=== PATIENT | male | born 1955 | race Caucasian/White ===

== ENCOUNTER 2017-11-26 09:00 | Observation (INO) | payer BC ==
--- NOTE | 2017-11-26 09:54 | ED ---
Shortness of Breath - HPI Summary HPI Summary: This patient is a 62 year old M presenting to ED with a chief complaint of SOB since 11/16/17. The CC is described as worsened since onset. The patient saw Dr. Bowen 2 weeks ago and was dx of UTI. On 11/22/17 the patient reports he had been out in the sun all day, then at night he felt like shit and SOB. The patient rates the pain 0/10 in severity. Symptoms aggravated by ambulation. Symptoms alleviated by nothing. Patient reports chills and some swelling of bilateral LE. Patient denies calf tenderness, fever, CP, BUSH, dizziness, abdominal pain, and urinary discomfort. PMHx of DM, HTN, back injury from fall of 16 ft and broke 6 vertebrae 21 years ago. PSHx include cholecystectomy. The patient has a L knee brace due to loss of sensation in the L . The patient does self catherizations for urination because he is unable to void on his own. The patient uses elbow crutches to walk. Patient is a non-smoker. Patient has FHx of CAD of mother and denies FHx of PE and DVT. Current vitals include 95 BPM, 97 O2 sat, and BP 190/88. Home Medications Medication Instructions Recorded Confirmed Type Amlodipine Besylate 10 mg PO DAILY 08/18/13 10/17/15 History Aspirin [Aspirin 81] 81 mg PO DAILY 08/18/13 10/17/15 History Atorvastatin* [Lipitor 40 MG*] 40 mg PO DAILY 08/18/13 10/17/15 History Insulin Aspart [Novolog] units SUBCUT TID 08/18/13 01/30/14 History Insulin Glargine [Lantus Solostar] 50 units SUBCUT BEDTIME 08/18/13 10/17/15 History Nebivolol HCl [Bystolic] 20 mg PO DAILY 08/18/13 10/17/15 History Clonidine HCl 0.3 mg PO BID 01/30/14 10/17/15 History Lisinopril TAB* [Prinivil TAB*] 20 mg PO DAILY 01/30/14 10/17/15 History Sitagliptin (NF) [Januvia (NF)] 50 mg PO DAILY 10/13/15 10/17/15 History Cefuroxime 500 MG(NF) 500 mg PO BID 11/26/17 11/26/17 History - History of Current Complaint Chief Complaint: EDShortnessOfBreath Time Seen by Provider: 11/26/17 09:34 Hx Obtained From: Patient Onset/Duration: Sudden Onset, Lasting Weeks - since 11/16/17, Still Present Timing: Constant Current Severity: None Dyspnea At: Exertion - ambulation Alleviating Factors: Nothing Associated Signs & Symptoms: Chills - Patient reports chills and some swelling of bilateral LE. Patient denies calf tenderness, fever, CP, BUSH, dizziness, abdominal pain, and urinary discomfort. - Allergy/Home Medications Allergies/Adverse Reactions: Allergies Allergy/AdvReac Type Severity Reaction Status Date / Time sulfamethoxazole Allergy Severe Diarrhea Verified 11/26/17 09:25 [From Bactrim] trimethoprim [From Bactrim] Allergy Severe Diarrhea Verified 11/26/17 09:25 Home Medications: Home Medications Cefuroxime 500 MG(NF) 500 mg PO BID 11/26/17 [History Confirmed 11/26/17] PMH/Surg Hx/FS Hx/Imm Hx Previously Healthy: No Endocrine/Hematology History: Reports: Hx Diabetes Cardiovascular History: Reports: Hx Coronary Artery Disease, Hx Hypertension - Surgical History Surgery Procedure, Year, and Place: SPINE FX REPAIR 18 YRS AGO- RESIDUAL PARALYSIS TO LLE, CHOLECYSTECTOMY - Immunization History Immunizations Up to Date: Yes Infectious Disease History: No Infectious Disease History: Denies: Traveled Outside the [place] in Last 30 Days - Family History Known Family History: Positive: Cardiac Disease, Other Family History: Mother had an IN at 38; denies FHx of PE or DVT - Social History Alcohol Use: Occasionally Alcohol Amount: 1-2 beer per week Substance Use Type: Reports: None Smoking Status (MU): Never Smoked Tobacco Review of Systems Positive: Chills. Negative: Fever Negative: Chest Pain Positive: Shortness Of Breath Negative: Abdominal Pain Positive: other - denies urinary discomfort Positive: Edema - some swelling of bilateral LE, Other - denies calf tenderness Neurological: Other - denies dizziness Negative: Headache Psychological: Normal All Other Systems Reviewed And Are Negative: Yes Physical Exam - Summary Physical Exam Summary: Appearance: Well-appearing, moderate pain distress, well-nourished, SOB at rest , but able to speak full sentences Skin: Warm, complexion is joanna, dry Head: Normal Head/Face inspection, atraumatic Eyes: Conjunctiva clear ENT: Normal inspection Neck: Supple, no nodes, no JVD Respiratory: Lungs clear, SOB at rest Cardio: RRR, No murmur, pulses normal, brisk capillary refill Abdomen: Soft, nontender Bowel sounds: Present Musculoskeletal: Strength Intact/ROM intact, no calf tenderness, 2+ edema bilaterally, patient is wearing a brace on LLE that is removed and no bruising, abrasions or calf tenderness or bony tenderness noted . Psychological: Normal Neuro: Alert, muscle tone normal, no focal deficit Triage Information Reviewed: Yes Vital Signs On Initial Exam: Initial Vitals Temp Pulse Resp BP Pulse Ox 98.3 F 105 20 200/82 98 11/26/17 09:19 11/26/17 09:19 11/26/17 09:19 11/26/17 09:19 11/26/17 09:19 Vital Signs Reviewed: Yes Diagnostics - Vital Signs Vital Signs Temp Pulse Resp BP Pulse Ox 11/26/17 09:19 98.3 F 105 20 200/82 98 - Laboratory Result Diagrams: 11/28/17 06:28 11/28/17 06:28 Lab Statement: Any lab studies that have been ordered have been reviewed, and results considered in the medical decision making process. - Radiology CXR Radiology Interpretation Completed By: Radiologist - No evidence for acute intrathoracic disease. ED physician has reviewed this radiology report. - EKG 0939 Cardiac Rate: NL - 96 BPM EKG Rhythm: Sinus Rhythm ST Segment: Non-Specific Ectopy: None EKG Interpretation: An EKG at 0939 reveals nml AV/IV CT, nml QTc, and nml axis. EKG Comparison: No Significant Change - from 07/16/16 Re-Evaluation - Re-Evaluation First Eval Re-Evaluation Time: 11:14 Change: Unchanged Comment: Patient is still SOB at rest. Discussed plan for admission with the patient. Patient understands and agrees with this plan. Current vitals are 68 BPM, 98 O2, BP 152/72. Course/Dx - Course Assessment/Plan: This patient is a 62 year old M presenting to ED with a chief complaint of SOB since 11/16/17. CXR reveals no evidence for acute intrathoracic disease. EKG done at 0939 shows NSR at 96 BPM, nml AV/IV CT, nml QTc, and nml axis. No significant change from 07/16/16. The patient will be admitted with dx of dyspnea, poorly controlled DM, elevated trop, elevated d-dimer, and chronic kidney disease, stage 4. Patient understands and agrees with this plan. Pt is high risk for PE with his brace and his limited ambulation. Pt is also high risk for CAD with DM, HTN and prior CAD risk factors. Elevated troponin may be associated with his renal disease. It is not a STEMI based on EKG findings. Pt is admitted to hospitalists for further evaluation and treatment. - Diagnoses Differential Diagnosis/HQI/PQRI: Positive: CHF, IN, Pulmonary Embolism, Unstable Angina Provider Diagnoses: Dyspnea, Poorly controlled diabetes mellitus, Elevated troponin, Elevated d- dimer, Chronic kidney disease, stage 4 (severe) - Physician Notifications Discussed Care of Patient With: Dio Noel Time Discussed With Above Provider: 11:15 Instructed by Provider To: Other - Consulted Dr. Noel who accepts the patient for admission. Discharge - Sign-Out/Discharge Documenting (check all that apply): Patient Departure - Discharge Plan Condition: Stable Disposition: ADMITTED TO [facility] - Billing Disposition and Condition Condition: STABLE Disposition: Admitted to [facility] - Attestation Statements Document Initiated by Scribe: Yes Documenting Scribe: Frantz Alvarez Provider For Whom Liaibe is Documenting (Include Credential): Lena Giron MD Scribe Attestation: Frantz Toscano, scribed for Lena Giron MD on 12/01/17 at 2057. Scribe Documentation Reviewed: Yes Provider Attestation: The documentation as recorded by the Frantz hoskins accurately reflects the service I personally performed and the decisions made by , Lena Giron MD
[2017-11-26 10:17] LABS: ABS Basophils 0.1 10^3/ul (0-0.2); ABS Eosinophils 0.4 10^3/ul (0-0.6); ABS Lymphocytes 1.2 10^3/ul (1.0-4.8); ABS Monocytes 0.8 10^3/ul (0-0.8); ABS Neutrophils 10.1 10^3/ul (1.5-7.7); ABS Nucleated RBC 0 10^3/ul; Eosinophil % 3.3 % (0-6); Hematocrit 33 % (42-52); Hemoglobin 11.1 g/dl (14.0-18.0); Lymphocyte % 9.5 % (25-47); Mean Corpuscular HGB Conc 34 g/dl (31-36); Mean Corpuscular Hemoglobin 30 pg (27-31); Mean Corpuscular Volume 89 fL (80-94); Mean Platelet Volume 7.5 um3 (7.4-10.4); Nucleated Red Blood Cells % 0; Platelet Count 275 10^3/ul (150-450); Red Blood Count 3.67 10^6/ul (4.00-5.40); Red Cell Distribution Width 13 % (10.5-15); White Blood Count 12.7 10^3/ul (3.5-10.8)
[2017-11-26 10:27] LABS: INR 0.96 (0.77-1.02)
[2017-11-26 10:37] LABS: EGFR Non-African American 18.4 (>60)
--- NOTE | 2017-11-26 10:58 | RAD ---
Indication: New onset shortness of breath. Comparison: January 30, [address] and chest radiograph. Technique: Upright AP 0955 hours Report: No focal pulmonary lesion, compelling alveolar consolidation, pleural effusion, pneumothorax. Top normal heart size. Unremarkable central pulmonary vasculature and mediastinal contours. Thoracic lumbar junction spinal fusion hardware noted. IMPRESSION: #. No evidence for acute intrathoracic disease.
[2017-11-26] MEDS ORDERED: Albuterol 2.5 MG/3 ML NEB.SOL* (0.083%) INH PRN (12:36)
[2017-11-26] MEDS ORDERED: Ondansetron INJ* 2 MG/ML VIAL IV PRN (12:36)
[2017-11-26] MEDS ORDERED: Al Hydrox/Mg Hydrox/Simet LIQ* 30 ML UDC PO PRN (12:36)
[2017-11-26] MEDS ORDERED: Acetaminophen TAB* 325 MG PO PRN (12:36)
[2017-11-26] MEDS ORDERED: Dextrose 50% Syringe 50 ML* 25 GM/50 ML SYRINGE IV PUSH PRN (12:43)
[2017-11-26] MEDS ORDERED: Magnesium Sulfate 1 GM IV* 1 GM/100 ML BAG IV ONE (12:48)
[2017-11-26] MEDS ORDERED: Heparin VIAL(*) 5000 UNITS/ML VIAL (FIVE THOUSAND) SUBCUT SCH (14:00)
--- NOTE | 2017-11-26 14:39 | RAD ---
Indication: Shortness of breath. Ventilation and perfusion lung scan was performed. Ventilation scan was performed after administration of 8.7 mCi of xenon-133. Perfusion lung scan was performed after intravenous injection of 6.3 mCi of technetium 99 and macroaggregated albumin. There is homogeneous distribution of the radiotracer throughout the lung kraus. No evidence of segmental or subsegmental perfusion defects identified. No evidence of air trapping is noted on the ventilation scan. Recent chest x-ray demonstrates no evidence of alveolar consolidation. IMPRESSION: No evidence of ventilation or perfusion mismatches to suggest pulmonary embolus. Low probability scan for pulmonary emboli.
[2017-11-26] MEDS ORDERED: Perflutren Lipid Microsphere* 3 ML VIAL ONE (15:47)
[2017-11-26 16:36] LABS: ABS Basophils 0.1 10^3/ul (0-0.2); ABS Eosinophils 0.3 10^3/ul (0-0.6); ABS Lymphocytes 1.2 10^3/ul (1.0-4.8); ABS Monocytes 0.9 10^3/ul (0-0.8); ABS Neutrophils 8.7 10^3/ul (1.5-7.7); ABS Nucleated RBC 0 10^3/ul; Eosinophil % 2.5 % (0-6); Hematocrit 34 % (42-52); Hemoglobin 11.4 g/dl (14.0-18.0); Mean Corpuscular HGB Conc 34 g/dl (31-36); Mean Corpuscular Hemoglobin 30 pg (27-31); Mean Corpuscular Volume 90 fL (80-94); Mean Platelet Volume 7.5 um3 (7.4-10.4); Nucleated Red Blood Cells % 0; Platelet Count 273 10^3/ul (150-450); Red Blood Count 3.75 10^6/ul (4.00-5.40); Red Cell Distribution Width 13 % (10.5-15); White Blood Count 11.3 10^3/ul (3.5-10.8)
[2017-11-26] MEDS: Heparin VIAL(*) 5000 UNITS/ML VIAL (FIVE THOUSAND) IV PRN ×2 (16:50→23:38)
[2017-11-26] MEDS: Heparin DRIP 25,000 UNITS(*) 25,000 UNITS/500 ML BAG IV SCH (16:50)
[2017-11-26] MEDS: Insulin LISPRO* 1 UNITS UNIT SUBCUT SCH ×2 (16:51→22:06)
[2017-11-26 16:54] LABS: EGFR Non-African American 18.5 (>60)
--- NOTE | 2017-11-26 17:09 | ECHO ---
Patient: STEF OCAMPO [facility] Rec#: [id number] : 1955 Date: 11/26/2017 Age: 62y Height: 173 cm / 68.1 in Weight: 107 kg / 235.8 lbs Sex: M BSA: 2.2 Room#: [facility] Admit Date#: 11/26/2017 Type: Inpatient Referring: Norma Arcos Reading: Blanca Chaparro MD Cigarette Paper Tester: Elina Gabriel,ZHANNACS,RDMS CC: Adam Sutherland MD Transthoracic Echocardiogram Indication: CHF BP: 149/78 HR: 68 Rhythm: NSR Findings History: Dyspnea, DM, HTN, CKD Technical Comments: The study quality is fair. The study is technically limited due to patient body habitus. Left Ventricle: The left ventricular chamber size is normal. Global left ventricular wall motion and contractility are within normal limits. The estimated ejection fraction is 50-55%. There is an E to A reversal in the mitral valve flow pattern suggestive of diastolic dysfunction. Left Atrium: The left atrium is mildly dilated. Right Ventricle: The right ventricular cavity size is normal. The right ventricular global systolic function is hyperdynamic. Right Atrium: The right atrial cavity size is normal. Aortic Valve: The aortic valve is trileaflet. Systolic excursion of the aortic valve is normal. There is aortic annular calcification. There is no evidence of aortic regurgitation. There is no evidence of aortic stenosis. Mitral Valve: The mitral valve leaflets appear normal. There is no evidence of mitral regurgitation. There is no evidence of mitral stenosis. Tricuspid Valve: The tricuspid valve leaflets are normal. There is no evidence of tricuspid valve regurgitation. Unable to estimate the right ventricular systolic pressure. Pulmonic Valve: There is no evidence of pulmonic valve thickening. There is a trace pulmonic regurgitation. Pericardium: There is no significant pericardial effusion. Aorta: There is borderline dilatation of the ascending aorta. There is mild dilatation of the aortic arch. There is no dilation of the aortic root. Pulmonary Artery: The main pulmonary artery is not well visualized. Venous: The inferior vena cava appears normal in size. There is less than 50% respiratory change in the inferior vena cava dimension. Contrast: Definity was used to optimize study. A total of 2.5 ml was used Conclusions Global left ventricular wall motion and contractility are within normal limits. The estimated ejection fraction is 50-55%. There is an E to A reversal in the mitral valve flow pattern suggestive of diastolic dysfunction. The right ventricular global systolic function is hyperdynamic. All valves appear structurally normal with normal systolic function. There is mild dilatation of the aortic arch. Compared with prior echo of 10/08/09, EF has improved/normalized from 20-25%, prior MR, TR no longer seen. Previously PA pressure estimated at 62 mmHg. Measurements Name Value Normal Range RVIDd (AP) 2D 3.8 cm (0.9 - 2.6) RVDdMajor (2D) 3.1 cm (2.2 - 4.4) RAd ISD 4CH 5 cm (3.4 - 4.9) RA (A4C)W 3.2 cm (2.9 - 4.6) IVSd (2D) 1 cm (0.6 - 1) LVPWd (2D) 1 cm (0.6 - 1) LVIDd (2D) 5.3 cm (3.6 - 5.4) LVIDs (2D) 3.5 cm - LV FS (2D) 34 % (25 - 45) Aortic Annulus 2.3 cm (1.4 - 2.6) Ao root diameter (2D) 3.2 cm (2.1 - 3.5) Ascending Ao 3.5 cm (2.1 - 3.4) Aortic arch 3.7 cm (1.8 - 3.4) LA dimension (AP) 2D 4.9 cm (2.3 - 3.8) LAd ISD 4CH 5.9 cm (2.9 - 5.3) LA ISD 4CH W 4.8 cm (2.5 - 4.5) Name Value Normal Range LA ESV BP (A/L) index 29 ml/m2 - Name Value Normal Range MV E-wave Vmax 0.9 m/sec - MV deceleration time 222 msec - MV A-wave Vmax 1.2 m/sec - MV E:A ratio 0.8 ratio - P. vein D-wave Vmax 0.6 m/sec - P. vein S:D Vmax ratio 1.2 ratio - P. vein A-wave duration 129 msec - LV septal e' Vmax 0.07 m/sec - LV lateral e' Vmax 0.11 m/sec - LV E:e' septal ratio 13.5 ratio - LV E:e' lateral ratio 8 ratio - Name Value Normal Range AV Vmax 1.8 m/sec - AV VTI 42 cm - AV peak gradient 13 mmHg - AV mean gradient 7 mmHg - LVOT diameter 2.2 cm - LVOT Vmax 1.2 m/sec - LVOT VTI 28 cm - LVOT peak gradient 6 mmHg - LVOT mean gradient 3 mmHg - SAYDA (continuity Vmax) 2.6 cm2 - JIM Vmax 0.6 m/sec - Name Value Normal Range MVA (continuity VTI) 2.6 cm2 - Name Value Normal Range RAP 8 mmHg - IVC diameter 1.5 cm - Name Value Normal Range PV Vmax 1.1 m/sec - PV peak gradient 5 mmHg -
[2017-11-26] MEDS ORDERED: Insulin GLARGINE(*) 1 UNITS UNIT SUBCUT SCH (21:00)
--- NOTE | 2017-11-26 21:18 | HP ---
CC: Dr. Sutherland * ADMISSION HISTORY AND PHYSICAL: DATE OF ADMISSION: 11/26/17 PATIENT OF ATTENDING HOSPITALIST: Dr. Robby Noel.* (DICTATED BY AMELIA REED) PRIMARY CARE PHYSICIAN: Dr. Sutherland. CHIEF COMPLAINT: Shortness of breath. HISTORY OF PRESENT ILLNESS: Mr. Mckay is a pleasant 62-year-old gentleman with past medical history significant for hypertension, insulin-dependent diabetes mellitus, back injury from fall at age 21 resulting in left lower extremity paralysis, for which he has been using a left knee brace, who presented to the emergency room earlier today with complaints of worsening shortness of breath for the past 10 days. The patient reports that his shortness of breath started about 2 weeks ago and has gotten progressively worse, usually with exertion; however, he denies any chest pain or history of MD. He had a nuclear stress test done 3 or 4 years ago; however, I do not see any notes from Cardiology in that regards. His last known cardiac catheterization was back in 2009 revealing significant left coronary artery blockage and the patient had failed to maintain any followup with Dr. Baumann since then. He takes baby aspirin on a daily basis and denies any significant chest pain, but noted to be short of breath for the past 10 days. The patient denies any cough, dyspnea at rest, or orthopnea. He has been paralyzed on the left lower extremity since his accident back at age 21; however, he is able to ambulate using his left knee brace as well as his crutches. Due to his injury, he is unable to void on his own and he has been doing self-catheterization at home as well. He was recently seen and diagnosed by Dr. Bowen with urinary tract infection for which he takes twice daily. He is a nonsmoker and denies any history of MD; however, he has family history of coronary artery disease in his mother. He denies any calf pain or history of DVT or PE. The patient was evaluated in the emergency room and found to have slightly elevated white count of 12,000 with normal chest x-ray. His troponin was also elevated at 0.07 on the first draw. His EKG showed no significant ST changes. His D-dimer was elevated at 625 and given his history of chronic kidney disease, the patient was not a good candidate for CTA of the chest, for which a ventilation perfusion scan of the lungs was ordered and the results are pending at this time. Given his health issues and his current complaint of shortness of breath as well as elevated troponin and his known chronic kidney disease, we were asked to see the patient for further evaluation and to consider admission under hospitalist services. PAST MEDICAL HISTORY: As mentioned above, significant for: 1. Hypertension. 2. Insulin-dependent diabetes mellitus. 3. Hyperlipidemia. 4. Coronary artery disease. 5. Urinary retention with self-catheterization at home. 6. History of back injury from fall at age 21 with broken 6 vertebrae. 7. 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 PAST SURGICAL HISTORY: Significant for cholecystectomy and back surgery due to fall. CURRENT MEDICATIONS: His medications at home include: 1. Norvasc 10 mg p.o. daily. 2. Aspirin 81 mg p.o. daily. 3. Lipitor 40 mg p.o. daily. 4. Cefuroxime 500 mg p.o. b.i.d. 5. Clonidine 0.3 mg p.o. b.i.d. 6. Insulin NovoLog per sliding scale. 7. Insulin Lantus 50 units subcu q.h.s. 8. Lisinopril 20 mg p.o. daily. 9. Bystolic 20 mg p.o. daily. 10. Januvia 50 mg p.o. daily. ALLERGIES: He is allergic to Bactrim. FAMILY HISTORY: Significant for family history of coronary artery disease in his mother. Denies any family history of PE or DVT. SOCIAL HISTORY: The patient is a nonsmoker who denies alcohol intake. 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 His , Amy, is the healthcare proxy carrier and he wishes to be a full code. REVIEW OF SYSTEMS: See HPI. Otherwise, 14 points review of systems were evaluated and were essentially negative. PHYSICAL EXAMINATION GENERAL: He is a pleasant, healthy-appearing, upper middle-aged gentleman, in no acute distress or discomfort at the time of admission. VITAL SIGNS: Revealed temperature of 98.3, pulse of 73, respirations of 17 with O2 sats of 98% on room air, his blood pressure is 156/69. HEENT: Head is normocephalic, atraumatic. Sclerae are anicteric. PERRLA. EOMs intact. Oropharynx is pink and moist. NECK: Supple. Trachea midline. No cervical adenopathy, thyromegaly, or JVD. LUNGS: Clear to auscultation bilaterally. HEART: Regular rate and rhythm. Normal S1 and S2 without rubs, murmurs, or gallops. BACK: With normal curvature. No CVA tenderness. ABDOMEN: Soft, round, and obese. There is no tenderness or distention noted. No guarding, rigidity, or rebound tenderness. No hernias or masses noted. RECTAL: Exam deferred at this time. EXTREMITIES: Left lower extremity with no calf tenderness. Sensation is very limited to left lower extremity; however, intact to the rest of his extremities and upper trunk. There is no cyanosis, clubbing, or edema. NEURO: He is awake, alert, and oriented. Tongue is midline and handgrip is equal bilaterally. LABORATORY WORKUP: CBC with white count of 12,700, hemoglobin 11.1, hematocrit 33, and platelets of 275. Chemistry with sodium of 132, potassium is pending at time of admission, chloride is 106, CO2 of 15, BUN 89, and creatinine 3.4, his glucose is 312, magnesium 1.7. LFTs within normal limits. Troponin is 0.07 at first draw. BNP is 31. TSH 1.54. ACCESSORY DIAGNOSTIC DATA: Chest x-ray revealed no acute cardiopulmonary issue and his EKG revealed sinus rhythm with no ST changes. IMPRESSION: A 62-year-old gentleman with past medical history significant for hypertension, insulin-dependent diabetes mellitus, back injury sustained 40 years ago resulting in left lower extremity paralysis as well as chronic kidney disease, for which he has been on dialysis for a period of 1 year, who presented to emergency room with 10 days history of worsening shortness of breath and will be admitted under hospitalist services for the following assessment and plan: 1. Shortness of breath. The patient appears to have intermittent shortness of breath with exertion that appears to be getting worse for the past 10 days. I have looked his record including his cardiac catheterization back in 2009 that revealed significant coronary artery disease and the patient tells me that his last stress test was done 3 or 4 years ago; however, I do not see any record of that. I will search for records regarding his stress test and at this time, unfortunately we cannot do a stress test tomorrow since the patient will be taken from the emergency room to the nuclear medicine for ventilation perfusion scan. He needs to have 48 hours period between his V/Q scan and stress test, which could done this Friday if the patient is still admitted or could also be done as an outpatient setting. I will trend his troponin given his elevated value of 0.07, however in the setting of absence of chest pain I expect that might be related to a demand ischemia. He is clinically stable and will be monitored closely on the telemetry unit. I will trend his troponin and repeat his EKG in the morning. We will also await the results of his V/Q scan and we will cover him prophylactically with heparin for the time being. 2. Hypertension. I will continue his Norvasc and lisinopril at home doses. 3. Coronary artery disease. I will continue his aspirin and Lipitor. We will also obtain his lipid panel in the morning for further evaluation. 4. Insulin-dependent diabetes mellitus. I will continue to cover him with his Lantus q.h.s. as well as lispro coverage per sliding scale. 5. Left lower extremity paralysis. Continue supportive care and he can use his leg brace and ambulate using his crutches at home and I will also obtain physical therapy. 6. DVT prophylaxis. He is a high risk and we will continue DVT prophylaxis with subcu heparin pending results of his V/Q scan. 7. Code status. He is a full code. TIME SPENT: Approximately 60 minutes spent admitting this patient, for which greater than 50% on taking history and performing physical exam. I have discussed the case with my attending who agreed to plan of care. AMELIA REED [id number]/[facility] #: [id number] NADIA
[2017-11-26] MEDS: ceFUROXime TAB(*) 250 MG PO SCH (21:34)
[2017-11-26] MEDS: cloNIDine TAB* 0.1 MG PO SCH (21:34)
[2017-11-26 21:58] LABS: Urine Appearance Clear; Urine Blood Negative (Negative); Urine Color Straw; Urine Ketones Negative (Negative); Urine Protein Negative (Negative); Urine Urobilinogen Negative (Negative)
--- NOTE | 2017-11-26 23:56 | CONS ---
CC: Hospitalist Service; Dr. Sutherland * CONSULTATION REPORT: DATE OF CONSULT: 11/26/17 REASON FOR CONSULT: Shortness of breath. HISTORY OF PRESENT ILLNESS: Mr. Mckay is a 62-year-old gentleman with a history of coronary artery disease, renal insufficiency, as well as hypertension , diabetes, obesity. The patient presented to the hospital because of progressive shortness of breath over the past 2 weeks. This occurs typically with exertion. He denies any orthopnea or PND. He also denies chest discomfort or other anginal equivalent. No arm, neck, or jaw pain. The patient denies any recent changes in his medication. He has not missed any medications. No recent snso-hdu-sjhtgld nonsteroidals or other over-the- counter medications. He does not think he has eaten any saltier food or changed his diet in any way. In the emergency room, he has been treated with Lasix and has had some improvement in breathing. The patient's white count is elevated, but he denies fevers, chills, or sweats. PAST MEDICAL HISTORY: The patient has a past medical history of: 1. Coronary artery disease. Cardiac catheterization 10/07/09 showed LAD 50% proximally, circumflex had 60% proximally, after the OM2 95% occlusion, RCA nondominant and proximal to mid 100% occlusion with bridging collaterals, followed by distal long 80% occlusion and severe left ventricular dysfunction. 2. Insulin-dependent diabetes. 3. Dyslipidemia. 4. Hypertension. 5. Chronic kidney disease, on hemodialysis in the past, but not recently. 6. Urinary retention, self cath. 7. Chronic back injury from fall at age 21 with 6 broken vertebrae. 8. 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 9. Chronic anemia. PAST SURGICAL HISTORY: Includes: 1. Cholecystectomy. 2. Back surgery. MEDICATIONS: Current inpatient medications include: 1. Tylenol p.r.n. 2. Maalox p.r.n. 3. Ventolin nebulizers p.r.n. 4. Norvasc 10 mg a day. 5. Aspirin 81 mg a day. 6. Lipitor 40 mg a day. 7. Ceftin 500 mg b.i.d. 8. Catapres 0.3 mg b.i.d. 9. D50 p.r.n. 10. Heparin drip. 11. Glargine Lantus insulin 50 units subcu q.24 hours. 12. Lispro insulin. 13. Prinivil 20 mg a day. 14. Bystolic 20 mg a day. 15. Zofran p.r.n. 16. Januvia 50 mg a day. ALLERGIES: BACTRIM. FAMILY HISTORY: Positive for coronary disease with his mother. SOCIAL HISTORY: The patient is a nonsmoker. No alcohol intake. Owns a construction company. REVIEW OF SYSTEMS: No recent fevers, chills, sweats, travel. He did have some leg swelling, this is symmetrical. Denies hematuria or dysuria. Denies chest pain, pressure, heaviness, and all other 14 point review of systems was negative. PHYSICAL EXAM: On exam, the patient is 5 feet 8 inches, weighs 238 pounds with a BMI of 36. Vital Signs: 164/73, pulse was 68, respiratory rate is 14, oxygen saturation 96%. General Appearance: Very overweight, somewhat older gentleman, lying in bed, getting an echo initially, appeared comfortable, in no acute distress. Mucous membranes were moist. Neck: Thick from obesity without obvious increased JVD. Breath sounds clear with good effort. No wheezes, rales, or rhonchi. Coronary: S1, S2, regular without murmurs or extra heart sounds. Abdomen: Overweight, active bowel sounds, and soft. Lower Extremity: Showed minimal edema. DIAGNOSTIC STUDIES/LAB DATA: A 12-lead ECG today showed an ejection fraction of 50% to 55% with abnormal diastolic filling, hyperdynamic right ventricular systolic function, and mild dilatation of the aortic arch, valve function was normal. Chest x-ray from this morning showed no evidence of acute disease with normal lung kraus. V/Q scan this morning showed low probability with no V/Q mismatch. Labs: White count 12.7, hemoglobin 11.1, hematocrit 33. INR 0.96, PTT 29.4. D - dimer 625. Sodium 132, potassium 5.4, chloride 106, bicarb 15, BUN 89, creatinine 3.4 ( baseline), glucose 312, magnesium 1.7. Troponin #1, 0.07; troponin #2, 0.26; troponin #3, 0.34. TSH 1.54, thyroxine 8.49. BNP of 31. Urine culture from is positive for E. coli. His most recent lipids of 01/20/07 show total cholesterol 141, triglycerides 200 , LDL cholesterol 81, HDL cholesterol 20. ASSESSMENT AND PLAN: In summary, Wally Mckay is a complex 62-year-old gentleman with known 3-vessel disease with a right coronary artery occluded and depended on collateral flow. He has significant atherosclerotic risk and additionally has had chronic renal insufficiency with a creatinine in the 3s going as far back as 2013 and his BUN since 2013, 60s to 80s. He is now presenting with increased shortness of breath, but no evidence of congestive heart failure on chest x-ray or BNP. He does have a low bicarb, which raises a possibility that his tachypnea is related to his acidosis, but his troponins are elevated and the shortness of breath could be ischemic even with his echo showing normal ventricular function. As cardiac catheterization would be a very high risk ending up on dialysis from dye allergy, prior to any catheterization I would like to have Interventional Cardiology see him. I recommend a Myoview stress test, but we have to wait another day because of his recent V/Q scan. This will help deliniate if the elevated troponins are due to his collateral flow only or from progression of disease in the LAD and circumflex coronary arteries. We may proceed with cardiac catheterization here in outside medical center pending results of Interventional Cardiology's opinion and possibly results of stress testing. Alternatives to stress testing would include a dobutamine stress echo, but this could be difficult with his body habitus and this runs a risk of tachyarrhythmias, supraventricular and ventricular, so I am at this point avoiding this. Other possibilities for his presentation could include hypertensive heart disease and diastolic dysfunction without volume overload. His blood pressures are high. Options in medication adjustments could include converting his Bystolic to Coreg, adding hydralazine, and I agree with the initiation of a statin. Low magnesium noted, he could get a onetime magnesium infusion, but if this is done, care needs to be done not to overload him with his chronic kidney disease. [id number]/[facility] #: [id number] NADIA
[2017-11-27 06:14] LABS: ABS Basophils 0.1 10^3/ul (0-0.2); ABS Eosinophils 0.4 10^3/ul (0-0.6); ABS Lymphocytes 1.6 10^3/ul (1.0-4.8); ABS Monocytes 1.2 10^3/ul (0-0.8); ABS Neutrophils 10.2 10^3/ul (1.5-7.7); ABS Nucleated RBC 0 10^3/ul; Eosinophil % 2.7 % (0-6); Hematocrit 31 % (42-52); Hemoglobin 10.8 g/dl (14.0-18.0); Lymphocyte % 11.8 % (25-47); Mean Corpuscular HGB Conc 35 g/dl (31-36); Mean Corpuscular Hemoglobin 31 pg (27-31); Mean Corpuscular Volume 89 fL (80-94); Mean Platelet Volume 7.6 um3 (7.4-10.4); Nucleated Red Blood Cells % 0.1; Platelet Count 245 10^3/ul (150-450); Red Blood Count 3.49 10^6/ul (4.00-5.40); Red Cell Distribution Width 13 % (10.5-15); White Blood Count 13.4 10^3/ul (3.5-10.8)
[2017-11-27 06:38] LABS: EGFR Non-African American 20.7 (>60)
[2017-11-27] MEDS: Insulin LISPRO* 1 UNITS UNIT SUBCUT SCH ×5 (08:31→21:00)
[2017-11-27] MEDS: Lisinopril TAB* 10 MG PO SCH (08:33)
[2017-11-27] MEDS: cloNIDine TAB* 0.1 MG PO SCH ×2 (08:34→20:22)
[2017-11-27] MEDS: ceFUROXime TAB(*) 250 MG PO SCH ×2 (08:34→20:22)
[2017-11-27] MEDS: Atorvastatin* 40 MG TAB PO SCH (08:35)
[2017-11-27] MEDS: amLODIPine TAB* 5 MG PO SCH (08:35)
[2017-11-27] MEDS: Aspirin EC TAB* 81 MG TAB.EC PO SCH (08:35)
[2017-11-27] MEDS ORDERED: Nebivolol TAB (NF) 5 MG TAB PO SCH (09:00)
--- NOTE | 2017-11-27 10:12 | PN ---
Subjective Date of Service: 11/27/17 Interval History: Pt feels well, had no problems lying flat, SOB occurred first 10 days ago Legs get swollen as the day progresses and get better in AM Objective Active Medications: Acetaminophen (Tylenol Tab*) 975 mg PO Q4H PRN PRN Reason: FEVER/PAIN Al Hydrox/Mg Hydrox/Simethicone (Maalox Plus*) 30 ml PO Q6H PRN PRN Reason: INDIGESTION Albuterol (Ventolin 2.5 Mg/3 Ml Neb.[place]*) 2.5 mg INH [id number] AWAKE PRN PRN Reason: sob/wheezing Amlodipine Besylate (Norvasc Tab*) 10 mg PO DAILY [facility] Last Admin: 11/27/17 08:35 Dose: 10 mg Aspirin (Aspirin Ec Tab*) 81 mg PO DAILY [facility] Last Admin: 11/27/17 08:35 Dose: 81 mg Atorvastatin Calcium (Lipitor*) 40 mg PO DAILY [facility] Last Admin: 11/27/17 08:35 Dose: 40 mg Cefuroxime Axetil (Ceftin Tab(*)) 500 mg PO BID [facility] Last Admin: 11/27/17 08:34 Dose: 500 mg Clonidine HCl (Catapres Tab*) 0.3 mg PO BID [facility] Last Admin: 11/27/17 08:34 Dose: 0.3 mg Dextrose (D50w Syringe 50 Ml*) 12.5 gm IV PUSH .FOR FS < 60 - SS PRN PRN Reason: FS < 60 Heparin Sodium (Porcine) (Heparin Vial(*)) 0 units IV .PRN BOLUS PRN PRN Reason: HEPARIN DRIP PROTOCOL Last Admin: 11/26/17 23:38 Dose: 2,000 units Heparin Sodium/Dextrose (Heparin Drip 25,000 Units(*)) 25,000 units in 500 mls @ 0 mls/hr IV PER RATE [facility]; Protocol Last Admin: 11/26/17 16:50 Dose: 20 mls/hr Insulin Glargine (Lantus(*)) 50 units SUBCUT Q24H [facility] Last Admin: 11/26/17 22:07 Dose: 50 unit Insulin Human Lispro (Humalog*) 0 units SUBCUT ACHS [facility]; Protocol Last Admin: 11/27/17 08:31 Dose: 2 units Lisinopril (Prinivil Tab*) 20 mg PO DAILY [facility] Last Admin: 11/27/17 08:33 Dose: 20 mg Nebivolol (Bystolic Tab (Nf)) 20 mg PO DAILY [facility] Ondansetron HCl (Zofran Inj*) 4 mg IV Q4H PRN PRN Reason: NAUSEA/VOMITING Sitagliptin Phosphate (Januvia (Nf)) 50 mg PO DAILY [facility] Vital Signs - 8 hr 11/27/17 11/27/17 04:38 08:08 Temperature 98.3 F 97.6 F Pulse Rate 68 68 Respiratory 20 16 Rate Blood Pressure 148/61 157/70 (mmHg) O2 Sat by Pulse 100 99 Oximetry Oxygen Devices in Use Now: None Appearance: 62 yo M in nAD, aAOx3 Eyes: No Scleral Icterus, PERRLA Ears/Nose/Mouth/Throat: NL Teeth, Lips, Gums, Mucous Membranes Moist Neck: NL Appearance and Movements; NL JVP, Trachea Midline Respiratory: Symmetrical Chest Expansion and Respiratory Effort, Clear to Auscultation Cardiovascular: NL Sounds; No Murmurs; No JVD Abdominal: NL Sounds; No Tenderness; No Distention Lymphatic: No Cervical Adenopathy Extremities: No Clubbing, Cyanosis, - - trace pedal edema b/l Skin: No Nodules or Sclerosis, - - venous stasis distal LE's discoloration Neurological: Alert and Oriented x 3, - - left LE weak-chronic Result Diagrams: 11/27/17 06:06 11/27/17 06:06 Assess/Plan/Problems-Billing Assessment: 62 yo M wioth h/o CKD(transiently on HD x 2 year , 5 yrs ago), cardiomyopathy in 2009 (EF 20%), cath in 2009 showed RCA occlusion, DM2 presents with SOB - Patient Problems (1) SOB (shortness of breath) Comment: appears to be angina equivalent. Trop peaked at 0.34 Cont BB, heparin gtt, statin Echo shwos EF 55% Appreciate cardiology consult Stress test planned for AM (2) HTN (hypertension) Comment: high on Catapress, Norvasc, Bystolic, Lisinopril will increase Bystolic from 20 to 25 mg daily (3) DM2 (diabetes mellitus, type 2) Comment: cont Lantus, lowered the dose for pt NPO in AM, cont ISS cont Januvia (4) CKD (chronic kidney disease) stage 4, GFR 15-29 ml/min Comment: under the case of DR. Mcmanus, stable Due to DM2 (5) DVT prophylaxis Comment: heparin gtt to be cont (6) Hyperkalemia Comment: mild, chronic at baseline Status and Disposition: Inpatient
[2017-11-27] MEDS: Zinc Oxide 40% (TOPICAL)* TUBE TOPICAL SCH ×2 (13:15→20:23)
[2017-11-27] MEDS: Heparin DRIP 25,000 UNITS(*) 25,000 UNITS/500 ML BAG IV SCH (17:13)
[2017-11-27] MEDS: PTO: Sitagliptin (NF) 50 MG TAB PO SCH (18:12)
[2017-11-27] MEDS ORDERED: Insulin GLARGINE(*) 1 UNITS UNIT SUBCUT SCH (21:00)
[2017-11-28] MEDS ORDERED: Loperamide CAP* 2 MG PO PRN (00:35)
[2017-11-28 07:17] LABS: Hematocrit 30 % (42-52); Hemoglobin 10.2 g/dl (14.0-18.0); Mean Corpuscular HGB Conc 35 g/dl (31-36); Mean Corpuscular Hemoglobin 31 pg (27-31); Mean Corpuscular Volume 90 fL (80-94); Platelet Count 222 10^3/ul (150-450); Red Cell Distribution Width 13 % (10.5-15); White Blood Count 11.9 10^3/ul (3.5-10.8)
[2017-11-28 07:40] LABS: EGFR Non-African American 21.2 (>60)
[2017-11-28] MEDS ORDERED: Nebivolol TAB (NF) 5 MG TAB PO SCH (09:00)
[2017-11-28] MEDS: Insulin LISPRO* 1 UNITS UNIT SUBCUT SCH ×2 (09:16→14:59)
[2017-11-28] MEDS: PTO: Sitagliptin (NF) 50 MG TAB PO SCH (09:18)
[2017-11-28] MEDS: Atorvastatin* 40 MG TAB PO SCH (09:19)
[2017-11-28] MEDS: amLODIPine TAB* 5 MG PO SCH (09:19)
[2017-11-28] MEDS: Lisinopril TAB* 10 MG PO SCH (09:20)
[2017-11-28] MEDS: cloNIDine TAB* 0.1 MG PO SCH (09:21)
[2017-11-28] MEDS: Aspirin EC TAB* 81 MG TAB.EC PO SCH (09:21)
[2017-11-28] MEDS: ceFUROXime TAB(*) 250 MG PO SCH (09:26)
--- NOTE | 2017-11-28 13:03 | RAD ---
HISTORY: SOB, elev trop COMPARISONS: None TECHNIQUE: A 1 day stress/rest myocardial perfusion study was performed, with pharmacologic stress. The stress portion was monitored by Dr. Langston. Gated SPECT imaging was performed, with CT-based attenuation correction DOSE: Stress: Technetium 99m tetrofosmin, 25.51 millicuries, injected at 11:50 AM on November 28, 2017 Rest: Technetium 99m tetrofosmin, 10.6 millicuries, injected at 9:00 AM on November 28, 2017 Pharmacologic agent: Lexiscan FINDINGS: CARDIAC MONITORING: No significant changes with stress EF: 47 % TID: 0.98 MOTION: Normal motion, with normal wall thickening. PERFUSION: There is a moderate-sized reversible perfusion defects involving the inferior wall OTHER: None IMPRESSION: DECREASED EJECTION FRACTION WITH MODERATE REVERSIBLE PERFUSION DEFECT OF THE INFERIOR WALL SUGGESTIVE OF ISCHEMIA ASSESSMENT: INTERMEDIATE RISK. Based on imaging criteria from ACC/AHA 2002. Guideline Update for the Management of Patient's with Chronic Stable Angina, table 23. Noninvasive Risk Stratification.
[2017-11-28] MEDS: Zinc Oxide 40% (TOPICAL)* TUBE TOPICAL SCH (13:15)
[2017-11-28] MEDS ORDERED: Regadenoson* 0.4 MG/5 ML SYRINGE ONE (14:32)
[2017-11-28 16:13] VITALS: BP 142/65
[2017-11-29] MEDS ORDERED: PTO:Nebivolol (NF) 10 MG TAB PO SCH (09:00)
[2017-11-29] MEDS ORDERED: NEBIVOLOL 5 MG PO SCH (09:00)
--- NOTE | 2017-11-29 10:47 | DS ---
CC: Dr. Sutherland; Dr. Fang; Dr. Langston; Dr. Chaparro.* DISCHARGE SUMMARY: DATE OF ADMISSION: 11/26/17 DATE OF DISCHARGE: 11/28/17 PRIMARY CARE PROVIDER: Dr. Sutherland. DISCHARGE DIAGNOSES: Dyspnea on exertion, likely angina equivalent in patient with intermediate probability cardiac stress test and elevated troponin. SECONDARY DIAGNOSES: 1. History of chronic kidney disease stage 3. 2. Diabetes type 2. 3. Hypertension. 4. Hyperlipidemia. 5. History of coronary artery disease. 6. History of urinary retention and self catheterization at home. 7. History of left lower extremity paralysis due to back injury in the past. 8. History of chronic sacral ulcer wound for which the patient visits a [facility] monthly. MEDICATIONS AT DISCHARGE: Include: 1. Amlodipine 10 mg daily. 2. Aspirin 81 mg daily. 3. Lipitor 40 mg daily. 4. Cefuroxime 500 mg b.i.d. use as directed by primary care provider. 5. Clonidine 0.3 mg b.i.d. 6. Insulin aspart on sliding scale 3 times a day. 7. Insulin Lantus 50 units daily. 8. Lisinopril 20 mg daily. 9. Bystolic 25 mg daily which was increased from 20 mg a day previous. 10. Januvia 50 mg daily. LABORATORY DATA AND STUDIES PERFORMED DURING THE HOSPITAL STAY: On 11/28/17 sodium of 135, potassium of 4.9, chloride 109, carbon dioxide 17, BUN 74, creatinine 3.01. The patient's troponin peaked at 0.34. CBC: White blood cell count of 11.9, hemoglobin of 10.2, hematocrit of 30, and platelets of 222. V/Q scan performed on 11/26/17. Impression: "No evidence of ventilation or perfusion mismatches to suggest pulmonary embolus. Low probability scan for PE. Transthoracic echocardiogram obtained on 11/26/17 showed EF of 50% to 55% with global left ventricular wall motion and contractility within normal limits. There is suggestive of diastolic dysfunction. Compared to prior echo from 2009 EF had improved, normalized from 20% to 25%. Prior mitral regurgitation and tricuspid regurgitation no longer is seen." Cardiac stress test documented on 11/28/17 which was pharmacologic. Impression : "Decreased ejection fraction with moderate reversible perfusion defects of the inferior wall suggestive of ischemia." The EF was noted to be 47%. In addition, the patient is recommended to follow up with his primary care provider in 4 to 7 days. The patient is recommended to follow up with Dr. Fang in approximately 1 to 2 weeks. HOSPITALIZATION COURSE: Wally Mckay is a 62-year-old male with history of chronic kidney disease stage 4 who was transiently on dialysis approximately 5 years ago and who had a history of coronary artery disease in 2009 and cardiac catheterization showed occluded LAD of 50% proximally, circumflex 60% proximally , and OM2 of 95% occlusion and RCA 100% occlusion with bridging collaterals who presented to the hospital complaining of shortness of breath for the past 2 weeks. The dyspnea was usually with exertion. Denied any chest pain, neck pain , or jaw pain. He was admitted to the hospital and he was noted to have elevated troponins which peaked at 0.34. The patient had a V/Q scan performed on admission to rule out PE which was negative. The patient has a history of chronic left lower extremity paralysis which was due to accident in the remote past. Due to that a pharmacologic stress test was indicated, but needed to be performed 2 days after the V/Q scan. The stress test showed intermediate probability for ischemia, but the location of the ischemia matched with cardiac cath from 2009 which was in the distribution of the right coronary artery. At this point due to the patient's significant chronic kidney disease, the risk of cardiac catheterization and may place the patient into a need of dialysis. At this point, after the discussion with cardiology it was decided for the patient to continue current treatment medically without any intervention. We did increase the patient's Bystolic from 20 to 25 mg daily due to the patient's systolic pressures ranging into 150s. The remaining medications were unchanged. The patient was noted to have sacral wound which is chronic for the past 10 years and for which he usually is seen at the W[facility] on a monthly basis. He is being discharged to home with recommendations to follow up as above mentioned. PHYSICAL EXAMINATION: At the time of discharge, blood pressure of 142/65, heart rate of 61 and regular, respiratory rate 20, and oxygen saturation of 98% on room air. Temperature 97.9. General Appearance: This is a very pleasant 62 -year-old male who is in no acute distress. Alert, awake, and oriented x3. HEENT: Head atraumatic and normocephalic. Eyes: Pupils are equal, round, and reactive to light and accommodation. Oropharynx clear, mucosa moist. Neck: Supple. No JVD, no bruits bilaterally. Cardiovascular: Regular, rate, and rhythm. No murmur. Respiratory: Clear to auscultation bilaterally. Abdomen: Soft and nontender. Bowel sounds present in all 4 quadrants. Extremities: There is trace bilateral ankle edema. Pulses are +2 bilaterally. There is no clubbing or cyanosis. On evaluation of the skin, the patient was not interested in uncovering his Mepilex during my evaluation today. He wished for the wound to be not examined by myself today. On neuro evaluation speech clear. Cranial nerves II through XII grossly intact. Motor strength: 5/5 bilaterally apart from the left lower extremity edema which proximally in the quadriceps muscle is approximately 4/5 and distally is weak at 3/5. Once again that is in the left lower extremity. Please note, that this is a short summary of the patient's hospitalization. Please refer to further medical records for details. TIME SPENT: Approximately 40 minutes was spent on the patient's discharge. [id number]/[facility] #: [id number] MTDD
== END 2017-11-28 18:50 | disposition home or self-care (01) ==
LOC: ED 09:00 → MEDTELE 13:01
PROVIDERS: ADMIT Student in an Organized Health Care Education/Training Program; ATTEND Internal Medicine
DX: R06.02 Shortness of breath (principal); R06.09 Other forms of dyspnea; R74.8 Abnormal levels of other serum enzymes; I12.0 Hypertensive chronic kidney disease with stage 5 chronic kidney disease or end stage renal disease; N18.3 Chronic kidney disease, stage 3 (moderate); E11.9 Type 2 diabetes mellitus without complications; E78.5 Hyperlipidemia, unspecified; I25.10 Atherosclerotic heart disease of native coronary artery without angina pectoris; R33.9 Retention of urine, unspecified; G81.94 Hemiplegia, unspecified affecting left nondominant side; Z79.4 Long term (current) use of insulin; Z79.899 Other long term (current) drug therapy; Z79.82 Long term (current) use of aspirin; Z79.84 Long term (current) use of oral hypoglycemic drugs; Z88.2 Allergy status to sulfonamides; Z88.8 Allergy status to other drugs, medicaments and biological substances; I77.819 Aortic ectasia, unspecified site
CPT/HCPCS: 36415; 71045; 78452; 78582; 80048; 80053; 80061; 81003; 82550; 82553; 82565; 83605; 83735; 83880; 84436; 84443; 84484; 84520; 85025; 85027; 85379; 85610; 85730; 93005; 93017; 93306; 96365; 96367; 99284; A9270-GY; A9502; A9540; A9558; C8929; G0378; J1644; J2785; J3475

== ENCOUNTER 2021-01-15 09:04 | Observation (INO) ==
[~2021-01-15 09:04] MED LIST: Clindamycin 900 MG/D5W BAG 900 MG/50 ML BAG IVPB SCH; Piperacillin/Tazobac ADVAN 3.375 GM in NS 0.9% 100 ml BAG 100 ML IV SCH
[2021-01-15 11:31] LABS: Hematocrit 30 % (42-52); Hemoglobin 10.1 g/dL (14.0-18.0); Mean Corpuscular HGB Conc 34 g/dL (31-36); Mean Corpuscular Hemoglobin 31 pg (27-31); Mean Corpuscular Volume 91 fL (80-94); Mean Platelet Volume 8.2 fL (7.4-10.4); Platelet Count 289 10^3/uL (150-450); Red Blood Count 3.32 10^6 /uL (4.18-5.48); Red Cell Distribution Width 13 % (10-15); White Blood Count 35.7 10^3/uL (3.5-10.8)
[2021-01-15 11:49] LABS: Activated Partial Thrombo Time 21.1 seconds (26.0-38.0); INR 1.17 (0.86-1.15)
[2021-01-15] MEDS ORDERED: Vancomycin 2,000 MG in NS 0.9% 250 ml 250 ML IVPB ONE (12:10)
[2021-01-15] MEDS ORDERED: Piperacillin/Tazobac ADVAN 3.375 GM in NS 0.9% 100 ml BAG 100 ML IV ONE (12:11)
[2021-01-15 12:17] LABS: ALT 39 U/L (7-52); AST 35 U/L (13-39); Albumin 3.6 g/dL (3.2-5.2); Albumin/Globulin Ratio 0.8 (1-3); Alkaline Phosphatase 124 U/L (35-149); Anion Gap 13 mmol/L (2-11); Blood Urea Nitrogen 70 mg/dL (6-24); C Reactive Protein 369.45 mg/L (<8.01); CO2 Carbon Dioxide 20 mmol/L (22-32); Calcium 8.9 mg/dL (8.6-10.3); Chloride 93 mmol/L (101-111); Globulin 4.7 g/dL (2-4); Glucose 359 mg/dL (70-100); Potassium 4.1 mmol/L (3.5-5.0); Sodium 126 mmol/L (135-145); Total Protein 8.3 g/dL (6.4-8.9)
[2021-01-15 12:18] LABS: Rapid COVID-19 Molecular Undetected (Undetected)
[2021-01-15] MEDS ORDERED: Vancomycin 2,000 MG in NS 0.9% 500 ml BAG 500 ML IVPB ONE (12:20)
[2021-01-15] MEDS ORDERED: Lactated Ringers 1000 ml BAG 1,000 ML IV ONE ×2 (12:23)
[2021-01-15 12:30] LABS: ABS Basophils 0.2 10^3/ul (0-0.2); ABS Lymphocytes 1.2 10^3/ul (1.0-4.8); ABS Monocytes 2.4 10^3/ul (0-0.8); Eosinophil % 0.1 %; Lymphocyte % 3.3 %
[2021-01-15] MEDS ORDERED: Piperacillin/Tazobac 3.375 GM BAG ONE (12:33)
[2021-01-15] MEDS ORDERED: Vancomycin per Pharmacy 1 EA NOTE FOLLOW UP SCH ×2 (13:00→20:00)
[2021-01-15] MEDS ORDERED: Dextrose 50% Syringe 50 ml 25 GM/50 ML SYRINGE IV PUSH PRN (16:25)
[2021-01-15] MEDS ORDERED: Cefepime ADVAN 1 GM in NS 0.9% 50 ML 50 ML IVPB SCH (20:00)
[2021-01-15 20:23] LABS: Urine Appearance Cloudy; Urine Bilirubin Negative (Negative); Urine Blood 2+ (Negative); Urine Color Yellow; Urine Glucose 3+(>=500 mg/dL) (Negative); Urine Ketones Trace (Negative); Urine Nitrite Negative (Negative); Urine Protein 3+(>=500 mg/dL) (Negative); Urine Specific Gravity 1.012 (1.002-1.030); Urine Urobilinogen Negative (Negative)
[2021-01-15 20:26] LABS: Urine Bacteria 1+ (Absent); Urine Red Blood Cell 1+(3-5/hpf) (Absent); Urine Squamous Epithelial Cell Present (Absent); Urine White Blood Cell 3+(>20/hpf) (Absent)
[2021-01-15] MEDS ORDERED: Clindamycin 900 MG/D5W BAG IVPB ONE (20:30)
[2021-01-15 20:51] LABS: Anion Gap 12 mmol/L (2-11); Blood Urea Nitrogen 69 mg/dL (6-24); CO2 Carbon Dioxide 22 mmol/L (22-32); Calcium 8.6 mg/dL (8.6-10.3); Chloride 93 mmol/L (101-111); Glucose 440 mg/dL (70-100); Glucose Confirmatory 440 mg/dL (70-100); Sodium 127 mmol/L (135-145)
[2021-01-15] MEDS ORDERED: Linezolid 600 MG/ 300 ML IVPB SCH (21:00)
[2021-01-15] MEDS ORDERED: Insulin NPH 100 units/ml SUBCUT SCH (21:00)
[2021-01-15] MEDS ORDERED: Nebivolol 10 mg TAB (NF) PO ONE (21:01)
[2021-01-15] MEDS ORDERED: Metoprolol Tartrate 5 mg VIAL 5 ml VIAL (1 mg/ml) IV ONE (21:04)
[2021-01-15 21:05] LABS: Troponin I 0.05 ng/mL (<0.03)
[2021-01-15] MEDS ORDERED: Insulin GLARGINE 100 un/ml 10 ml VIAL SUBCUT ONE (21:12)
[2021-01-15] MEDS ORDERED: Lidocaine 1% w EPI 1:100,000 MDV 20 ML VIAL ONE (21:29)
[2021-01-15] MEDS ORDERED: Heparin 5000 UNITS/ML 1 mL VIAL SUBCUT SCH (22:00)
[2021-01-15] MEDS ORDERED: NS 0.9% 1000 ml BAG 1,000 ML IV SCH (22:15)
[2021-01-15 22:23] VITALS: BP 177/79
[2021-01-15] MEDS ORDERED: HYDROmorphone 0.5 MG/0.5 ML SYRINGE IV SLOW PU ONE (22:27)
[2021-01-16] MEDS ORDERED: Sodium Bicarb 650 mg (ANTACID) TAB PO SCH (09:00)
[2021-01-16] MEDS ORDERED: Aspirin EC 81 mg TAB.EC (enteric coated) PO SCH (09:00)
[2021-01-16] MEDS ORDERED: Nebivolol 10 mg TAB (NF) PO SCH (09:00)
== END 2021-01-15 22:22 | disposition short-term general hospital (02) ==
LOC: ED 09:04 → EDHOLD 09:04
PROVIDERS: ADMIT Internal Medicine; ATTEND Internal Medicine

== ENCOUNTER 2022-08-31 09:58 | Inpatient (IN) ==
[2022-08-31 11:13] LABS: Mean Corpuscular Hemoglobin 27.8 pg (27-33); Mean Corpuscular Hgb Conc 33.4 g/dL (31-36); Mean Corpuscular Volume 83.1 fL (80-97); Mean Platelet Volume 7.4 fL (7.5-11.2); Platelet Count 233 10^3/uL (150-450); Red Blood Count 2.88 10^6/uL (4.06-5.63); Red Cell Distribution Width 17.2 % (12-17); White Blood Count 28.7 10^3/uL (3.6-10.2)
[2022-08-31 11:31] LABS: Albumin 3.5 g/dL (3.2-5.2); Albumin/Globulin Ratio 0.8 (1-3); CRP High Sensitivity 32.47 mg/L (<2.00); Calcium 9.2 mg/dL (8.6-10.3); Globulin 4.2 g/dL (2-4); Potassium 3.7 mmol/L (3.5-5.0); Total Bilirubin 0.3 mg/dL (0.2-1.0); Total Protein 7.7 g/dL (6.4-8.9); eGFR CKD-EPI 15.6 (>60)
[2022-08-31 11:53] LABS: ABS Lymphocytes 1.7 10^3/ul (1.0-4.8); ABS Monocytes 2.3 10^3/ul (0.0-1.1); ABS Neutrophils 24.7 10^3/ul (1.5-7.6); RBC Morphology Normal (Normal)
[2022-08-31 11:54] LABS: ABS Basophils 0.1 10^3/uL (0.0-0.1); ABS Lymphocytes 1.2 10^3/uL (1.0-4.8); ABS Monocytes 4.6 10^3/uL (0.0-1.1); ABS Neutrophils 22.6 10^3/uL (1.5-7.6); Eosinophil % 0.1 %; Lymphocyte % 4.2 %
[2022-08-31 12:44] LABS: High Sensitivity Troponin 1 Hr 1317 pg/mL (<20)
[2022-08-31] MEDS ORDERED: Dextrose 50% Syringe 50 ml 25 GM/50 ML SYRINGE IV PUSH PRN (15:27)
[2022-08-31] MEDS ORDERED: Labetalol IV 5 MG/ML 20 ml VIAL IV PUSH ONE (16:17)
[2022-08-31 17:27] LABS: Magnesium 1.4 mg/dL (1.9-2.7)
[2022-08-31] MEDS ORDERED: DAPTOMYCIN IVPB SCH (18:00)
[2022-08-31] MEDS ORDERED: NS 0.9% IVPB SCH (18:00)
[2022-08-31] MEDS ORDERED: DAPTOmycin SDV 700 MG in NS 0.9% 50 ML 50 ML IVPB SCH ×2 (18:12→18:30)
[2022-08-31] MEDS ORDERED: Magnesium Sulf 4 GM/100 ML IV 4,000 MG/100 ML BAG IVPB ONE (18:24)
[2022-08-31 18:43] LABS: Urine Appearance Cloudy; Urine Bilirubin Negative (Negative); Urine Blood Negative (Negative); Urine Color Yellow; Urine Glucose Negative (Negative); Urine Ketones Negative (Negative); Urine Nitrite Positive (Negative); Urine Protein 2+(100 mg/dL) (Negative); Urine Specific Gravity 1.009 (1.002-1.030); Urine Urobilinogen Negative (Negative)
[2022-08-31 18:55] LABS: Urine Bacteria 1+ (Absent); Urine Red Blood Cell Trace(0-2/hpf) (Absent); Urine Squamous Epithelial Cell Present (Absent); Urine White Blood Cell 3+(>20/hpf) (Absent)
[2022-08-31] MEDS: Sodium Bicarb 650 mg (ANTACID) TAB PO SCH (21:19)
[2022-08-31] MEDS: Heparin 5000 UNITS/ML 1 mL VIAL SUBCUT SCH (21:20)
[2022-08-31 21:55] LABS: Activated Partial Thrombo Time 28.9 seconds (26.0-38.0); INR 1.36 (0.88-1.18)
[2022-09-01 07:18] LABS: Hematocrit 23.4 % (38-53); Hemoglobin 7.8 g/dL (13.2-16.3); Mean Corpuscular Hemoglobin 28.6 pg (27-33); Mean Corpuscular Hgb Conc 33.3 g/dL (31-36); Mean Corpuscular Volume 85.9 fL (80-97); Mean Platelet Volume 7.7 fL (7.5-11.2); Platelet Count 204 10^3/uL (150-450); Red Blood Count 2.73 10^6/uL (4.06-5.63); Red Cell Distribution Width 17.3 % (12-17); White Blood Count 27.2 10^3/uL (3.6-10.2)
[2022-09-01 07:38] LABS: Albumin 3.4 g/dL (3.2-5.2); Albumin/Globulin Ratio 0.9 (1-3); Calcium 8.8 mg/dL (8.6-10.3); Creatinine, Serum 3.8 mg/dL (0.67-1.17); Globulin 3.9 g/dL (2-4); Magnesium 2.3 mg/dL (1.9-2.7); Potassium 4.1 mmol/L (3.5-5.0); Total Bilirubin 0.4 mg/dL (0.2-1.0); Total Protein 7.3 g/dL (6.4-8.9); eGFR CKD-EPI 16.6 (>60)
[2022-09-01 08:05] LABS: ABS Basophils 0.2 10^3/uL (0.0-0.1); ABS Lymphocytes 1.1 10^3/uL (1.0-4.8); ABS Monocytes 3.5 10^3/uL (0.0-1.1); ABS Neutrophils 22.4 10^3/uL (1.5-7.6); ABS Nucleated RBC 0.01 10^3/ul; RBC Morphology Normal (Normal)
[2022-09-01] MEDS: Sodium Bicarb 650 mg (ANTACID) TAB PO SCH ×2 (08:36→20:41)
[2022-09-01] MEDS: Aspirin EC 81 mg TAB.EC (enteric coated) PO SCH (08:42)
[2022-09-01] MEDS: Heparin 5000 UNITS/ML 1 mL VIAL SUBCUT SCH ×2 (08:43→20:42)
[2022-09-01] MEDS ORDERED: Furosemide 40 mg/4 ml IV VIAL IV SLOW PU ONE (08:59)
[2022-09-01 09:38] LABS: High Sensitivity Troponin 1 Hr 600 pg/mL (<20)
[2022-09-01] MEDS: Insulin GLARGINE 100 un/ml 10 ml VIAL SUBCUT SCH (10:31)
[2022-09-01 10:56] LABS: High Sensitivity Troponin 3 Hr 674 pg/mL (<20)
[2022-09-01] MEDS: Amoxicillin/Clavul 500/125 TAB (Augmentin 500 mg tab) PO SCH (20:40)
[2022-09-02 06:41] LABS: Hematocrit 23.6 % (38-53); Hemoglobin 7.9 g/dL (13.2-16.3); Mean Corpuscular Hemoglobin 28.6 pg (27-33); Mean Corpuscular Hgb Conc 33.5 g/dL (31-36); Mean Corpuscular Volume 85.3 fL (80-97); Mean Platelet Volume 7.6 fL (7.5-11.2); Platelet Count 192 10^3/uL (150-450); Red Blood Count 2.77 10^6/uL (4.06-5.63); Red Cell Distribution Width 17.1 % (12-17); White Blood Count 26.5 10^3/uL (3.6-10.2)
[2022-09-02 06:44] LABS: ABS Basophils 0.1 10^3/uL (0.0-0.1); ABS Lymphocytes 0.9 10^3/uL (1.0-4.8); ABS Monocytes 2.7 10^3/uL (0.0-1.1); ABS Neutrophils 22.8 10^3/uL (1.5-7.6); Lymphocyte % 3.5 %
[2022-09-02 06:56] LABS: Albumin 3.3 g/dL (3.2-5.2); Albumin/Globulin Ratio 0.8 (1-3); C Reactive Protein 277.97 mg/L (<8.01); Calcium 8.9 mg/dL (8.6-10.3); Creatinine, Serum 4.01 mg/dL (0.67-1.17); Globulin 4.1 g/dL (2-4); Magnesium 2.2 mg/dL (1.9-2.7); Potassium 4.2 mmol/L (3.5-5.0); Total Bilirubin 0.5 mg/dL (0.2-1.0); Total Protein 7.4 g/dL (6.4-8.9); eGFR CKD-EPI 15.6 (>60)
[2022-09-02] MEDS ORDERED: Sulfur Hexaflouride MICROSPHR 25 MG VIAL ONE (07:56)
[2022-09-02] MEDS: Sodium Bicarb 650 mg (ANTACID) TAB PO SCH ×2 (10:13→22:20)
[2022-09-02] MEDS: Aspirin EC 81 mg TAB.EC (enteric coated) PO SCH (10:13)
[2022-09-02] MEDS: Amoxicillin/Clavul 500/125 TAB (Augmentin 500 mg tab) PO SCH ×2 (10:13→22:19)
[2022-09-02] MEDS: Insulin GLARGINE 100 un/ml 10 ml VIAL SUBCUT SCH (10:14)
[2022-09-02] MEDS: Heparin 5000 UNITS/ML 1 mL VIAL SUBCUT SCH ×2 (13:02→22:20)
[2022-09-03 07:02] LABS: Hematocrit 24.6 % (38-53); Hemoglobin 8.2 g/dL (13.2-16.3); Mean Corpuscular Hemoglobin 28.9 pg (27-33); Mean Corpuscular Hgb Conc 33.5 g/dL (31-36); Mean Corpuscular Volume 86.4 fL (80-97); Mean Platelet Volume 7.9 fL (7.5-11.2); Platelet Count 210 10^3/uL (150-450); Red Blood Count 2.85 10^6/uL (4.06-5.63); Red Cell Distribution Width 17.4 % (12-17); White Blood Count 23.3 10^3/uL (3.6-10.2)
[2022-09-03 07:04] LABS: ABS Basophils 0.1 10^3/uL (0.0-0.1); ABS Lymphocytes 0.7 10^3/uL (1.0-4.8); ABS Monocytes 1.3 10^3/uL (0.0-1.1); ABS Neutrophils 21.3 10^3/uL (1.5-7.6); ABS Nucleated RBC 0.01 10^3/ul; Lymphocyte % 2.9 %
[2022-09-03 07:27] LABS: Albumin 3.4 g/dL (3.2-5.2); Albumin/Globulin Ratio 0.8 (1-3); C Reactive Protein 289.23 mg/L (<8.01); Calcium 8.9 mg/dL (8.6-10.3); Creatinine, Serum 4.21 mg/dL (0.67-1.17); Globulin 4.1 g/dL (2-4); Magnesium 2.4 mg/dL (1.9-2.7); Potassium 4.7 mmol/L (3.5-5.0); Total Bilirubin 0.5 mg/dL (0.2-1.0); Total Protein 7.5 g/dL (6.4-8.9); eGFR CKD-EPI 14.7 (>60)
[2022-09-03] MEDS: Heparin 5000 UNITS/ML 1 mL VIAL SUBCUT SCH ×2 (08:34→22:04)
[2022-09-03] MEDS: Insulin GLARGINE 100 un/ml 10 ml VIAL SUBCUT SCH (08:37)
[2022-09-03] MEDS: Sodium Bicarb 650 mg (ANTACID) TAB PO SCH ×2 (08:38→22:03)
[2022-09-03] MEDS: Amoxicillin/Clavul 500/125 TAB (Augmentin 500 mg tab) PO SCH ×2 (08:39→22:02)
[2022-09-03] MEDS: Aspirin EC 81 mg TAB.EC (enteric coated) PO SCH (08:40)
[2022-09-03 09:21] LABS: Phosphorus 6.6 mg/dL (2.5-5.0)
[2022-09-03] MEDS: Saline NASAL SPRAY 0.65% BTL BOTH NARES PRN (18:01)
[2022-09-04] MEDS: Saline NASAL SPRAY 0.65% BTL BOTH NARES PRN (05:22)
[2022-09-04 06:27] LABS: ABS Lymphocytes 0.7 10^3/uL (1.0-4.8); ABS Monocytes 1.2 10^3/uL (0.0-1.1); ABS Neutrophils 18.9 10^3/uL (1.5-7.6); ABS Nucleated RBC 0.01 10^3/ul; Hematocrit 23.3 % (38-53); Lymphocyte % 3.5 %; Mean Corpuscular Hemoglobin 29.4 pg (27-33); Mean Corpuscular Hgb Conc 34.2 g/dL (31-36); Mean Corpuscular Volume 85.8 fL (80-97); Mean Platelet Volume 7.7 fL (7.5-11.2); Platelet Count 217 10^3/uL (150-450); Red Blood Count 2.71 10^6/uL (4.06-5.63); Red Cell Distribution Width 17.1 % (12-17); White Blood Count 20.9 10^3/uL (3.6-10.2)
[2022-09-04 06:43] LABS: Calcium 8.7 mg/dL (8.6-10.3); Creatinine, Serum 4.34 mg/dL (0.67-1.17); Magnesium 2.4 mg/dL (1.9-2.7); Phosphorus 5.9 mg/dL (2.5-5.0); Potassium 4.6 mmol/L (3.5-5.0); eGFR CKD-EPI 14.2 (>60)
[2022-09-04] MEDS: Insulin GLARGINE 100 un/ml 10 ml VIAL SUBCUT SCH (08:32)
[2022-09-04] MEDS: Amoxicillin/Clavul 500/125 TAB (Augmentin 500 mg tab) PO SCH (08:33)
[2022-09-04] MEDS: Heparin 5000 UNITS/ML 1 mL VIAL SUBCUT SCH (08:33)
[2022-09-04] MEDS: Sodium Bicarb 650 mg (ANTACID) TAB PO SCH (08:34)
[2022-09-04] MEDS: Aspirin EC 81 mg TAB.EC (enteric coated) PO SCH (08:34)
[2022-09-04 13:00] LABS: Glucose Confirmatory 435 mg/dL (70-100)
[2022-09-04] MEDS ORDERED: Isosorbide Mononit ER 60mg TAB PO SCH (13:00)
[2022-09-04 14:40] VITALS: BP 154/80
[2022-09-05] MEDS ORDERED: Insulin GLARGINE 100 un/ml 10 ml VIAL SUBCUT SCH (09:00)
== END 2022-09-04 16:20 | disposition short-term general hospital (02) | DRG 682 ==
LOC: ED 09:58 → EDHOLD 13:07 → SUATTDRO 13:07 → MED 14:46
PROVIDERS: ADMIT Internal Medicine; ATTEND Internal Medicine

== ENCOUNTER 2022-12-06 12:33 | Inpatient (IN) ==
[2022-12-06 13:14] LABS: INR 1.42 (0.83-1.13)
[2022-12-06 13:19] LABS: Hemoglobin 6.3 g/dL (13.2-16.3); Red Blood Count 2.22 10^6/uL (4.06-5.63)
[2022-12-06 13:20] LABS: Hematocrit 18.4 % (38-53); Mean Corpuscular Hemoglobin 28.3 pg (27-33); Mean Corpuscular Hgb Conc 34.1 g/dL (31-36); Mean Corpuscular Volume 83.1 fL (80-97); Mean Platelet Volume 7.2 fL (7.5-11.2); Platelet Count 496 10^3/uL (150-450); Red Cell Distribution Width 16.1 % (12-17)
[2022-12-06 13:21] LABS: White Blood Count 34.2 10^3/uL (3.6-10.2)
[2022-12-06 13:28] LABS: Albumin/Globulin Ratio 0.8 (1-3); C Reactive Protein 246.06 mg/L (<8.01); Calcium 8.6 mg/dL (8.6-10.3); Creatinine, Serum 4.84 mg/dL (0.67-1.17); Total Bilirubin 0.4 mg/dL (0.2-1.0); eGFR CKD-EPI 12.4 (>60)
[2022-12-06] MEDS ORDERED: Piperacillin/Tazobac 3.375 BAG 3.375 GM/100 ML BAG IV ONE (14:11)
[2022-12-06 14:27] LABS: ABS Basophils 0.5 10^3/uL (0.0-0.1); ABS Eosinophils 0.1 10^3/uL (0.0-0.5); ABS Lymphocytes 1.3 10^3/uL (1.0-4.8); ABS Monocytes 2.5 10^3/uL (0.0-1.1); ABS Neutrophils 29.9 10^3/uL (1.5-7.6); ABS Nucleated RBC 0.01 10^3/ul; Eosinophil % 0.3 %; Lymphocyte % 3.7 %
[2022-12-06] MEDS ORDERED: NS 0.9% 1000 ml BAG 100 ML IV PRN (15:00)
[2022-12-06] MEDS ORDERED: Albumin Human 25% 25 GM/100 ML BTL IV PRN (15:00)
[2022-12-06] MEDS ORDERED: NS 0.9% 1000 ml BAG 200 ML IV PRN (15:00)
[2022-12-06] MEDS ORDERED: Saline NASAL SPRAY 0.65% BTL BOTH NARES PRN (16:01)
[2022-12-06] MEDS ORDERED: Bumetanide IV 0.25 MG/ML 4 ml VIAL (1 mg) IV SLOW PU ONE (16:01)
[2022-12-06 16:32] LABS: Hepatitis B Surface Antigen Nonreactive (Nonreactive)
[2022-12-06 16:50] LABS: Hepatitis B Surface Ab Not Immune (Immune)
[2022-12-06] MEDS ORDERED: Dextrose 50% Syringe 50 ml 25 GM/50 ML SYRINGE IV PUSH PRN (17:44)
[2022-12-06] MEDS: Aspirin EC 81 mg TAB.EC (enteric coated) PO SCH (17:48)
[2022-12-06] MEDS: Heparin 5000 UNITS/ML 1 mL VIAL SUBCUT SCH ×2 (17:48→22:41)
[2022-12-06 18:34] LABS: Hepatitis B Core IgM Nonreactive (Nonreactive)
[2022-12-06] MEDS: DOXYcycline 100 MG in NS 0.9% 250 ml 250 ML IVPB SCH (18:39)
[2022-12-06] MEDS: Collagenase 250 units/gm OINT 1 tube TOPICAL SCH (18:43)
[2022-12-06 18:46] LABS: .Transferrin 124 mg/dL (203-362); Total Iron Binding Capacity 174 mcg/dL (250-450)
[2022-12-06] MEDS: Insulin NPH 100 units/ml SUBCUT SCH (19:38)
[2022-12-06 19:53] LABS: Ferritin 1984.1 ng/mL (24-336)
[2022-12-06 20:31] LABS: % Iron Saturation 84 % (15-55); .Transferrin 127 mg/dL (203-362); Iron 150 ug/dL (50-212); LDH 174 U/L (140-271); Total Iron Binding Capacity 178 mcg/dL (250-450); Unsaturated Iron Binding 28 ug/dL
[2022-12-06] MEDS: Zinc Oxide 16% PASTE (Butt Paste) 30 gm TUBE TOPICAL SCH (20:58)
[2022-12-06 22:14] LABS: Hematocrit 21.4 % (38-53); Hemoglobin 7.3 g/dL (13.2-16.3)
[2022-12-07] MEDS: DOXYcycline 100 MG in NS 0.9% 250 ml 250 ML IVPB SCH ×2 (06:04→17:56)
[2022-12-07] MEDS: Heparin 5000 UNITS/ML 1 mL VIAL SUBCUT SCH ×3 (06:05→21:12)
[2022-12-07 06:51] LABS: Hematocrit 21.1 % (38-53); Hemoglobin 7.2 g/dL (13.2-16.3); Mean Corpuscular Volume 82.4 fL (80-97); Mean Platelet Volume 7.3 fL (7.5-11.2); Platelet Count 472 10^3/uL (150-450); Red Blood Count 2.56 10^6/uL (4.06-5.63); Red Cell Distribution Width 15.7 % (12-17); White Blood Count 23.1 10^3/uL (3.6-10.2)
[2022-12-07 06:53] LABS: INR 1.36 (0.83-1.13)
[2022-12-07 07:04] LABS: ABS Basophils 0.1 10^3/uL (0.0-0.1); ABS Eosinophils 0.1 10^3/uL (0.0-0.5); ABS Lymphocytes 1.2 10^3/uL (1.0-4.8); ABS Monocytes 2.3 10^3/uL (0.0-1.1); ABS Neutrophils 19.3 10^3/uL (1.5-7.6); Eosinophil % 0.6 %; Lymphocyte % 5.3 %
[2022-12-07 07:08] LABS: Calcium 8.3 mg/dL (8.6-10.3); Creatinine, Serum 5.37 mg/dL (0.67-1.17); Magnesium 1.8 mg/dL (1.9-2.7); Potassium 3.9 mmol/L (3.5-5.0)
[2022-12-07] MEDS: Collagenase 250 units/gm OINT 1 tube TOPICAL SCH (08:32)
[2022-12-07] MEDS: Zinc Oxide 16% PASTE (Butt Paste) 30 gm TUBE TOPICAL SCH ×2 (08:33→19:57)
[2022-12-07] MEDS: Insulin NPH 100 units/ml SUBCUT SCH ×3 (09:43→20:09)
[2022-12-07] MEDS: Heparin 1,000 UNIT/ML 10 ml (10,000 UNITS) CATHLAB/DIALYSIS DIALYSIS PRN ×4 (12:10→16:05)
[2022-12-07] MEDS: Aspirin EC 81 mg TAB.EC (enteric coated) PO SCH (16:31)
[2022-12-08] MEDS: DOXYcycline 100 MG in NS 0.9% 250 ml 250 ML IVPB SCH ×2 (05:07→18:39)
[2022-12-08] MEDS: Heparin 5000 UNITS/ML 1 mL VIAL SUBCUT SCH ×3 (05:11→21:28)
[2022-12-08] MEDS: Insulin NPH 100 units/ml SUBCUT SCH ×2 (08:52→21:29)
[2022-12-08] MEDS: Aspirin EC 81 mg TAB.EC (enteric coated) PO SCH (08:55)
[2022-12-08 09:11] LABS: Hematocrit 19.8 % (38-53); Hemoglobin 6.8 g/dL (13.2-16.3); Mean Corpuscular Hemoglobin 28.6 pg (27-33); Mean Corpuscular Hgb Conc 34.5 g/dL (31-36); Mean Corpuscular Volume 82.9 fL (80-97); Platelet Count 444 10^3/uL (150-450); Red Blood Count 2.39 10^6/uL (4.06-5.63); Red Cell Distribution Width 16.1 % (12-17); White Blood Count 20.6 10^3/uL (3.6-10.2)
[2022-12-08 09:35] LABS: Calcium 8.3 mg/dL (8.6-10.3); Creatinine, Serum 3.39 mg/dL (0.67-1.17); Potassium 3.5 mmol/L (3.5-5.0); eGFR CKD-EPI 19.1 (>60)
[2022-12-08] MEDS: Collagenase 250 units/gm OINT 1 tube TOPICAL SCH (11:26)
[2022-12-08] MEDS: Zinc Oxide 16% PASTE (Butt Paste) 30 gm TUBE TOPICAL SCH ×2 (11:27→21:29)
[2022-12-08] MEDS ORDERED: NS 0.9% 1000 ml BAG 100 ML IV PRN (13:05)
[2022-12-08] MEDS ORDERED: Albumin Human 25% 25 GM/100 ML BTL IV PRN (13:05)
[2022-12-08] MEDS ORDERED: NS 0.9% 1000 ml BAG 200 ML IV PRN (13:05)
[2022-12-08 23:22] LABS: Hematocrit 23.4 % (38-53); Hemoglobin 7.9 g/dL (13.2-16.3); Mean Corpuscular Hemoglobin 28.2 pg (27-33); Mean Corpuscular Hgb Conc 33.9 g/dL (31-36); Mean Corpuscular Volume 83.1 fL (80-97); Mean Platelet Volume 7.2 fL (7.5-11.2); Platelet Count 473 10^3/uL (150-450); Red Blood Count 2.81 10^6/uL (4.06-5.63); Red Cell Distribution Width 15.7 % (12-17); White Blood Count 24.2 10^3/uL (3.6-10.2)
[2022-12-09 00:29] LABS: ABS Basophils 0.1 10^3/uL (0.0-0.1); ABS Eosinophils 0.2 10^3/uL (0.0-0.5); ABS Lymphocytes 1.5 10^3/uL (1.0-4.8); ABS Monocytes 2.6 10^3/uL (0.0-1.1); ABS Neutrophils 19.7 10^3/uL (1.5-7.6); ABS Nucleated RBC 0.01 10^3/ul; Eosinophil % 0.7 %; Lymphocyte % 6.4 %; Nucleated Red Blood Cells % 0.1 /100 WBC (0.0-0.4); RBC Morphology Normal (Normal)
[2022-12-09 03:35] LABS: Urine Appearance Turbid; Urine Bilirubin Negative (Negative); Urine Blood Negative (Negative); Urine Color Amber; Urine Glucose 1+(50 mg/dL) (Negative); Urine Ketones Negative (Negative); Urine Nitrite Negative (Negative); Urine Protein 2+(100 mg/dL) (Negative); Urine Specific Gravity 1.016 (1.002-1.030); Urine Urobilinogen Negative (Negative)
[2022-12-09 03:49] LABS: Urine Amorphous Crystals Present (Absent); Urine Bacteria 1+ (Absent); Urine Red Blood Cell 3+(>10/hpf) (Absent); Urine Renal Epithelial Cells Present (Absent); Urine Squamous Epithelial Cell Present (Absent); Urine White Blood Cell 3+(>20/hpf) (Absent); Urine Yeast Present (Absent)
[2022-12-09] MEDS: Heparin 5000 UNITS/ML 1 mL VIAL SUBCUT SCH ×2 (05:16→19:05)
[2022-12-09] MEDS: DOXYcycline 100 MG in NS 0.9% 250 ml 250 ML IVPB SCH ×2 (05:17→20:23)
[2022-12-09] MEDS ORDERED: Bumetanide IV 0.25 MG/ML 4 ml VIAL (1 mg) IV SLOW PU ONE (08:18)
[2022-12-09 08:19] LABS: Hematocrit 22.5 % (38-53); Hemoglobin 7.8 g/dL (13.2-16.3); Mean Corpuscular Hemoglobin 28.7 pg (27-33); Mean Corpuscular Hgb Conc 34.7 g/dL (31-36); Mean Corpuscular Volume 82.7 fL (80-97); Platelet Count 468 10^3/uL (150-450); Red Blood Count 2.73 10^6/uL (4.06-5.63); Red Cell Distribution Width 15.7 % (12-17)
[2022-12-09 08:38] LABS: Calcium 8.3 mg/dL (8.6-10.3); Creatinine, Serum 4.14 mg/dL (0.67-1.17); Potassium 3.7 mmol/L (3.5-5.0)
[2022-12-09] MEDS: Aspirin EC 81 mg TAB.EC (enteric coated) PO SCH (08:54)
[2022-12-09] MEDS: Insulin NPH 100 units/ml SUBCUT SCH ×2 (08:56→22:07)
[2022-12-09] MEDS: Collagenase 250 units/gm OINT 1 tube TOPICAL SCH (10:32)
[2022-12-09] MEDS: Zinc Oxide 16% PASTE (Butt Paste) 30 gm TUBE TOPICAL SCH ×3 (10:32→21:49)
[2022-12-09] MEDS: Heparin 1,000 UNIT/ML 10 ml (10,000 UNITS) CATHLAB/DIALYSIS DIALYSIS PRN ×4 (14:06→18:09)
[2022-12-10] MEDS: Heparin 5000 UNITS/ML 1 mL VIAL SUBCUT SCH ×3 (02:53→17:55)
[2022-12-10] MEDS: DOXYcycline 100 MG in NS 0.9% 250 ml 250 ML IVPB SCH ×2 (05:24→17:52)
[2022-12-10 06:09] LABS: Hemoglobin 7.5 g/dL (13.2-16.3); Mean Corpuscular Hemoglobin 28.5 pg (27-33); Mean Corpuscular Hgb Conc 34.2 g/dL (31-36); Mean Corpuscular Volume 83.3 fL (80-97); Mean Platelet Volume 7.4 fL (7.5-11.2); Platelet Count 464 10^3/uL (150-450); Red Blood Count 2.65 10^6/uL (4.06-5.63); Red Cell Distribution Width 15.1 % (12-17); White Blood Count 20.7 10^3/uL (3.6-10.2)
[2022-12-10 06:18] LABS: Calcium 8.4 mg/dL (8.6-10.3); Creatinine, Serum 2.58 mg/dL (0.67-1.17); Potassium 3.7 mmol/L (3.5-5.0); eGFR CKD-EPI 26.5 (>60)
[2022-12-10 07:42] LABS: Toxic Granulation 1+
[2022-12-10 07:46] LABS: ABS Basophils 0.1 10^3/uL (0.0-0.1); ABS Eosinophils 0.2 10^3/uL (0.0-0.5); ABS Lymphocytes 1.7 10^3/uL (1.0-4.8); ABS Monocytes 2.9 10^3/uL (0.0-1.1); ABS Neutrophils 15.9 10^3/uL (1.5-7.6); ABS Nucleated RBC 0.02 10^3/ul; Eosinophil % 0.8 %; Lymphocyte % 8.2 %; Nucleated Red Blood Cells % 0.1 /100 WBC (0.0-0.4); RBC Morphology Normal (Normal)
[2022-12-10] MEDS: Insulin NPH 100 units/ml SUBCUT SCH ×3 (08:36→21:45)
[2022-12-10] MEDS: Aspirin EC 81 mg TAB.EC (enteric coated) PO SCH (08:37)
[2022-12-10] MEDS: Collagenase 250 units/gm OINT 1 tube TOPICAL SCH (11:27)
[2022-12-10] MEDS: Zinc Oxide 16% PASTE (Butt Paste) 30 gm TUBE TOPICAL SCH ×2 (11:27→21:43)
[2022-12-10] MEDS ORDERED: Bumetanide IV 0.25 MG/ML 4 ml VIAL (1 mg) IV SLOW PU ONE (12:10)
[2022-12-11] MEDS: Heparin 5000 UNITS/ML 1 mL VIAL SUBCUT SCH ×2 (02:28→12:30)
[2022-12-11] MEDS: DOXYcycline 100 MG in NS 0.9% 250 ml 250 ML IVPB SCH (04:58)
[2022-12-11] MEDS: Heparin 1,000 UNIT/ML 10 ml (10,000 UNITS) CATHLAB/DIALYSIS DIALYSIS PRN ×4 (07:57→11:55)
[2022-12-11] MEDS ORDERED: Miconazole 2% Top Powder BTL TOPICAL SCH (09:00)
[2022-12-11] MEDS: Insulin NPH 100 units/ml SUBCUT SCH (12:28)
[2022-12-11] MEDS: Aspirin EC 81 mg TAB.EC (enteric coated) PO SCH (12:28)
[2022-12-11] MEDS: Collagenase 250 units/gm OINT 1 tube TOPICAL SCH (12:30)
[2022-12-11 13:23] VITALS: BP 115/65
[2022-12-11] MEDS: Zinc Oxide 16% PASTE (Butt Paste) 30 gm TUBE TOPICAL SCH (13:53)
== END 2022-12-11 14:30 | disposition home or self-care (01) | DRG 871 ==
LOC: ED 12:33 → MED 15:55 → EDHOLD 15:55 → MED 19:57
PROVIDERS: ADMIT Internal Medicine; ATTEND Internal Medicine

== ENCOUNTER 2023-02-10 17:11 | Inpatient (IN) ==
[2023-02-10] MEDS ORDERED: Piperacillin/Tazobac 3.375 BAG 3.375 GM/100 ML BAG IV ONE (17:24)
[2023-02-10 17:50] LABS: Hematocrit 29.3 % (38-53); Hemoglobin 9.6 g/dL (13.2-16.3); Mean Corpuscular Hemoglobin 29.9 pg (27-33); Mean Corpuscular Hgb Conc 32.9 g/dL (31-36); Mean Corpuscular Volume 91.1 fL (80-97); Mean Platelet Volume 7.3 fL (7.5-11.2); Platelet Count 334 10^3/uL (150-450); Red Blood Count 3.22 10^6/uL (4.06-5.63); White Blood Count 30.9 10^3/uL (3.6-10.2)
[2023-02-10] MEDS ORDERED: DOXYcycline 100 MG in NS 0.9% 250 ml 250 ML IVPB ONE (18:00)
[2023-02-10 18:01] LABS: Activated Partial Thrombo Time 24.9 seconds (26.0-38.0); INR 1.28 (0.83-1.13)
[2023-02-10] MEDS ORDERED: Lactated Ringers 1000 ml BAG 1,000 ML IV ONE (18:01)
[2023-02-10] MEDS ORDERED: Acetaminophen IV 1 GM/100ML 1,000 MG/100 ML BAG IV ONE (18:02)
[2023-02-10 18:16] LABS: High Sens Troponin Baseline 40 pg/mL (<20)
[2023-02-10 18:34] LABS: ABS Basophils 0.1 10^3/uL (0.0-0.1); ABS Eosinophils 0.1 10^3/uL (0.0-0.5); ABS Lymphocytes 0.7 10^3/uL (1.0-4.8); ABS Monocytes 2.2 10^3/uL (0.0-1.1); ABS Neutrophils 27.9 10^3/uL (1.5-7.6); ABS Nucleated RBC 0.02 10^3/ul; Eosinophil % 0.2 %; Lymphocyte % 2.1 %
[2023-02-10 19:22] LABS: High Sensitivity Troponin 1 Hr 34 pg/mL (<20)
[2023-02-10 19:27] LABS: ALT 28 U/L (7-52); Albumin 2.6 g/dL (3.2-5.2); Albumin/Globulin Ratio 0.6 (1-3); Alkaline Phosphatase 183 U/L (35-149); Blood Urea Nitrogen 46 mg/dL (6-24); C Reactive Protein 214.59 mg/L (<8.01); CO2 Carbon Dioxide 20 mmol/L (22-32); Calcium 8.6 mg/dL (8.6-10.3); Chloride 91 mmol/L (101-111); Creatinine, Serum 3.14 mg/dL (0.67-1.17); Globulin 4.4 g/dL (2-4); Glucose 176 mg/dL (70-100); Sodium 127 mmol/L (135-145); Total Bilirubin 0.4 mg/dL (0.2-1.0); eGFR CKD-EPI 20.9 (>60)
[2023-02-10 19:28] LABS: Anion Gap 16 mmol/L (2-16)
[2023-02-10 21:02] LABS: Urine Appearance Turbid; Urine Bilirubin Negative (Negative); Urine Blood Negative (Negative); Urine Color Yellow; Urine Glucose Negative (Negative); Urine Ketones Negative (Negative); Urine Nitrite Negative (Negative); Urine Protein 2+(100 mg/dL) (Negative); Urine Urobilinogen Negative (Negative)
[2023-02-10 21:12] LABS: Urine Bacteria 1+ (Absent); Urine Red Blood Cell Trace(0-2/hpf) (Absent); Urine Squamous Epithelial Cell Present (Absent); Urine White Blood Cell 3+(>20/hpf) (Absent)
[2023-02-10 21:38] LABS: Potassium Redraw 4.2 mmol/L (3.5-5.0)
[2023-02-10] MEDS ORDERED: NS 0.9% 1000 ml BAG 200 ML IV PRN (22:27)
[2023-02-10] MEDS ORDERED: Albumin Human 25% 25 GM/100 ML BTL IV PRN (22:27)
[2023-02-10] MEDS ORDERED: NS 0.9% 1000 ml BAG 100 ML IV PRN (22:27)
[2023-02-10] MEDS ORDERED: PIPERACILLIN FOLLOW UP SCH (22:30)
[2023-02-10] MEDS ORDERED: TAZOBACTAM FOLLOW UP SCH (22:30)
[2023-02-10] MEDS ORDERED: Cefepime ADVAN 1 GM in NS 0.9% 50 ML 50 ML IVPB SCH (23:00)
[2023-02-10] MEDS ORDERED: Cefepime 1 GM in Dextrose 1 GM/50 ML BAG IV SCH (23:00)
[2023-02-11] MEDS: Morphine 2 MG/ML SYRINGE IV PRN ×3 (00:08→21:29)
[2023-02-11] MEDS: Linezolid 600 MG IVPREMIX(*) 600 MG/300 ML BAG IVPB SCH ×2 (00:49→11:37)
[2023-02-11 01:05] LABS: INR 1.45 (0.83-1.13)
[2023-02-11 02:14] LABS: Hepatitis B Surface Antigen Nonreactive (Nonreactive)
[2023-02-11 02:31] LABS: Hepatitis B Surface Ab Not Immune (Immune)
[2023-02-11] MEDS ORDERED: Dextrose 50% Syringe 50 ml 25 GM/50 ML SYRINGE IV PUSH PRN (06:32)
[2023-02-11 06:52] LABS: Hematocrit 24.2 % (38-53); Hemoglobin 7.9 g/dL (13.2-16.3); Mean Corpuscular Hemoglobin 30.4 pg (27-33); Mean Corpuscular Hgb Conc 32.8 g/dL (31-36); Mean Corpuscular Volume 92.7 fL (80-97); Mean Platelet Volume 6.6 fL (7.5-11.2); Platelet Count 289 10^3/uL (150-450); Red Blood Count 2.61 10^6/uL (4.06-5.63); Red Cell Distribution Width 18.5 % (12-17); White Blood Count 29.9 10^3/uL (3.6-10.2)
[2023-02-11 07:28] LABS: Albumin 2.2 g/dL (3.2-5.2); Albumin/Globulin Ratio 0.6 (1-3); Calcium 7.8 mg/dL (8.6-10.3); Creatinine, Serum 3.19 mg/dL (0.67-1.17); Globulin 3.6 g/dL (2-4); Magnesium 1.4 mg/dL (1.9-2.7); Total Bilirubin 0.3 mg/dL (0.2-1.0); Total Protein 5.8 g/dL (6.4-8.9); eGFR CKD-EPI 20.5 (>60)
[2023-02-11 07:34] LABS: ABS Basophils 0.2 10^3/uL (0.0-0.1); ABS Lymphocytes 1.2 10^3/uL (1.0-4.8); ABS Monocytes 2.6 10^3/uL (0.0-1.1); ABS Neutrophils 25.9 10^3/uL (1.5-7.6); Lymphocyte % 3.9 %
[2023-02-11] MEDS: Aspirin EC 81 mg TAB.EC (enteric coated) PO SCH (08:15)
[2023-02-11] MEDS: Heparin 5000 UNITS/ML 1 mL VIAL SUBCUT SCH ×2 (10:18→21:27)
[2023-02-11] MEDS ORDERED: Iodixanol (CONTRAST) 320 MG/ML 100 ML SDV IV ONE (11:50)
[2023-02-11] MEDS ORDERED: Meropenem 2 GM in NS 0.9% 100 ml BAG 100 ML IVPB SCH (14:00)
[2023-02-11] MEDS: Heparin 1,000 UNIT/ML 10 ml (10,000 UNITS) CATHLAB/DIALYSIS DIALYSIS PRN ×4 (14:12→18:00)
[2023-02-11] MEDS ORDERED: Meropenem 1 GM PREMIX 1 GM/50 ML BAG IV SCH (15:30)
[2023-02-11] MEDS: Meropenem 1 GM PREMIX 1 GM/50 ML BAG IV SCH (20:28)
[2023-02-12 05:50] LABS: Hematocrit 24.3 % (38-53); Hemoglobin 8.1 g/dL (13.2-16.3); Mean Corpuscular Hemoglobin 30.4 pg (27-33); Mean Corpuscular Hgb Conc 33.3 g/dL (31-36); Mean Corpuscular Volume 91.2 fL (80-97); Platelet Count 308 10^3/uL (150-450); Red Blood Count 2.66 10^6/uL (4.06-5.63); Red Cell Distribution Width 18.5 % (12-17); White Blood Count 18.7 10^3/uL (3.6-10.2)
[2023-02-12 06:15] LABS: Calcium 8.3 mg/dL (8.6-10.3); Creatinine, Serum 2.34 mg/dL (0.67-1.17); Magnesium 1.4 mg/dL (1.9-2.7); Potassium 3.3 mmol/L (3.5-5.0); eGFR CKD-EPI 29.7 (>60)
[2023-02-12 06:23] LABS: ABS Basophils 0.2 10^3/uL (0.0-0.1); ABS Lymphocytes 1.2 10^3/uL (1.0-4.8); ABS Monocytes 2.2 10^3/uL (0.0-1.1); ABS Neutrophils 15.2 10^3/uL (1.5-7.6); Anisocytosis 1+; Eosinophil % 0.2 %; Lymphocyte % 6.5 %
[2023-02-12] MEDS: Aspirin EC 81 mg TAB.EC (enteric coated) PO SCH (10:10)
[2023-02-12] MEDS: Heparin 5000 UNITS/ML 1 mL VIAL SUBCUT SCH ×2 (10:10→21:54)
[2023-02-12] MEDS: Insulin NPH 100 units/ml SUBCUT SCH (16:07)
[2023-02-12] MEDS: Meropenem 1 GM PREMIX 1 GM/50 ML BAG IV SCH (17:56)
[2023-02-13] MEDS: Heparin 1,000 UNIT/ML 10 ml (10,000 UNITS) CATHLAB/DIALYSIS DIALYSIS PRN ×3 (07:22→10:42)
[2023-02-13 08:23] LABS: Hemoglobin 8.1 g/dL (13.2-16.3); Mean Corpuscular Hemoglobin 29.8 pg (27-33); Mean Corpuscular Hgb Conc 32.4 g/dL (31-36); Mean Corpuscular Volume 92.1 fL (80-97); Mean Platelet Volume 6.9 fL (7.5-11.2); Platelet Count 300 10^3/uL (150-450); Red Blood Count 2.71 10^6/uL (4.06-5.63); Red Cell Distribution Width 18.1 % (12-17); White Blood Count 18.4 10^3/uL (3.6-10.2)
[2023-02-13 08:45] LABS: Calcium 8.1 mg/dL (8.6-10.3); Creatinine, Serum 3.27 mg/dL (0.67-1.17); Potassium 3.5 mmol/L (3.5-5.0); eGFR CKD-EPI 19.9 (>60)
[2023-02-13] MEDS ORDERED: Magnesium Sulfate 2 gm BAG 2 GM/50 ML BAG IVPB ONE (08:47)
[2023-02-13 09:37] LABS: ABS Basophils 0.2 10^3/uL (0.0-0.1); ABS Eosinophils 0.1 10^3/uL (0.0-0.5); ABS Lymphocytes 1.6 10^3/uL (1.0-4.8); ABS Monocytes 1.6 10^3/uL (0.0-1.1); ABS Neutrophils 15.1 10^3/uL (1.5-7.6); Eosinophil % 0.3 %; Lymphocyte % 8.4 %; RBC Morphology Normal (Normal)
[2023-02-13] MEDS: Insulin NPH 100 units/ml SUBCUT SCH ×2 (10:39→16:14)
[2023-02-13] MEDS ORDERED: DAPTOmycin SDV 500 MG in NS 0.9% 50 ML 50 ML IVPB SCH (11:00)
[2023-02-13] MEDS: Heparin 5000 UNITS/ML 1 mL VIAL SUBCUT SCH ×2 (12:56→20:45)
[2023-02-13] MEDS: Aspirin EC 81 mg TAB.EC (enteric coated) PO SCH (12:57)
[2023-02-13] MEDS: Morphine 2 MG/ML SYRINGE IV PRN ×2 (17:16→21:17)
[2023-02-13] MEDS: Meropenem 1 GM PREMIX 1 GM/50 ML BAG IV SCH (17:17)
[2023-02-14] MEDS: Morphine 2 MG/ML SYRINGE IV PRN ×3 (04:26→19:51)
[2023-02-14 06:51] LABS: Hematocrit 26.4 % (38-53); Hemoglobin 8.5 g/dL (13.2-16.3); Mean Corpuscular Hgb Conc 32.4 g/dL (31-36); Mean Corpuscular Volume 92.6 fL (80-97); Platelet Count 298 10^3/uL (150-450); Red Blood Count 2.85 10^6/uL (4.06-5.63); Red Cell Distribution Width 18.5 % (12-17); White Blood Count 21.5 10^3/uL (3.6-10.2)
[2023-02-14 07:10] LABS: Calcium 8.2 mg/dL (8.6-10.3); Creatinine, Serum 2.89 mg/dL (0.67-1.17); Potassium 3.5 mmol/L (3.5-5.0); eGFR CKD-EPI 23.1 (>60)
[2023-02-14 07:27] LABS: ABS Basophils 0.2 10^3/uL (0.0-0.1); ABS Eosinophils 0.1 10^3/uL (0.0-0.5); ABS Monocytes 1.9 10^3/uL (0.0-1.1); ABS Neutrophils 17.3 10^3/uL (1.5-7.6); ABS Nucleated RBC 0.02 10^3/ul; Eosinophil % 0.4 %; Lymphocyte % 9.4 %; Nucleated Red Blood Cells % 0.1 %/100WBC (0.0-0.8); RBC Morphology Normal (Normal)
[2023-02-14] MEDS: Insulin NPH 100 units/ml SUBCUT SCH ×2 (09:46→16:54)
[2023-02-14] MEDS: Heparin 5000 UNITS/ML 1 mL VIAL SUBCUT SCH ×2 (09:49→20:21)
[2023-02-14] MEDS: Aspirin EC 81 mg TAB.EC (enteric coated) PO SCH (09:49)
[2023-02-14] MEDS ORDERED: Bupivacaine 0.25% SDV 30 ML ONE (13:07)
[2023-02-14] MEDS ORDERED: Bacitracin OINTMENT TUBE ONE (13:07)
[2023-02-14] MEDS ORDERED: Propofol 10 MG/ML 20 ML BTL ONE (14:43)
[2023-02-14] MEDS ORDERED: Lidocaine 2% PF 5 ML VIAL ONE (14:43)
[2023-02-14] MEDS ORDERED: Ondansetron 4 mg VIAL 2 MG/ML 2 ml VIAL ONE (14:43)
[2023-02-14] MEDS ORDERED: Dexamethasone IV 4 MG/ML VIAL 1 ml VIAL ONE (14:43)
[2023-02-14] MEDS ORDERED: Midazolam 2 mg/2 ml VIAL 1 mg/ml 2 ml VIAL (2 mg) ONE (14:43)
[2023-02-14] MEDS ORDERED: Rocuronium 50 mg VIAL 10 mg/ml 5 ml VIAL (50 mg) ONE (14:43)
[2023-02-14] MEDS ORDERED: fentaNYL 250 mcg/5 ml 50 MCG/ML 5 ml VIAL (250 MCG) ONE (14:43)
[2023-02-14] MEDS ORDERED: Phenylephrine 40 mcg/mL 10mL (400mcg) SYRINGE ONE (16:08)
[2023-02-14] MEDS ORDERED: Acetaminophen IV 1 GM/100ML 1,000 MG/100 ML BAG IV ONE (16:31)
[2023-02-14] MEDS ORDERED: fentaNYL 100 mcg/2 ml 50 MCG/ML VIAL IV PRN (16:41)
[2023-02-14] MEDS ORDERED: Naloxone 0.4 mg VIAL 0.4 mg/ml 1 ml VIAL IV PRN (16:41)
[2023-02-14] MEDS: Meropenem 1 GM PREMIX 1 GM/50 ML BAG IV SCH (19:51)
[2023-02-15] MEDS: Aspirin EC 81 mg TAB.EC (enteric coated) PO SCH (08:44)
[2023-02-15] MEDS: Heparin 5000 UNITS/ML 1 mL VIAL SUBCUT SCH ×2 (08:44→21:13)
[2023-02-15] MEDS: Insulin NPH 100 units/ml SUBCUT SCH ×2 (08:45→16:18)
[2023-02-15] MEDS: Morphine 2 MG/ML SYRINGE IV PRN ×2 (08:48→21:11)
[2023-02-15] MEDS: Heparin 1,000 UNIT/ML 10 ml (10,000 UNITS) CATHLAB/DIALYSIS DIALYSIS PRN ×2 (13:40→14:26)
[2023-02-15] MEDS ORDERED: NS 0.9% 1000 ml BAG 1,000 ML IV ONE (14:28)
[2023-02-15] MEDS ORDERED: Ondansetron 4 mg VIAL 2 MG/ML 2 ml VIAL ONE (14:29)
[2023-02-15] MEDS ORDERED: DAPTOmycin SDV 500 MG in NS 0.9% 50 ML 50 ML IVPB SCH (15:00)
[2023-02-15] MEDS ORDERED: Insulin NPH 100 units/ml SUBCUT SCH (15:00)
[2023-02-15] MEDS ORDERED: Ondansetron 4 mg VIAL 2 MG/ML 2 ml VIAL IV PRN (15:23)
[2023-02-15 15:26] LABS: Albumin 2.4 g/dL (3.2-5.2); Albumin/Globulin Ratio 0.6 (1-3); C Reactive Protein 182.62 mg/L (<8.01); Calcium 8.4 mg/dL (8.6-10.3); Creatinine, Serum 3.76 mg/dL (0.67-1.17); Globulin 4.1 g/dL (2-4); Potassium 3.6 mmol/L (3.5-5.0); Total Bilirubin 0.3 mg/dL (0.2-1.0); Total Protein 6.5 g/dL (6.4-8.9); eGFR CKD-EPI 16.8 (>60)
[2023-02-15] MEDS: Meropenem 1 GM PREMIX 1 GM/50 ML BAG IV SCH (18:34)
[2023-02-15] MEDS: DAPTOmycin SDV 500 MG in NS 0.9% 50 ML 50 ML IVPB SCH (18:47)
[2023-02-16 04:18] LABS: Hematocrit 22.8 % (38-53); Hemoglobin 7.3 g/dL (13.2-16.3); Mean Corpuscular Hemoglobin 29.5 pg (27-33); Mean Corpuscular Volume 92.2 fL (80-97); Mean Platelet Volume 6.8 fL (7.5-11.2); Platelet Count 291 10^3/uL (150-450); Red Blood Count 2.47 10^6/uL (4.06-5.63); Red Cell Distribution Width 18.2 % (12-17); White Blood Count 34.2 10^3/uL (3.6-10.2)
[2023-02-16 04:34] LABS: Calcium 7.9 mg/dL (8.6-10.3); Creatinine, Serum 4.28 mg/dL (0.67-1.17); Potassium 3.8 mmol/L (3.5-5.0); eGFR CKD-EPI 14.4 (>60)
[2023-02-16 04:36] LABS: ABS Basophils 0.4 10^3/uL (0.0-0.1); ABS Eosinophils 0.2 10^3/uL (0.0-0.5); ABS Lymphocytes 2.5 10^3/uL (1.0-4.8); ABS Monocytes 2.4 10^3/uL (0.0-1.1); ABS Neutrophils 28.8 10^3/uL (1.5-7.6); Anisocytosis 1+; Eosinophil % 0.5 %; Lymphocyte % 7.3 %
[2023-02-16] MEDS: Aspirin EC 81 mg TAB.EC (enteric coated) PO SCH (08:41)
[2023-02-16] MEDS: Heparin 5000 UNITS/ML 1 mL VIAL SUBCUT SCH ×2 (08:41→20:37)
[2023-02-16] MEDS ORDERED: NS 0.9% 1000 ml BAG 200 ML IV PRN (14:04)
[2023-02-16] MEDS ORDERED: NS 0.9% 1000 ml BAG 100 ML IV PRN (14:04)
[2023-02-16] MEDS ORDERED: Bismuth Subsalicylate (BTL) 525 MG/30 ML (BULK BTL) PO ONE (14:23)
[2023-02-16] MEDS ORDERED: Bismuth Subsalicylate (BTL) 525 MG/30 ML (BULK BTL) PO PRN (17:13)
[2023-02-16] MEDS: Meropenem 1 GM PREMIX 1 GM/50 ML BAG IV SCH (17:37)
[2023-02-16] MEDS: Insulin GLARGINE 100 un/ml 10 ml VIAL SUBCUT SCH (20:35)
[2023-02-17 04:45] LABS: Hematocrit 23.3 % (38-53); Hemoglobin 7.5 g/dL (13.2-16.3); Mean Corpuscular Hemoglobin 29.6 pg (27-33); Mean Corpuscular Hgb Conc 32.2 g/dL (31-36); Mean Platelet Volume 6.7 fL (7.5-11.2); Platelet Count 278 10^3/uL (150-450); Red Blood Count 2.53 10^6/uL (4.06-5.63); Red Cell Distribution Width 17.6 % (12-17); White Blood Count 28.8 10^3/uL (3.6-10.2)
[2023-02-17 05:01] LABS: Calcium 8.3 mg/dL (8.6-10.3); Creatinine, Serum 4.7 mg/dL (0.67-1.17); Phosphorus 3.9 mg/dL (2.5-5.0); Potassium 4.1 mmol/L (3.5-5.0); eGFR CKD-EPI 12.9 (>60)
[2023-02-17] MEDS: Heparin 1,000 UNIT/ML 10 ml (10,000 UNITS) CATHLAB/DIALYSIS DIALYSIS PRN ×4 (08:00→12:00)
[2023-02-17] MEDS: Heparin 5000 UNITS/ML 1 mL VIAL SUBCUT SCH ×2 (08:21→22:22)
[2023-02-17] MEDS: Albumin Human 25% 25 GM/100 ML BTL IV PRN ×3 (08:50→11:02)
[2023-02-17] MEDS: Aspirin EC 81 mg TAB.EC (enteric coated) PO SCH (12:01)
[2023-02-17] MEDS: Morphine 2 MG/ML SYRINGE IV PRN (16:21)
[2023-02-17] MEDS: DAPTOmycin SDV 500 MG in NS 0.9% 50 ML 50 ML IVPB SCH (17:38)
[2023-02-17] MEDS: Meropenem 1 GM PREMIX 1 GM/50 ML BAG IV SCH (19:11)
[2023-02-17] MEDS ORDERED: Insulin GLARGINE 100 un/ml 10 ml VIAL SUBCUT SCH (23:56)
[2023-02-18] MEDS: Insulin GLARGINE 100 un/ml 10 ml VIAL SUBCUT SCH (02:20)
[2023-02-18 04:20] LABS: Hematocrit 21.1 % (38-53); Hemoglobin 6.8 g/dL (13.2-16.3); Mean Corpuscular Hemoglobin 30.4 pg (27-33); Mean Corpuscular Hgb Conc 32.2 g/dL (31-36); Mean Corpuscular Volume 94.6 fL (80-97); Mean Platelet Volume 6.6 fL (7.5-11.2); Platelet Count 286 10^3/uL (150-450); Red Blood Count 2.23 10^6/uL (4.06-5.63); Red Cell Distribution Width 17.8 % (12-17); White Blood Count 26.7 10^3/uL (3.6-10.2)
[2023-02-18 04:41] LABS: Calcium 8.2 mg/dL (8.6-10.3); Creatinine, Serum 3.07 mg/dL (0.67-1.17); Magnesium 1.7 mg/dL (1.9-2.7); Phosphorus 2.6 mg/dL (2.5-5.0); Potassium 3.7 mmol/L (3.5-5.0); eGFR CKD-EPI 21.5 (>60)
[2023-02-18] MEDS: Heparin 5000 UNITS/ML 1 mL VIAL SUBCUT SCH ×2 (09:10→20:00)
[2023-02-18] MEDS: Aspirin EC 81 mg TAB.EC (enteric coated) PO SCH (09:13)
[2023-02-18] MEDS: Heparin 1,000 UNIT/ML 10 ml (10,000 UNITS) CATHLAB/DIALYSIS DIALYSIS PRN ×4 (10:00→13:20)
[2023-02-18] MEDS: Oxymetazoline 0.05% NASAL SPR 15 ML BTL PRN (12:44)
[2023-02-18] MEDS: Insulin NPH 100 units/ml SUBCUT SCH (15:47)
[2023-02-18] MEDS: Meropenem 1 GM PREMIX 1 GM/50 ML BAG IV SCH (20:00)
[2023-02-18] MEDS ORDERED: Insulin GLARGINE 100 un/ml 10 ml VIAL SUBCUT SCH (21:00)
[2023-02-19] MEDS ORDERED: Morphine 2 MG/ML SYRINGE IV ONE (01:16)
[2023-02-19] MEDS: Oxymetazoline 0.05% NASAL SPR 15 ML BTL PRN ×2 (02:28→20:02)
[2023-02-19 08:22] LABS: Hematocrit 31.3 % (38-53); Mean Corpuscular Hemoglobin 29.3 pg (27-33); Mean Corpuscular Hgb Conc 32.1 g/dL (31-36); Mean Corpuscular Volume 91.2 fL (80-97); Mean Platelet Volume 6.6 fL (7.5-11.2); Platelet Count 390 10^3/uL (150-450); Red Blood Count 3.43 10^6/uL (4.06-5.63); Red Cell Distribution Width 18.5 % (12-17); White Blood Count 33.2 10^3/uL (3.6-10.2)
[2023-02-19 09:13] LABS: ABS Basophils 0.2 10^3/uL (0.0-0.1); ABS Eosinophils 0.2 10^3/uL (0.0-0.5); ABS Lymphocytes 2.7 10^3/uL (1.0-4.8); ABS Monocytes 3.2 10^3/uL (0.0-1.1); ABS Neutrophils 26.9 10^3/uL (1.5-7.6); ABS Nucleated RBC 0.02 10^3/ul; Eosinophil % 0.5 %; Lymphocyte % 8.2 %; Nucleated Red Blood Cells % 0.1 %/100WBC (0.0-0.8); Polychromasia 1+
[2023-02-19] MEDS: Aspirin EC 81 mg TAB.EC (enteric coated) PO SCH (10:19)
[2023-02-19] MEDS: Heparin 5000 UNITS/ML 1 mL VIAL SUBCUT SCH ×2 (10:21→20:04)
[2023-02-19] MEDS: Insulin NPH 100 units/ml SUBCUT SCH ×2 (10:21→15:44)
[2023-02-19] MEDS: Meropenem 1 GM PREMIX 1 GM/50 ML BAG IV SCH (18:20)
[2023-02-20] MEDS: Oxymetazoline 0.05% NASAL SPR 15 ML BTL PRN (05:33)
[2023-02-20] MEDS: Heparin 1,000 UNIT/ML 10 ml (10,000 UNITS) CATHLAB/DIALYSIS DIALYSIS PRN ×2 (07:20→10:54)
[2023-02-20 10:58] VITALS: BP 102/64
[2023-02-20] MEDS: Aspirin EC 81 mg TAB.EC (enteric coated) PO SCH (11:32)
[2023-02-20] MEDS: Heparin 5000 UNITS/ML 1 mL VIAL SUBCUT SCH (11:34)
[2023-02-20] MEDS: Insulin NPH 100 units/ml SUBCUT SCH (11:35)
== END 2023-02-20 13:25 | disposition home or self-care (01) | DRG 853 ==
LOC: ED 17:11 → SUATTDRO 22:26 → EDHOLD 22:26 → MED 02-11 15:25 → ICU 02-15 15:00 → MED 02-17 16:43
PROVIDERS: ADMIT Internal Medicine; ATTEND Student in an Organized Health Care Education/Training Program

== ENCOUNTER 2023-07-04 15:31 | Inpatient (IN) ==
[2023-07-04 16:34] LABS: INR 1.21 (0.83-1.13)
[2023-07-04 16:37] LABS: Hematocrit 18.1 % (38-53); Hemoglobin 5.9 g/dL (13.2-16.3); Mean Corpuscular Hemoglobin 28.8 pg (27-33); Mean Corpuscular Hgb Conc 32.5 g/dL (31-36); Mean Corpuscular Volume 88.6 fL (80-97); Mean Platelet Volume 8.4 fL (7.5-11.2); Platelet Count 577 10^3/uL (150-450); Red Blood Count 2.04 10^6/uL (4.06-5.63); Red Cell Distribution Width 17.4 % (12-17); White Blood Count 31.5 10^3/uL (3.6-10.2)
[2023-07-04 16:59] LABS: Albumin 3.4 g/dL (3.2-5.2); Albumin/Globulin Ratio 0.9 (1-3); C Reactive Protein 130.98 mg/L (<8.01); Creatinine, Serum 4.98 mg/dL (0.67-1.17); Globulin 3.7 g/dL (2-4); Magnesium 1.9 mg/dL (1.9-2.7); Potassium 5.4 mmol/L (3.5-5.0); Total Bilirubin 0.5 mg/dL (0.2-1.0); Total Protein 7.1 g/dL (6.4-8.9)
[2023-07-04 17:13] LABS: TSH Ultra Thyroid Stim Horm 3.29 mcIU/mL (0.34-5.60)
[2023-07-04 17:21] LABS: ABS Basophils 0.2 10^3/uL (0.0-0.1); ABS Eosinophils 0.2 10^3/uL (0.0-0.5); ABS Lymphocytes 0.8 10^3/uL (1.0-4.8); ABS Neutrophils 28.4 10^3/uL (1.5-7.6); ABS Nucleated RBC 0.01 10^3/ul; Eosinophil % 0.6 %; Lymphocyte % 2.4 %
[2023-07-04 17:51] LABS: High Sensitivity Troponin 1 Hr 795 pg/mL (<20)
[2023-07-04] MEDS: cefTRIAXone 2 gm/50 mL D5W 2 GM/50 ML BAG IV ONE (17:54)
[2023-07-04] MEDS: Linezolid 600 MG IVPREMIX(*) 600 MG/300 ML BAG IVPB ONE (18:30)
[2023-07-05] MEDS ORDERED: Dextrose 50% Syringe 50 ml 25 GM/50 ML SYRINGE IV PUSH PRN ×2 (01:12→01:23)
[2023-07-05 02:06] LABS: Glucose Confirmatory 403 mg/dL (70-100)
[2023-07-05] MEDS: Insulin GLARGINE 100 un/ml 10 ml VIAL SUBCUT ONE ×2 (02:14→22:28)
[2023-07-05 02:52] LABS: Urine Appearance Turbid; Urine Bilirubin Negative (Negative); Urine Blood Trace (Negative); Urine Color Yellow; Urine Glucose Trace (Negative); Urine Ketones Trace (Negative); Urine Nitrite Negative (Negative); Urine Protein 1+ (>=30 mg/dL) (Negative); Urine Specific Gravity 1.016 (1.002-1.030); Urine Urobilinogen Negative (Negative); Urine pH 5.5 (5.0-8.0)
[2023-07-05 03:01] LABS: Urine Bacteria 2+ /HPF (Absent); Urine Red Blood Cell Absent /HPF (0-Trace); Urine Squamous Epithelial Cell Present /HPF (Absent); Urine White Blood Cell 3+(>20/hpf) /HPF (0-Trace)
[2023-07-05 03:51] LABS: Hematocrit 20.8 % (38-53); Mean Corpuscular Hgb Conc 33.8 g/dL (31-36); Mean Corpuscular Volume 85.9 fL (80-97); Mean Platelet Volume 8.1 fL (7.5-11.2); Platelet Count 432 10^3/uL (150-450); Red Blood Count 2.42 10^6/uL (4.06-5.63); Red Cell Distribution Width 17.5 % (12-17); White Blood Count 23.3 10^3/uL (3.6-10.2)
[2023-07-05 04:15] LABS: ABS Basophils 0.2 10^3/uL (0.0-0.1); ABS Eosinophils 0.1 10^3/uL (0.0-0.5); ABS Lymphocytes 0.9 10^3/uL (1.0-4.8); ABS Monocytes 2.3 10^3/uL (0.0-1.1); ABS Neutrophils 19.8 10^3/uL (1.5-7.6); Eosinophil % 0.4 %; Lymphocyte % 3.9 %
[2023-07-05 04:22] LABS: Albumin 3.1 g/dL (3.2-5.2); Albumin/Globulin Ratio 0.9 (1-3); Calcium 8.2 mg/dL (8.6-10.3); Creatinine, Serum 5.12 mg/dL (0.67-1.17); Globulin 3.4 g/dL (2-4); Magnesium 1.9 mg/dL (1.9-2.7); Potassium 4.9 mmol/L (3.5-5.0); Total Bilirubin 0.6 mg/dL (0.2-1.0); Total Protein 6.5 g/dL (6.4-8.9); eGFR CKD-EPI 11.6 (>60)
[2023-07-05] MEDS: Linezolid 600 MG IVPREMIX(*) 600 MG/300 ML BAG IVPB SCH (05:23)
[2023-07-05] MEDS: Ondansetron 4 mg VIAL 2 MG/ML 2 ml VIAL IV PRN (10:54)
[2023-07-05 11:01] LABS: Hepatitis B Surface Antigen Nonreactive (Nonreactive)
[2023-07-05 11:18] LABS: Hepatitis B Surface Ab Not Immune (Immune)
[2023-07-05] MEDS ORDERED: NS 0.9% 1000 ml BAG 200 ML IV PRN (12:12)
[2023-07-05] MEDS ORDERED: Albumin Human 25% 25 GM/100 ML BTL IV PRN (12:12)
[2023-07-05] MEDS ORDERED: NS 0.9% 1000 ml BAG 100 ML IV PRN (12:12)
[2023-07-05 12:45] LABS: Immature Retic Fraction 0.07
[2023-07-05 13:36] LABS: Ferritin 1317.1 ng/mL (24-336)
[2023-07-05 13:39] LABS: Folate 7.22 ng/mL (5.90-24.80)
[2023-07-05] MEDS: Heparin 1,000 UNIT/ML 10 ml (10,000 UNITS) CATHLAB/DIALYSIS DIALYSIS PRN (13:45)
[2023-07-05 14:09] LABS: Hepatitis B Surface Antigen Nonreactive (Nonreactive)
[2023-07-05 15:14] LABS: Corrected Retic Count 0.1 % (0.5-2.2); Hematocrit for Retic CNT 20.6 % (38-53)
[2023-07-05] MEDS: cefTRIAXone 2 gm/50 mL D5W 2 GM/50 ML BAG IV SCH (18:42)
[2023-07-05] MEDS: Heparin 5000 UNITS/ML 1 mL VIAL SUBCUT SCH (21:52)
[2023-07-05] MEDS: Insulin GLARGINE 100 un/ml 10 ml VIAL SUBCUT SCH (22:17)
[2023-07-06 06:11] LABS: Hematocrit 20.3 % (38-53); Hemoglobin 6.9 g/dL (13.2-16.3); Mean Corpuscular Hemoglobin 28.8 pg (27-33); Mean Corpuscular Volume 84.8 fL (80-97); Mean Platelet Volume 7.7 fL (7.5-11.2); Platelet Count 416 10^3/uL (150-450); Red Cell Distribution Width 17.2 % (12-17); White Blood Count 19.1 10^3/uL (3.6-10.2)
[2023-07-06 06:25] LABS: ABS Basophils 0.3 10^3/uL (0.0-0.1); ABS Eosinophils 0.3 10^3/uL (0.0-0.5); ABS Lymphocytes 1.1 10^3/uL (1.0-4.8); ABS Monocytes 1.9 10^3/uL (0.0-1.1); ABS Neutrophils 15.5 10^3/uL (1.5-7.6); Eosinophil % 1.6 %
[2023-07-06 06:38] LABS: Albumin/Globulin Ratio 0.9 (1-3); Calcium 7.9 mg/dL (8.6-10.3); Creatinine, Serum 3.26 mg/dL (0.67-1.17); Globulin 3.4 g/dL (2-4); Magnesium 1.7 mg/dL (1.9-2.7); Phosphorus 3.9 mg/dL (2.5-5.0); Potassium 3.8 mmol/L (3.5-5.0); Total Bilirubin 0.3 mg/dL (0.2-1.0); Total Protein 6.4 g/dL (6.4-8.9)
[2023-07-06] MEDS: Magnesium Sulfate 2 gm BAG 2 GM/50 ML BAG IVPB ONE (09:38)
[2023-07-06] MEDS ORDERED: Sulfur Hexaflouride MICROSPHR 25 MG VIAL ONE (10:02)
[2023-07-06 17:40] LABS: Hematocrit 22.9 % (38-53); Hemoglobin 7.9 g/dL (13.2-16.3)
[2023-07-06] MEDS: Insulin GLARGINE 100 un/ml 10 ml VIAL SUBCUT ONE (21:11)
[2023-07-07 06:57] LABS: Hematocrit 21.4 % (38-53); Hemoglobin 7.3 g/dL (13.2-16.3); Mean Corpuscular Hemoglobin 29.4 pg (27-33); Mean Corpuscular Hgb Conc 34.3 g/dL (31-36); Mean Corpuscular Volume 85.9 fL (80-97); Mean Platelet Volume 8.1 fL (7.5-11.2); Platelet Count 363 10^3/uL (150-450); Red Blood Count 2.49 10^6/uL (4.06-5.63); Red Cell Distribution Width 16.7 % (12-17); White Blood Count 16.9 10^3/uL (3.6-10.2)
[2023-07-07 07:14] LABS: Calcium 7.6 mg/dL (8.6-10.3); Creatinine, Serum 3.8 mg/dL (0.67-1.17); Potassium 3.5 mmol/L (3.5-5.0); eGFR CKD-EPI 16.6 (>60)
[2023-07-07 07:56] LABS: ABS Basophils 0.2 10^3/uL (0.0-0.1); ABS Eosinophils 0.6 10^3/uL (0.0-0.5); ABS Lymphocytes 1.2 10^3/uL (1.0-4.8); ABS Neutrophils 12.9 10^3/uL (1.5-7.6); Eosinophil % 3.3 %; Lymphocyte % 7.4 %
[2023-07-07] MEDS: PEG 3000 GI LAVAGE 1 GALLON PO ONE (19:54)
[2023-07-07] MEDS: Insulin GLARGINE 100 un/ml 10 ml VIAL SUBCUT SCH (22:05)
[2023-07-08] MEDS: oxyCODONE/Acetamin 5/325 mg TAB PO PRN (01:49)
[2023-07-08 06:32] LABS: Hematocrit 21.9 % (38-53); Hemoglobin 7.5 g/dL (13.2-16.3); Mean Corpuscular Hemoglobin 29.3 pg (27-33); Mean Corpuscular Hgb Conc 34.2 g/dL (31-36); Mean Corpuscular Volume 85.8 fL (80-97); Mean Platelet Volume 7.6 fL (7.5-11.2); Platelet Count 363 10^3/uL (150-450); Red Blood Count 2.56 10^6/uL (4.06-5.63); Red Cell Distribution Width 16.8 % (12-17); White Blood Count 20.9 10^3/uL (3.6-10.2)
[2023-07-08 06:55] LABS: ABS Basophils 0.4 10^3/uL (0.0-0.1); ABS Eosinophils 1.3 10^3/uL (0.0-0.5); ABS Lymphocytes 1.7 10^3/uL (1.0-4.8); ABS Monocytes 2.1 10^3/uL (0.0-1.1); ABS Neutrophils 15.3 10^3/uL (1.5-7.6); ABS Nucleated RBC 0.01 10^3/ul; Eosinophil % 6.4 %; Lymphocyte % 8.3 %
[2023-07-08 09:39] LABS: Calcium 7.9 mg/dL (8.6-10.3); Creatinine, Serum 2.72 mg/dL (0.67-1.17); Potassium 3.3 mmol/L (3.5-5.0); eGFR CKD-EPI 24.8 (>60)
[2023-07-09 07:37] LABS: Calcium 8.2 mg/dL (8.6-10.3); Creatinine, Serum 3.59 mg/dL (0.67-1.17); Magnesium 1.7 mg/dL (1.9-2.7); Potassium 3.6 mmol/L (3.5-5.0); eGFR CKD-EPI 17.8 (>60)
[2023-07-09 07:47] LABS: Hematocrit 24.6 % (38-53); Hemoglobin 8.2 g/dL (13.2-16.3); Mean Corpuscular Hemoglobin 28.8 pg (27-33); Mean Corpuscular Hgb Conc 33.3 g/dL (31-36); Mean Corpuscular Volume 86.7 fL (80-97); Mean Platelet Volume 7.5 fL (7.5-11.2); Platelet Count 469 10^3/uL (150-450); Red Blood Count 2.83 10^6/uL (4.06-5.63); White Blood Count 21.8 10^3/uL (3.6-10.2)
[2023-07-09 08:39] LABS: ABS Basophils 0.4 10^3/uL (0.0-0.1); ABS Eosinophils 1.8 10^3/uL (0.0-0.5); ABS Lymphocytes 2.1 10^3/uL (1.0-4.8); ABS Monocytes 2.1 10^3/uL (0.0-1.1); ABS Neutrophils 15.4 10^3/uL (1.5-7.6); ABS Nucleated RBC 0.04 10^3/ul; Anisocytosis 1+; Eosinophil % 8.3 %; Lymphocyte % 9.7 %; Nucleated Red Blood Cells % 0.2 %/100WBC (0.0-0.8); Polychromasia 1+
[2023-07-09] MEDS ORDERED: Propofol 10 MG/ML 20 ML BTL IV ONE (13:30)
[2023-07-10 06:45] LABS: Calcium 8.3 mg/dL (8.6-10.3); Creatinine, Serum 2.67 mg/dL (0.67-1.17); Potassium 3.9 mmol/L (3.5-5.0); eGFR CKD-EPI 25.4 (>60)
[2023-07-10 08:18] LABS: ABS Basophils 0.3 10^3/uL (0.0-0.1); ABS Eosinophils 1.2 10^3/uL (0.0-0.5); ABS Lymphocytes 1.9 10^3/uL (1.0-4.8); ABS Monocytes 2.2 10^3/uL (0.0-1.1); ABS Neutrophils 12.4 10^3/uL (1.5-7.6); ABS Nucleated RBC 0.03 10^3/ul; Anisocytosis 1+; Eosinophil % 6.9 %; Hematocrit 24.9 % (38-53); Hemoglobin 8.4 g/dL (13.2-16.3); Lymphocyte % 10.4 %; Mean Corpuscular Hemoglobin 29.5 pg (27-33); Mean Corpuscular Hgb Conc 33.6 g/dL (31-36); Mean Corpuscular Volume 87.7 fL (80-97); Mean Platelet Volume 7.3 fL (7.5-11.2); Nucleated Red Blood Cells % 0.2 %/100WBC (0.0-0.8); Platelet Count 378 10^3/uL (150-450); Polychromasia 1+; Red Blood Count 2.84 10^6/uL (4.06-5.63); Red Cell Distribution Width 16.7 % (12-17)
[2023-07-10 09:58] VITALS: BP 112/61
[2023-07-10 13:58] LABS: Flag, M-protein Isotype Negative (Negative); Immunoglobulin A (IgA), S 545 mg/dL (61 - 356); Immunoglobulin G (IgG), S 1490 mg/dL (767 - 1590); Immunoglobulin M (IgM), S 45 mg/dL (37 - 286)
== END 2023-07-10 12:43 | disposition home or self-care (01) | DRG 808 ==
LOC: ED 15:31 → EDHOLD 15:31 → SUATTDRO 23:41 → MEDTELE 07-05 07:36 → SUATTDRO 07-06 11:11
PROVIDERS: ADMIT Internal Medicine; ATTEND Internal Medicine

== ENCOUNTER 2023-07-28 15:47 | Inpatient (IN) ==
[2023-07-28 17:05] LABS: Hematocrit 24.7 % (38-53); Hemoglobin 8.1 g/dL (13.2-16.3); Mean Corpuscular Hemoglobin 30.6 pg (27-33); Mean Corpuscular Hgb Conc 32.9 g/dL (31-36); Mean Platelet Volume 7.5 fL (7.5-11.2); Platelet Count 453 10^3/uL (150-450); Red Blood Count 2.65 10^6/uL (4.06-5.63); White Blood Count 19.6 10^3/uL (3.6-10.2)
[2023-07-28 17:11] LABS: Activated Partial Thrombo Time 25.8 seconds (26.0-38.0); INR 1.26 (0.83-1.13)
[2023-07-28 17:25] LABS: ABS Basophils 0.2 10^3/uL (0.0-0.1); ABS Eosinophils 0.9 10^3/uL (0.0-0.5); ABS Monocytes 2.1 10^3/uL (0.0-1.1); ABS Neutrophils 15.5 10^3/uL (1.5-7.6); Eosinophil % 4.4 %
[2023-07-28 17:35] LABS: Albumin 3.6 g/dL (3.2-5.2); C Reactive Protein 101.9 mg/L (<8.01); Creatinine, Serum 5.49 mg/dL (0.67-1.17); Globulin 3.6 g/dL (2-4); Potassium 4.3 mmol/L (3.5-5.0); Total Bilirubin 0.4 mg/dL (0.2-1.0); Total Protein 7.2 g/dL (6.4-8.9); eGFR CKD-EPI 10.6 (>60)
[2023-07-28] MEDS: NS 0.9% 500 ml BAG 500 ML IV ONE (17:41)
[2023-07-28 18:20] LABS: High Sensitivity Troponin 1 Hr 44 pg/mL (<20)
[2023-07-28] MEDS ORDERED: Polyethylene Glycol 3350 17 GM PACKET PO PRN (21:54)
[2023-07-28] MEDS ORDERED: Senna TAB 8.6 mg TAB PO PRN (21:54)
[2023-07-29] MEDS ORDERED: oxyCODONE/Acetamin 5/325 mg TAB PO PRN (00:31)
[2023-07-29] MEDS ORDERED: Naloxone Nasal Spray 4 MG/0.1 ML NASAL.SPR INTRANASAL PRN (00:31)
[2023-07-29] MEDS ORDERED: Dextrose 50% Syringe 50 ml 25 GM/50 ML SYRINGE IV PUSH PRN (00:42)
[2023-07-29 01:17] LABS: Osmolality Serum 300 mOsm/kg (275-295)
[2023-07-29 05:20] LABS: ABS Basophils 0.1 10^3/uL (0.0-0.1); ABS Eosinophils 0.5 10^3/uL (0.0-0.5); ABS Monocytes 1.5 10^3/uL (0.0-1.1); ABS Nucleated RBC 0.01 10^3/ul; Eosinophil % 4.3 %; Hematocrit 24.5 % (38-53); Lymphocyte % 8.6 %; Mean Corpuscular Hemoglobin 30.7 pg (27-33); Mean Corpuscular Hgb Conc 32.5 g/dL (31-36); Mean Corpuscular Volume 94.5 fL (80-97); Mean Platelet Volume 7.5 fL (7.5-11.2); Nucleated Red Blood Cells % 0.1 %/100WBC (0.0-0.8); Platelet Count 394 10^3/uL (150-450); Red Blood Count 2.59 10^6/uL (4.06-5.63); White Blood Count 12.1 10^3/uL (3.6-10.2)
[2023-07-29 05:34] LABS: INR 1.28 (0.83-1.13)
[2023-07-29 05:59] LABS: Calcium 8.5 mg/dL (8.6-10.3); Creatinine, Serum 5.46 mg/dL (0.67-1.17); Magnesium 1.8 mg/dL (1.9-2.7); Potassium 4.8 mmol/L (3.5-5.0); eGFR CKD-EPI 10.7 (>60)
[2023-07-29] MEDS ORDERED: NS 0.9% 1000 ml BAG 100 ML IV PRN (07:45)
[2023-07-29] MEDS ORDERED: Albumin Human 25% 25 GM/100 ML BTL IV PRN (07:45)
[2023-07-29] MEDS ORDERED: NS 0.9% 1000 ml BAG 200 ML IV PRN (07:45)
[2023-07-29] MEDS: Heparin 1,000 UNIT/ML 10 ml (10,000 UNITS) CATHLAB/DIALYSIS DIALYSIS PRN (09:00)
[2023-07-29] MEDS: Amoxicillin/Clavul 500/125 TAB (Augmentin 500 mg tab) PO SCH (12:19)
[2023-07-29] MEDS: Heparin 5000 UNITS/ML 1 mL VIAL SUBCUT SCH (12:47)
[2023-07-29] MEDS: Magnesium Sulfate 2 gm BAG 2 GM/50 ML BAG IVPB ONE (12:57)
[2023-07-29 13:50] VITALS: BP 111/68
[2023-07-29] MEDS ORDERED: Insulin GLARGINE 100 un/ml 10 ml VIAL SUBCUT SCH (21:00)
[2023-07-30] MEDS ORDERED: Amoxicillin/Clavul 500/125 TAB (Augmentin 500 mg tab) PO SCH (18:00)
== END 2023-07-29 16:26 | disposition home or self-care (01) | DRG 314 ==
LOC: ED 15:47 → EDHOLD 15:47 → OBSVTOIN 21:54 → SUATTDRO 21:54 → MEDTELE 07-29 07:18
PROVIDERS: ADMIT Internal Medicine; ATTEND Internal Medicine

== ENCOUNTER 2023-08-05 13:25 | Inpatient (IN) ==
[2023-08-05 13:59] LABS: Hematocrit 23.4 % (38-53); Hemoglobin 7.5 g/dL (13.2-16.3); Mean Corpuscular Hgb Conc 32.1 g/dL (31-36); Mean Corpuscular Volume 93.5 fL (80-97); Mean Platelet Volume 7.4 fL (7.5-11.2); Platelet Count 467 10^3/uL (150-450); Red Cell Distribution Width 24.4 % (12-17); White Blood Count 20.9 10^3/uL (3.6-10.2)
[2023-08-05 14:05] LABS: INR 1.29 (0.83-1.13)
[2023-08-05 14:32] LABS: ABS Basophils 0.2 10^3/uL (0.0-0.1); ABS Lymphocytes 1.2 10^3/uL (1.0-4.8); ABS Monocytes 3.3 10^3/uL (0.0-1.1); ABS Neutrophils 16.2 10^3/uL (1.5-7.6); Eosinophil % 0.2 %; Lymphocyte % 5.9 %
[2023-08-05] MEDS ORDERED: .Amiodarone 24HR ONLY IV Protocol Order Note IV ONE (14:38)
[2023-08-05] MEDS ORDERED: Amiodarone IV 150 mg/3 ml VIAL ONE (14:39)
[2023-08-05 14:43] LABS: Albumin 3.3 g/dL (3.2-5.2); Albumin/Globulin Ratio 0.8 (1-3); Calcium 8.9 mg/dL (8.6-10.3); Creatinine, Serum 3.42 mg/dL (0.67-1.17); Globulin 4.3 g/dL (2-4); Magnesium 1.9 mg/dL (1.9-2.7); Total Bilirubin 0.5 mg/dL (0.2-1.0); Total Protein 7.6 g/dL (6.4-8.9); eGFR CKD-EPI 18.7 (>60)
[2023-08-05] MEDS: Amiodarone 150 mg IVPREMIX 150 MG/100 ML BAG IV ONE (15:09)
[2023-08-05] MEDS: Heparin 5000 UNITS/ML 1 mL VIAL IV SCH (15:18)
[2023-08-05] MEDS: Heparin DRIP 25,000 UNITS BAG 25,000 UNITS/250 ML BAG IV SCH (15:18)
[2023-08-05] MEDS: Amiodarone 360 MG IVPREMIX 360 MG/200 ML BAG IV SCH ×2 (15:20→21:12)
[2023-08-05 16:05] LABS: High Sensitivity Troponin 1 Hr 2356 pg/mL (<20)
[2023-08-05 16:34] LABS: Creatinine, Serum 3.62 mg/dL (0.67-1.17); eGFR CKD-EPI 17.5 (>60)
[2023-08-05] MEDS ORDERED: Dextrose 50% Syringe 50 ml 25 GM/50 ML SYRINGE IV PUSH PRN (18:04)
[2023-08-05] MEDS: Insulin GLARGINE 100 un/ml 10 ml VIAL SUBCUT SCH (21:07)
[2023-08-05] MEDS ORDERED: NS 0.9% 1000 ml BAG 200 ML IV PRN (22:34)
[2023-08-05] MEDS ORDERED: NS 0.9% 1000 ml BAG 100 ML IV PRN (22:34)
[2023-08-05] MEDS ORDERED: Albumin Human 25% 25 GM/100 ML BTL IV PRN (22:34)
[2023-08-06 05:18] LABS: ABS Basophils 0.1 10^3/uL (0.0-0.1); ABS Lymphocytes 1.4 10^3/uL (1.0-4.8); ABS Monocytes 2.4 10^3/uL (0.0-1.1); ABS Neutrophils 14.7 10^3/uL (1.5-7.6); ABS Nucleated RBC 0.01 10^3/ul; Albumin 2.9 g/dL (3.2-5.2); Albumin/Globulin Ratio 0.8 (1-3); Anisocytosis 2+; Basophilic Stippling 1+; Calcium 8.5 mg/dL (8.6-10.3); Creatinine, Serum 4.22 mg/dL (0.67-1.17); Eosinophil % 0.1 %; Globulin 3.7 g/dL (2-4); Hematocrit 20.7 % (38-53); Hemoglobin 6.6 g/dL (13.2-16.3); Hypochromasia 1+; Lymphocyte % 7.7 %; Magnesium 1.9 mg/dL (1.9-2.7); Mean Corpuscular Hemoglobin 30.3 pg (27-33); Mean Corpuscular Volume 94.8 fL (80-97); Mean Platelet Volume 7.5 fL (7.5-11.2); Platelet Count 323 10^3/uL (150-450); Polychromasia 1+; Potassium 4.1 mmol/L (3.5-5.0); Red Blood Count 2.18 10^6/uL (4.06-5.63); Red Cell Distribution Width 24.5 % (12-17); Total Bilirubin 0.4 mg/dL (0.2-1.0); Total Protein 6.6 g/dL (6.4-8.9); White Blood Count 18.7 10^3/uL (3.6-10.2); eGFR CKD-EPI 14.6 (>60)
[2023-08-06 05:59] LABS: Hepatitis B Surface Antigen Nonreactive (Nonreactive)
[2023-08-06 06:16] LABS: Hepatitis B Surface Ab Not Immune (Immune)
[2023-08-06] MEDS: Amoxicillin/Clavul 500/125 TAB (Augmentin 500 mg tab) PO SCH ×2 (08:22→17:29)
[2023-08-06] MEDS: Amiodarone 400 mg TAB PO SCH (08:22)
[2023-08-06] MEDS ORDERED: Sulfur Hexaflouride MICROSPHR 25 MG VIAL ONE (09:44)
[2023-08-06] MEDS: Heparin 1,000 UNIT/ML 10 ml (10,000 UNITS) CATHLAB/DIALYSIS DIALYSIS PRN (12:40)
[2023-08-06 15:17] LABS: Hemoglobin 8.2 g/dL (13.2-16.3); Mean Corpuscular Hemoglobin 30.2 pg (27-33); Mean Corpuscular Hgb Conc 32.8 g/dL (31-36); Mean Platelet Volume 7.6 fL (7.5-11.2); Platelet Count 356 10^3/uL (150-450); Red Blood Count 2.72 10^6/uL (4.06-5.63); Red Cell Distribution Width 22.6 % (12-17); White Blood Count 19.1 10^3/uL (3.6-10.2)
[2023-08-06 15:26] LABS: INR 1.37 (0.83-1.13)
[2023-08-06 15:33] LABS: ABS Basophils 0.1 10^3/uL (0.0-0.1); ABS Lymphocytes 0.8 10^3/uL (1.0-4.8); ABS Monocytes 2.2 10^3/uL (0.0-1.1); Eosinophil % 0.1 %; Lymphocyte % 3.9 %
[2023-08-06] MEDS: Heparin 5000 UNITS/ML 1 mL VIAL SUBCUT SCH (21:33)
[2023-08-07 05:52] LABS: ABS Basophils 0.1 10^3/uL (0.0-0.1); ABS Lymphocytes 1.1 10^3/uL (1.0-4.8); ABS Monocytes 1.5 10^3/uL (0.0-1.1); ABS Neutrophils 12.3 10^3/uL (1.5-7.6); Eosinophil % 0.2 %; Hemoglobin 8.1 g/dL (13.2-16.3); Lymphocyte % 7.6 %; Mean Corpuscular Hemoglobin 30.2 pg (27-33); Mean Corpuscular Hgb Conc 32.5 g/dL (31-36); Mean Platelet Volume 7.7 fL (7.5-11.2); Platelet Count 354 10^3/uL (150-450); Red Blood Count 2.69 10^6/uL (4.06-5.63); Red Cell Distribution Width 22.9 % (12-17); White Blood Count 15.1 10^3/uL (3.6-10.2)
[2023-08-07 06:12] LABS: Calcium 8.4 mg/dL (8.6-10.3); Creatinine, Serum 3.38 mg/dL (0.67-1.17); Magnesium 1.8 mg/dL (1.9-2.7); Potassium 4.3 mmol/L (3.5-5.0)
[2023-08-07] MEDS: Collagenase 250 units/gm OINT 1 tube TOPICAL SCH (09:04)
[2023-08-07] MEDS: Insulin GLARGINE 100 un/ml 10 ml VIAL SUBCUT SCH (21:08)
[2023-08-08 13:50] VITALS: BP 105/67
== END 2023-08-08 17:38 | disposition home or self-care (01) | DRG 280 ==
LOC: ED 13:25 → EDHOLD 15:42 → SUATTDRO 15:42 → ICU 16:37 → MEDTELE 08-06 15:48
PROVIDERS: ADMIT Internal Medicine Critical Care Medicine; ATTEND Internal Medicine

== ENCOUNTER 2023-08-20 14:41 | Inpatient (IN) ==
[2023-08-20 16:20] LABS: Hematocrit 23.4 % (38-53); Hemoglobin 7.6 g/dL (13.2-16.3); Mean Corpuscular Hemoglobin 29.8 pg (27-33); Mean Corpuscular Hgb Conc 32.6 g/dL (31-36); Mean Corpuscular Volume 91.2 fL (80-97); Platelet Count 369 10^3/uL (150-450); Red Blood Count 2.57 10^6/uL (4.06-5.63); Red Cell Distribution Width 22.2 % (12-17); White Blood Count 22.1 10^3/uL (3.6-10.2)
[2023-08-20 16:22] LABS: ABS Basophils 0.2 10^3/uL (0.0-0.1); ABS Eosinophils 0.1 10^3/uL (0.0-0.5); ABS Lymphocytes 0.8 10^3/uL (1.0-4.8); ABS Monocytes 2.4 10^3/uL (0.0-1.1); ABS Neutrophils 18.4 10^3/uL (1.5-7.6); ABS Nucleated RBC 0.01 10^3/ul; Eosinophil % 0.5 %; Lymphocyte % 3.8 %
[2023-08-20 17:12] LABS: Calcium 8.7 mg/dL (8.6-10.3); Creatinine, Serum 4.16 mg/dL (0.67-1.17); Potassium 3.8 mmol/L (3.5-5.0); eGFR CKD-EPI 14.8 (>60)
[2023-08-20] MEDS: Meropenem 1 GM PREMIX(*) 1 GM/50 ML BAG IV ONE (18:19)
[2023-08-20 18:23] LABS: Urine Appearance Extra Turbid; Urine Bilirubin Negative (Negative); Urine Blood 1+ (Negative); Urine Glucose Negative (Negative); Urine Ketones Trace (Negative); Urine Nitrite Negative (Negative); Urine Protein 2+ (>=100 mg/dL) (Negative); Urine Specific Gravity 1.018 (1.002-1.030); Urine Urobilinogen Negative (Negative)
[2023-08-20 18:24] LABS: INR 1.27 (0.83-1.13)
[2023-08-20 18:26] LABS: Urine Bacteria 3+ /HPF (Absent); Urine Red Blood Cell 1+(3-5/hpf) /HPF (0-Trace); Urine Squamous Epithelial Cell Present /HPF (Absent); Urine White Blood Cell 3+(>20/hpf) /HPF (0-Trace)
[2023-08-20 18:29] LABS: Urine Color Light-Yellow
[2023-08-20 18:48] LABS: Albumin 2.8 g/dL (3.2-5.2); Albumin/Globulin Ratio 0.8 (1-3); C Reactive Protein 132.54 mg/L (<8.01); Direct Bilirubin 0.1 mg/dL (0.03-0.18); Globulin 3.7 g/dL (2-4); Indirect Bilirubin 0.2 mg/dL (0.3-1.0); Total Bilirubin 0.3 mg/dL (0.2-1.0); Total Protein 6.5 g/dL (6.4-8.9)
[2023-08-20] MEDS: Lactated Ringers 1000 ml BAG 500 ML IV ONE (19:56)
[2023-08-20] MEDS: Lactated Ringers 1000 ml BAG 1,000 ML IV ONE (19:56)
[2023-08-20] MEDS: Iodixanol (CONTRAST) 320 MG/ML 100 ML SDV IV ONE (20:56)
[2023-08-20] MEDS: Insulin GLARGINE 100 un/ml 10 ml VIAL SUBCUT SCH (23:24)
[2023-08-21] MEDS ORDERED: Dextrose 50% Syringe 50 ml 25 GM/50 ML SYRINGE IV PUSH PRN
[2023-08-21] MEDS: Lactated Ringers 1000 ml BAG 1,000 ML IV ONE (01:49)
[2023-08-21 04:21] LABS: Hematocrit 21.3 % (38-53); Hemoglobin 6.9 g/dL (13.2-16.3); Mean Corpuscular Hemoglobin 29.4 pg (27-33); Mean Corpuscular Hgb Conc 32.3 g/dL (31-36); Mean Corpuscular Volume 90.9 fL (80-97); Mean Platelet Volume 7.2 fL (7.5-11.2); Platelet Count 311 10^3/uL (150-450); Red Blood Count 2.34 10^6/uL (4.06-5.63); Red Cell Distribution Width 22.3 % (12-17); White Blood Count 19.7 10^3/uL (3.6-10.2)
[2023-08-21 04:47] LABS: C Reactive Protein 116.68 mg/L (<8.01); Calcium 7.9 mg/dL (8.6-10.3); Creatinine, Serum 4.26 mg/dL (0.67-1.17); Magnesium 1.4 mg/dL (1.9-2.7); Phosphorus 1.1 mg/dL (2.5-5.0); Potassium 4.1 mmol/L (3.5-5.0); eGFR CKD-EPI 14.4 (>60)
[2023-08-21 07:38] LABS: ABS Basophils 0.3 10^3/uL (0.0-0.1); ABS Eosinophils 0.2 10^3/uL (0.0-0.5); ABS Lymphocytes 1.3 10^3/uL (1.0-4.8); ABS Monocytes 1.8 10^3/uL (0.0-1.1); ABS Neutrophils 16.2 10^3/uL (1.5-7.6); Anisocytosis 2+; Eosinophil % 0.9 %; Hypochromasia 1+; Lymphocyte % 6.6 %
[2023-08-21] MEDS ORDERED: NS 0.9% 1000 ml BAG 200 ML IV PRN (07:41)
[2023-08-21] MEDS ORDERED: Albumin Human 25% 25 GM/100 ML BTL IV PRN (07:41)
[2023-08-21] MEDS ORDERED: NS 0.9% 1000 ml BAG 100 ML IV PRN (07:41)
[2023-08-21] MEDS: Heparin 1,000 UNIT/ML 10 ml (10,000 UNITS) CATHLAB/DIALYSIS DIALYSIS PRN (09:17)
[2023-08-21] MEDS: Magnesium Sulf 4 GM/100 ML IV 4,000 MG/100 ML BAG IVPB ONE (13:08)
[2023-08-21 13:36] LABS: Hematocrit 27.9 % (38-53)
[2023-08-21 13:56] LABS: Hepatitis B Surface Ab Not Immune (Immune)
[2023-08-21] MEDS: Meropenem 500MG PREMIX(*) 500 MG/50 ML BAG IV SCH (17:27)
[2023-08-22 06:38] LABS: Hematocrit 25.9 % (38-53); Hemoglobin 8.2 g/dL (13.2-16.3); Mean Corpuscular Hemoglobin 27.7 pg (27-33); Mean Corpuscular Hgb Conc 31.6 g/dL (31-36); Mean Corpuscular Volume 87.8 fL (80-97); Mean Platelet Volume 7.1 fL (7.5-11.2); Platelet Count 365 10^3/uL (150-450); Red Blood Count 2.95 10^6/uL (4.06-5.63); Red Cell Distribution Width 25.1 % (12-17); White Blood Count 14.3 10^3/uL (3.6-10.2)
[2023-08-22 07:07] LABS: Calcium 8.2 mg/dL (8.6-10.3); Creatinine, Serum 2.97 mg/dL (0.67-1.17); Magnesium 2.3 mg/dL (1.9-2.7); Phosphorus 1.7 mg/dL (2.5-5.0); eGFR CKD-EPI 22.2 (>60)
[2023-08-22 09:06] VITALS: BP 102/59
== END 2023-08-22 14:00 | disposition home or self-care (01) | DRG 871 ==
LOC: ED 14:41 → EDHOLD 14:41 → SUATTDRO 18:41 → INTOOBSV 18:41 → OBSVTOIN 18:41 → MEDTELE 22:00
PROVIDERS: ADMIT Student in an Organized Health Care Education/Training Program; ATTEND Hospitalist

== ENCOUNTER 2023-09-17 13:29 | Inpatient (IN) ==
[2023-09-17] MEDS: Ondansetron 4 mg VIAL 2 MG/ML 2 ml VIAL IV ONE (14:22)
[2023-09-17 15:14] LABS: Hematocrit 30.2 % (38-53); Mean Corpuscular Hemoglobin 26.9 pg (27-33); Mean Corpuscular Hgb Conc 29.9 g/dL (31-36); Mean Platelet Volume 7.8 fL (7.5-11.2); Platelet Count 315 10^3/uL (150-450); Red Blood Count 3.36 10^6/uL (4.06-5.63); Red Cell Distribution Width 25.5 % (12-17); White Blood Count 21.3 10^3/uL (3.6-10.2)
[2023-09-17 15:15] LABS: ABS Basophils 0.1 10^3/uL (0.0-0.1); ABS Lymphocytes 0.9 10^3/uL (1.0-4.8); ABS Monocytes 2.3 10^3/uL (0.0-1.1); ABS Neutrophils 17.9 10^3/uL (1.5-7.6); ABS Nucleated RBC 0.01 10^3/ul; Lymphocyte % 4.4 %
[2023-09-17 15:22] LABS: Albumin/Globulin Ratio 0.7 (1-3); Calcium 8.5 mg/dL (8.6-10.3); Creatinine, Serum 5.4 mg/dL (0.67-1.17); Globulin 4.1 g/dL (2-4); Total Bilirubin 0.4 mg/dL (0.2-1.0); Total Protein 7.1 g/dL (6.4-8.9); eGFR CKD-EPI 10.8 (>60)
[2023-09-17 15:23] LABS: Potassium 6.1 mmol/L (3.5-5.0)
[2023-09-17] MEDS ORDERED: Dextrose 50% Syringe 50 ml 25 GM/50 ML SYRINGE IV PUSH PRN ×2 (15:43→19:45)
[2023-09-17] MEDS: Insulin Infusion 100unit/100mL 100 UNIT/100 ML BAG IV SCH ×2 (16:17→21:53)
[2023-09-17] MEDS: Lactated Ringers 1000 ml BAG 1,000 ML IV ONE (16:21)
[2023-09-17] MEDS: Meropenem 1 GM PREMIX(*) 1 GM/50 ML BAG IV ONE (16:26)
[2023-09-17] MEDS: Sodium Bicarb 8.4% Vial 50 ML 150 MEQ in D5W 1000 ml BAG 850 ML IV SCH (17:20)
[2023-09-17 17:21] LABS: Urine Appearance Extra Turbid; Urine Bilirubin Negative (Negative); Urine Blood 1+ (Negative); Urine Glucose 3+ (>=300 mg/dL) (Negative); Urine Ketones Negative (Negative); Urine Nitrite Negative (Negative); Urine Protein 2+ (>=100 mg/dL) (Negative); Urine Specific Gravity 1.016 (1.002-1.030); Urine Urobilinogen Negative (Negative); Urine pH 5.5 (5.0-8.0)
[2023-09-17 17:35] LABS: Osmolality Serum 328 mOsm/kg (275-295)
[2023-09-17 17:38] LABS: Budding Yeast Present /HPF (Absent); Urine Bacteria Absent /HPF (Absent); Urine Red Blood Cell 3+(>10/hpf) /HPF (0-Trace); Urine Squamous Epithelial Cell Present /HPF (Absent); Urine White Blood Cell 3+(>20/hpf) /HPF (0-Trace)
[2023-09-17 17:47] LABS: Magnesium 1.7 mg/dL (1.9-2.7); Phosphorus 7.7 mg/dL (2.5-5.0)
[2023-09-17 18:09] LABS: Urine Color Yellow
[2023-09-17] MEDS ORDERED: NS 0.9% 1000 ml BAG 100 ML IV PRN (18:12)
[2023-09-17] MEDS ORDERED: Albumin Human 25% 25 GM/100 ML BTL IV PRN (18:12)
[2023-09-17] MEDS ORDERED: NS 0.9% 1000 ml BAG 200 ML IV PRN (18:12)
[2023-09-17] MEDS ORDERED: Insulin GLARGINE 100 un/ml 10 ml VIAL SUBCUT SCH (18:30)
[2023-09-17] MEDS: Insulin GLARGINE 100 un/ml 10 ml VIAL SUBCUT SCH ×2 (19:11→20:36)
[2023-09-17 19:38] LABS: Glucose Confirmatory 459 mg/dL (70-100)
[2023-09-17 19:56] LABS: Calcium 8.5 mg/dL (8.6-10.3); Creatinine, Serum 5.27 mg/dL (0.67-1.17); Potassium 5.9 mmol/L (3.5-5.0); eGFR CKD-EPI 11.2 (>60)
[2023-09-17 19:58] LABS: Activated Partial Thrombo Time 28.5 seconds (26.0-38.0); INR 1.39 (0.83-1.13)
[2023-09-17 20:40] LABS: Hepatitis B Surface Antigen Nonreactive (Nonreactive)
[2023-09-17] MEDS: Heparin 5000 UNITS/ML 1 mL VIAL SUBCUT SCH (22:03)
[2023-09-17] MEDS: Heparin 1,000 UNIT/ML 10 ml (10,000 UNITS) CATHLAB/DIALYSIS DIALYSIS PRN (22:25)
[2023-09-18] MEDS ORDERED: Dextrose 50% Syringe 50 ml 25 GM/50 ML SYRINGE IV PUSH PRN (01:05)
[2023-09-18 05:57] LABS: Hematocrit 28.7 % (38-53); Hemoglobin 8.9 g/dL (13.2-16.3); Mean Corpuscular Hemoglobin 27.2 pg (27-33); Mean Corpuscular Hgb Conc 31.1 g/dL (31-36); Mean Corpuscular Volume 87.5 fL (80-97); Mean Platelet Volume 7.3 fL (7.5-11.2); Platelet Count 309 10^3/uL (150-450); Red Blood Count 3.28 10^6/uL (4.06-5.63); Red Cell Distribution Width 24.8 % (12-17); White Blood Count 17.5 10^3/uL (3.6-10.2)
[2023-09-18 06:42] LABS: Anion Gap 13 mmol/L (2-16); Blood Urea Nitrogen 61 mg/dL (6-24); CO2 Carbon Dioxide 24 mmol/L (22-32); Calcium 8.8 mg/dL (8.6-10.3); Chloride 97 mmol/L (101-111); Creatinine, Serum 3.73 mg/dL (0.67-1.17); Glucose 43 mg/dL (70-100); Sodium 134 mmol/L (135-145); eGFR CKD-EPI 16.9 (>60)
[2023-09-18 07:48] LABS: ABS Basophils 0.2 10^3/uL (0.0-0.1); ABS Eosinophils 0.1 10^3/uL (0.0-0.5); ABS Lymphocytes 1.4 10^3/uL (1.0-4.8); ABS Monocytes 1.8 10^3/uL (0.0-1.1); Eosinophil % 0.6 %; Lymphocyte % 8.1 %
[2023-09-18 10:28] LABS: Calcium 8.4 mg/dL (8.6-10.3); Creatinine, Serum 3.76 mg/dL (0.67-1.17); Magnesium 1.5 mg/dL (1.9-2.7); Phosphorus 4.8 mg/dL (2.5-5.0); Potassium 4.7 mmol/L (3.5-5.0); eGFR CKD-EPI 16.7 (>60)
[2023-09-18] MEDS: Magnesium Sulfate 2 gm BAG 2 GM/50 ML BAG IVPB ONE (13:01)
[2023-09-18 15:48] LABS: Venous Bicarbonate HCO3 23.8 mmol/L (24-28)
[2023-09-19 06:46] LABS: ABS Basophils 0.1 10^3/uL (0.0-0.1); ABS Eosinophils 0.1 10^3/uL (0.0-0.5); ABS Lymphocytes 1.3 10^3/uL (1.0-4.8); ABS Monocytes 1.3 10^3/uL (0.0-1.1); ABS Neutrophils 11.7 10^3/uL (1.5-7.6); ABS Nucleated RBC 0.01 10^3/ul; Eosinophil % 0.4 %; Hematocrit 25.7 % (38-53); Hemoglobin 8.1 g/dL (13.2-16.3); Lymphocyte % 9.2 %; Mean Corpuscular Hemoglobin 27.8 pg (27-33); Mean Corpuscular Hgb Conc 31.4 g/dL (31-36); Mean Corpuscular Volume 88.4 fL (80-97); Mean Platelet Volume 7.4 fL (7.5-11.2); Nucleated Red Blood Cells % 0.1 %/100WBC (0.0-0.8); Platelet Count 282 10^3/uL (150-450); Red Cell Distribution Width 24.4 % (12-17); White Blood Count 14.5 10^3/uL (3.6-10.2)
[2023-09-19 07:02] LABS: Calcium 8.2 mg/dL (8.6-10.3); Creatinine, Serum 4.06 mg/dL (0.67-1.17); Phosphorus 4.5 mg/dL (2.5-5.0); eGFR CKD-EPI 15.3 (>60)
[2023-09-19] MEDS ORDERED: NS 0.9% 1000 ml BAG 100 ML IV PRN (08:59)
[2023-09-19] MEDS ORDERED: Heparin 1,000 UNIT/ML 10 ml (10,000 UNITS) CATHLAB/DIALYSIS DIALYSIS PRN (08:59)
[2023-09-19] MEDS ORDERED: Albumin Human 25% 25 GM/100 ML BTL IV PRN (08:59)
[2023-09-19] MEDS ORDERED: NS 0.9% 1000 ml BAG 200 ML IV PRN (08:59)
[2023-09-19 11:52] LABS: High Sensitivity Troponin 1 Hr 284 pg/mL (<20)
[2023-09-19 12:45] LABS: C Reactive Protein 105.25 mg/L (<8.01)
[2023-09-19] MEDS: Heparin 1,000 UNIT/ML 10 ml (10,000 UNITS) CATHLAB/DIALYSIS DIALYSIS PRN (18:31)
[2023-09-19] MEDS: Insulin GLARGINE 100 un/ml 10 ml VIAL SUBCUT SCH (22:20)
[2023-09-20 07:45] LABS: Calcium 8.1 mg/dL (8.6-10.3); Creatinine, Serum 3.04 mg/dL (0.67-1.17); Magnesium 1.7 mg/dL (1.9-2.7); Phosphorus 3.4 mg/dL (2.5-5.0); Potassium 4.9 mmol/L (3.5-5.0); eGFR CKD-EPI 21.6 (>60)
[2023-09-20 07:52] LABS: ABS Basophils 0.2 10^3/uL (0.0-0.1); ABS Eosinophils 0.1 10^3/uL (0.0-0.5); ABS Lymphocytes 1.4 10^3/uL (1.0-4.8); ABS Monocytes 1.3 10^3/uL (0.0-1.1); ABS Neutrophils 14.6 10^3/uL (1.5-7.6); Eosinophil % 0.3 %; Hematocrit 27.1 % (38-53); Hemoglobin 8.5 g/dL (13.2-16.3); Lymphocyte % 7.7 %; Mean Corpuscular Hemoglobin 27.8 pg (27-33); Mean Corpuscular Hgb Conc 31.5 g/dL (31-36); Mean Corpuscular Volume 88.5 fL (80-97); Mean Platelet Volume 7.3 fL (7.5-11.2); Platelet Count 278 10^3/uL (150-450); Red Blood Count 3.06 10^6/uL (4.06-5.63); Red Cell Distribution Width 25.2 % (12-17); White Blood Count 17.5 10^3/uL (3.6-10.2)
[2023-09-20] MEDS ORDERED: Insulin GLARGINE 100 un/ml 10 ml VIAL SUBCUT SCH ×2 (18:00→21:00)
[2023-09-20] MEDS: Insulin GLARGINE 100 un/ml 10 ml VIAL SUBCUT SCH (18:02)
[2023-09-20 18:45] LABS: HDL Cholesterol 26.6 mg/dL
[2023-09-20 19:10] LABS: Folate 6.34 ng/mL (5.90-24.80)
[2023-09-20 20:13] LABS: Ferritin 2335.6 ng/mL (24-336)
[2023-09-21 06:44] LABS: ABS Basophils 0.2 10^3/uL (0.0-0.1); ABS Eosinophils 0.1 10^3/uL (0.0-0.5); ABS Lymphocytes 1.9 10^3/uL (1.0-4.8); ABS Monocytes 1.5 10^3/uL (0.0-1.1); ABS Neutrophils 17.9 10^3/uL (1.5-7.6); ABS Nucleated RBC 0.01 10^3/ul; Eosinophil % 0.6 %; Hematocrit 26.4 % (38-53); Hemoglobin 8.4 g/dL (13.2-16.3); Lymphocyte % 8.7 %; Mean Corpuscular Hemoglobin 28.1 pg (27-33); Mean Corpuscular Hgb Conc 31.8 g/dL (31-36); Mean Corpuscular Volume 88.3 fL (80-97); Mean Platelet Volume 7.4 fL (7.5-11.2); Platelet Count 285 10^3/uL (150-450); Red Cell Distribution Width 23.8 % (12-17); White Blood Count 21.7 10^3/uL (3.6-10.2)
[2023-09-21 08:29] LABS: Calcium 8.2 mg/dL (8.6-10.3); Creatinine, Serum 3.67 mg/dL (0.67-1.17); Magnesium 1.7 mg/dL (1.9-2.7); Potassium 4.7 mmol/L (3.5-5.0); eGFR CKD-EPI 17.2 (>60)
[2023-09-21] MEDS: Magnesium Sulfate IV 1GM/100ML 1 GM/100 ML BAG IV ONE (12:18)
[2023-09-21 22:23] LABS: Glucose Confirmatory 454 mg/dL (70-100)
[2023-09-21] MEDS ORDERED: Dextrose 50% Syringe 50 ml 25 GM/50 ML SYRINGE IV PUSH PRN (23:05)
[2023-09-22 07:02] LABS: Hematocrit 24.6 % (38-53); Mean Corpuscular Hemoglobin 28.2 pg (27-33); Mean Corpuscular Hgb Conc 32.4 g/dL (31-36); Mean Platelet Volume 7.4 fL (7.5-11.2); Platelet Count 241 10^3/uL (150-450); Red Blood Count 2.82 10^6/uL (4.06-5.63); Red Cell Distribution Width 24.7 % (12-17); White Blood Count 18.8 10^3/uL (3.6-10.2)
[2023-09-22 07:08] LABS: ABS Basophils 0.1 10^3/uL (0.0-0.1); ABS Eosinophils 0.3 10^3/uL (0.0-0.5); ABS Lymphocytes 1.5 10^3/uL (1.0-4.8); ABS Monocytes 1.6 10^3/uL (0.0-1.1); ABS Neutrophils 15.3 10^3/uL (1.5-7.6); Eosinophil % 1.6 %; Lymphocyte % 7.9 %
[2023-09-22 07:39] LABS: Creatinine, Serum 4.09 mg/dL (0.67-1.17); Magnesium 1.9 mg/dL (1.9-2.7); Potassium 4.9 mmol/L (3.5-5.0); eGFR CKD-EPI 15.1 (>60)
[2023-09-22] MEDS ORDERED: Aminophylline 25 MG/ML VIAL ONE (08:27)
[2023-09-22] MEDS ORDERED: Regadenoson 0.4 MG/5 ML SYRINGE ONE (08:27)
[2023-09-22] MEDS: Sulfur Hexaflouride MICROSPHR 25 MG VIAL IV ONE (13:34)
[2023-09-22 14:32] VITALS: BP 127/58
[2023-09-22] MEDS ORDERED: NS 0.9% 1000 ml BAG 200 ML IV PRN (19:02)
[2023-09-22] MEDS ORDERED: Heparin 1,000 UNIT/ML 10 ml (10,000 UNITS) CATHLAB/DIALYSIS DIALYSIS PRN (19:02)
[2023-09-22] MEDS ORDERED: Albumin Human 25% 25 GM/100 ML BTL IV PRN (19:02)
[2023-09-22] MEDS ORDERED: NS 0.9% 1000 ml BAG 100 ML IV PRN (19:02)
== END 2023-09-22 19:10 | disposition home or self-care (01) | DRG 637 ==
LOC: ED 13:29 → EDHOLD 16:05 → SUATTDRO 16:05 → ICU 19:56 → MED 09-18 09:32
PROVIDERS: ADMIT Student in an Organized Health Care Education/Training Program; ATTEND Hospitalist

== ENCOUNTER 2023-10-11 10:45 | Inpatient (IN) ==
[2023-10-11 12:11] LABS: Hematocrit 25.5 % (38-53); Hemoglobin 7.8 g/dL (13.2-16.3); Mean Corpuscular Hemoglobin 27.4 pg (27-33); Mean Corpuscular Hgb Conc 30.6 g/dL (31-36); Mean Corpuscular Volume 89.7 fL (80-97); Mean Platelet Volume 7.7 fL (7.5-11.2); Platelet Count 364 10^3/uL (150-450); Red Blood Count 2.85 10^6/uL (4.06-5.63); Red Cell Distribution Width 24.4 % (12-17); White Blood Count 23.5 10^3/uL (3.6-10.2)
[2023-10-11] MEDS: Tranexamic Acid 1,000 MG/10 ML SDV TOPICAL ONE (12:22)
[2023-10-11 12:36] LABS: High Sens Troponin Baseline 25 pg/mL (<20)
[2023-10-11 13:04] LABS: ABS Basophils 0.2 10^3/uL (0.0-0.1); ABS Eosinophils 0.1 10^3/uL (0.0-0.5); ABS Lymphocytes 0.9 10^3/uL (1.0-4.8); ABS Monocytes 1.9 10^3/uL (0.0-1.1); ABS Neutrophils 20.5 10^3/uL (1.5-7.6); ABS Nucleated RBC 0.01 10^3/ul; Eosinophil % 0.3 %; Lymphocyte % 3.8 %; Nucleated Red Blood Cells % 0.1 %/100WBC (0.0-0.8)
[2023-10-11 13:07] LABS: ALT 15 U/L (7-52); Albumin 2.8 g/dL (3.2-5.2); Albumin/Globulin Ratio 0.6 (1-3); Alkaline Phosphatase 126 U/L (35-149); Anion Gap 18 mmol/L (2-16); Blood Urea Nitrogen 115 mg/dL (6-24); C Reactive Protein 194.55 mg/L (<8.01); CO2 Carbon Dioxide 17 mmol/L (22-32); Calcium 8.7 mg/dL (8.6-10.3); Chloride 92 mmol/L (101-111); Creatinine, Serum 5.59 mg/dL (0.67-1.17); Globulin 4.4 g/dL (2-4); Glucose 222 mg/dL (70-100); Sodium 127 mmol/L (135-145); Total Bilirubin 0.4 mg/dL (0.2-1.0); Total Protein 7.2 g/dL (6.4-8.9); eGFR CKD-EPI 10.4 (>60)
[2023-10-11 14:56] LABS: Magnesium 1.6 mg/dL (1.9-2.7); Potassium Redraw 5.7 mmol/L (3.5-5.0)
[2023-10-11] MEDS: NS 0.9% 500 ml BAG 500 ML IV ONE (16:09)
[2023-10-11] MEDS ORDERED: Dextrose 50% Syringe 50 ml 25 GM/50 ML SYRINGE IV PUSH PRN (17:32)
[2023-10-11] MEDS ORDERED: NS 0.9% 1000 ml BAG 100 ML IV PRN (17:50)
[2023-10-11] MEDS ORDERED: NS 0.9% 1000 ml BAG 200 ML IV PRN (17:50)
[2023-10-11] MEDS ORDERED: Albumin Human 25% 25 GM/100 ML BTL IV PRN (17:50)
[2023-10-11] MEDS: SODIUM ZIRCONIUM CYCLOSILICATE 10 GM PACKET PO ONE (19:05)
[2023-10-11] MEDS: Heparin 1,000 UNIT/ML 10 ml (10,000 UNITS) CATHLAB/DIALYSIS DIALYSIS PRN (20:13)
[2023-10-11 20:58] LABS: Hepatitis B Surface Ab Not Immune (Immune)
[2023-10-11 21:54] LABS: Hepatitis B Surface Antigen Nonreactive (Nonreactive)
[2023-10-12] MEDS: Insulin GLARGINE 100 un/ml 10 ml VIAL SUBCUT SCH (00:24)
[2023-10-12 00:42] LABS: ABS Basophils 0.1 10^3/uL (0.0-0.1); ABS Monocytes 1.4 10^3/uL (0.0-1.1); ABS Neutrophils 13.6 10^3/uL (1.5-7.6); ABS Nucleated RBC 0.01 10^3/ul; Eosinophil % 0.2 %; Hematocrit 26.4 % (38-53); Mean Corpuscular Hemoglobin 27.9 pg (27-33); Mean Corpuscular Hgb Conc 30.3 g/dL (31-36); Mean Corpuscular Volume 91.9 fL (80-97); Mean Platelet Volume 7.2 fL (7.5-11.2); Nucleated Red Blood Cells % 0.1 %/100WBC (0.0-0.8); Platelet Count 322 10^3/uL (150-450); Red Blood Count 2.87 10^6/uL (4.06-5.63); Red Cell Distribution Width 23.5 % (12-17); White Blood Count 16.1 10^3/uL (3.6-10.2)
[2023-10-12] MEDS: HYDROmorphone 0.5 MG/0.5 ML SYRINGE IV SLOW PU PRN (01:43)
[2023-10-12 06:15] LABS: ABS Basophils 0.1 10^3/uL (0.0-0.1); ABS Eosinophils 0.1 10^3/uL (0.0-0.5); ABS Monocytes 1.5 10^3/uL (0.0-1.1); ABS Neutrophils 11.6 10^3/uL (1.5-7.6); ABS Nucleated RBC 0.01 10^3/ul; Eosinophil % 0.4 %; Hematocrit 23.3 % (38-53); Hemoglobin 7.5 g/dL (13.2-16.3); Lymphocyte % 7.3 %; Mean Corpuscular Hgb Conc 31.9 g/dL (31-36); Mean Corpuscular Volume 87.8 fL (80-97); Mean Platelet Volume 7.2 fL (7.5-11.2); Platelet Count 332 10^3/uL (150-450); Red Blood Count 2.66 10^6/uL (4.06-5.63); Red Cell Distribution Width 23.2 % (12-17); White Blood Count 14.3 10^3/uL (3.6-10.2)
[2023-10-12 06:56] LABS: Calcium 8.3 mg/dL (8.6-10.3); Creatinine, Serum 3.27 mg/dL (0.67-1.17); Potassium 4.5 mmol/L (3.5-5.0); eGFR CKD-EPI 19.8 (>60)
[2023-10-12 16:39] VITALS: BP 121/60
== END 2023-10-12 17:50 | disposition home or self-care (01) | DRG 640 ==
LOC: ED 10:45 → EDHOLD 16:07 → MEDTELE 16:48
PROVIDERS: ADMIT Student in an Organized Health Care Education/Training Program; ATTEND Student in an Organized Health Care Education/Training Program

== ENCOUNTER 2023-10-16 10:27 | Inpatient (IN) ==
[2023-10-16 13:20] LABS: Hematocrit 26.5 % (38-53); Hemoglobin 8.1 g/dL (13.2-16.3); Mean Corpuscular Hemoglobin 27.3 pg (27-33); Mean Corpuscular Hgb Conc 30.5 g/dL (31-36); Mean Corpuscular Volume 89.5 fL (80-97); Mean Platelet Volume 6.9 fL (7.5-11.2); Platelet Count 359 10^3/uL (150-450); Red Blood Count 2.96 10^6/uL (4.06-5.63); Red Cell Distribution Width 22.6 % (12-17); White Blood Count 39.7 10^3/uL (3.6-10.2)
[2023-10-16 13:21] LABS: Activated Partial Thrombo Time 29.5 seconds (26.0-38.0); INR 1.49 (0.83-1.13)
[2023-10-16 13:27] LABS: Albumin 2.8 g/dL (3.2-5.2); Albumin/Globulin Ratio 0.6 (1-3); C Reactive Protein 146.69 mg/L (<8.01); Calcium 8.8 mg/dL (8.6-10.3); Creatinine, Serum 4.32 mg/dL (0.67-1.17); Globulin 4.4 g/dL (2-4); Potassium 4.6 mmol/L (3.5-5.0); Total Bilirubin 0.4 mg/dL (0.2-1.0); Total Protein 7.2 g/dL (6.4-8.9); eGFR CKD-EPI 14.2 (>60)
[2023-10-16] MEDS: Morphine 4 MG/ML VIAL (1 ml) IV ONE (13:33)
[2023-10-16 13:41] LABS: ABS Basophils 0.1 10^3/uL (0.0-0.1); ABS Lymphocytes 0.7 10^3/uL (1.0-4.8); ABS Monocytes 3.6 10^3/uL (0.0-1.1); ABS Neutrophils 35.2 10^3/uL (1.5-7.6); Eosinophil % 0.1 %; Lymphocyte % 1.8 %
[2023-10-16] MEDS: Iodixanol (CONTRAST) 320 MG/ML 100 ML SDV IV ONE (14:33)
[2023-10-16] MEDS ORDERED: NS 0.9% 1000 ml BAG 100 ML IV PRN (14:41)
[2023-10-16] MEDS ORDERED: NS 0.9% 1000 ml BAG 200 ML IV PRN (14:41)
[2023-10-16] MEDS ORDERED: Heparin 1,000 UNIT/ML 10 ml (10,000 UNITS) CATHLAB/DIALYSIS DIALYSIS PRN (14:41)
[2023-10-16] MEDS: Cefepime 1 GM in Dextrose 1 GM/50 ML BAG IV ONE (14:55)
[2023-10-16] MEDS: Vancomycin 1,000 MG in NS 0.9% 250 ml 250 ML IVPB ONE (15:49)
[2023-10-16 15:58] LABS: Hepatitis B Surface Antigen Nonreactive (Nonreactive)
[2023-10-16 17:10] LABS: Urine Appearance Extra Turbid; Urine Bilirubin Negative (Negative); Urine Blood Trace (Negative); Urine Glucose Negative (Negative); Urine Ketones Negative (Negative); Urine Nitrite Negative (Negative); Urine Protein 1+ (>=30 mg/dL) (Negative); Urine Specific Gravity 1.012 (1.002-1.030); Urine Urobilinogen Negative (Negative)
[2023-10-16 17:14] LABS: High Sensitivity Troponin 1 Hr 56 pg/mL (<20)
[2023-10-16 17:25] LABS: Urine Bacteria 3+ /HPF (Absent); Urine Red Blood Cell Trace(0-2/hpf) /HPF (0-Trace); Urine Squamous Epithelial Cell Present /HPF (Absent); Urine White Blood Cell 3+(>20/hpf) /HPF (0-Trace)
[2023-10-16 17:26] LABS: Urine Color Light-Yellow
[2023-10-16] MEDS ORDERED: Vancomycin per Pharmacy 1 EA NOTE FOLLOW UP SCH (18:00)
[2023-10-16] MEDS: Lactated Ringers 1000 ml BAG 1,000 ML IV ONE (18:07)
[2023-10-16 18:48] LABS: PCO2 Arterial 39 mmHg (35-45); PO2 Arterial 140 mmHg (80-100)
[2023-10-16 18:54] LABS: High Sensitivity Troponin 3 Hr 31 pg/mL (<20)
[2023-10-16 19:12] LABS: LDL Cholesterol Direct 12 mg/dL
[2023-10-16] MEDS: Insulin GLARGINE 100 un/ml 10 ml VIAL SUBCUT SCH (22:26)
[2023-10-16] MEDS: Cefepime 2 GM in Dextrose 2 GM/50 ML BAG IV SCH (22:48)
[2023-10-17] MEDS: Cefepime ADVAN 1 GM in NS 0.9% 50 ML 50 ML IVPB SCH (00:22)
[2023-10-17 08:18] LABS: Hematocrit 26.7 % (38-53); Hemoglobin 8.1 g/dL (13.2-16.3); Mean Corpuscular Hemoglobin 27.9 pg (27-33); Mean Corpuscular Hgb Conc 30.3 g/dL (31-36); Mean Corpuscular Volume 92.1 fL (80-97); Mean Platelet Volume 6.9 fL (7.5-11.2); Platelet Count 280 10^3/uL (150-450); Red Cell Distribution Width 23.4 % (12-17)
[2023-10-17 08:24] LABS: ABS Basophils 0.2 10^3/uL (0.0-0.1); ABS Lymphocytes 0.8 10^3/uL (1.0-4.8); ABS Monocytes 2.9 10^3/uL (0.0-1.1); Eosinophil % 0.1 %; Lymphocyte % 2.8 %
[2023-10-17 08:58] LABS: Calcium 8.1 mg/dL (8.6-10.3); Creatinine, Serum 4.44 mg/dL (0.67-1.17); Magnesium 1.5 mg/dL (1.9-2.7); Vancomycin Random 9.6 mcg/mL; eGFR CKD-EPI 13.7 (>60)
[2023-10-17] MEDS ORDERED: Lidocaine 2% PF 5 ML VIAL ONE (09:44)
[2023-10-17] MEDS ORDERED: Propofol 10 MG/ML 20 ML BTL ONE ×2 (09:44)
[2023-10-17] MEDS ORDERED: Midazolam 2 mg/2 ml VIAL 1 mg/ml 2 ml VIAL (2 mg) ONE (09:44)
[2023-10-17] MEDS: Vancomycin Random Level NOTE FOLLOW UP ONE (10:51)
[2023-10-17] MEDS: Albumin Human 25% 25 GM/100 ML BTL IV PRN (13:13)
[2023-10-17] MEDS: Heparin 1,000 UNIT/ML 10 ml (10,000 UNITS) CATHLAB/DIALYSIS DIALYSIS PRN (15:00)
[2023-10-17] MEDS: Vancomycin 750 MG in NS 0.9% 250 ML IVPB ONE (18:07)
[2023-10-18] MEDS: Ondansetron 4 mg VIAL 2 MG/ML 2 ml VIAL IV PRN (02:37)
[2023-10-18 05:41] LABS: Hematocrit 26.5 % (38-53); Hemoglobin 8.4 g/dL (13.2-16.3); Mean Corpuscular Hemoglobin 28.3 pg (27-33); Mean Corpuscular Hgb Conc 31.6 g/dL (31-36); Mean Corpuscular Volume 89.7 fL (80-97); Mean Platelet Volume 6.8 fL (7.5-11.2); Platelet Count 266 10^3/uL (150-450); Red Blood Count 2.95 10^6/uL (4.06-5.63); Red Cell Distribution Width 23.1 % (12-17)
[2023-10-18 06:04] LABS: Calcium 8.2 mg/dL (8.6-10.3); Creatinine, Serum 3.23 mg/dL (0.67-1.17); Magnesium 1.4 mg/dL (1.9-2.7); Potassium 3.7 mmol/L (3.5-5.0); eGFR CKD-EPI 20.1 (>60)
[2023-10-18 06:05] LABS: ABS Basophils 0.2 10^3/uL (0.0-0.1); ABS Eosinophils 0.1 10^3/uL (0.0-0.5); ABS Lymphocytes 1.1 10^3/uL (1.0-4.8); ABS Monocytes 2.9 10^3/uL (0.0-1.1); ABS Neutrophils 20.7 10^3/uL (1.5-7.6); ABS Nucleated RBC 0.01 10^3/ul; Eosinophil % 0.3 %; Lymphocyte % 4.4 %
[2023-10-18] MEDS: Vancomycin Random Level NOTE FOLLOW UP ONE (12:28)
[2023-10-18] MEDS: Magnesium Sulf 4 GM/100 ML IV 4,000 MG/100 ML BAG IVPB ONE (12:54)
[2023-10-18] MEDS: Potassium Chlor 10 meq TAB PO ONE (13:24)
[2023-10-18] MEDS: Enoxaparin 30 MG/0.3 ML SYR SUBCUT SCH (16:55)
[2023-10-19] MEDS: Ondansetron 4 mg VIAL 2 MG/ML 2 ml VIAL IV ONE (04:27)
[2023-10-19 06:27] LABS: Hematocrit 26.6 % (38-53); Hemoglobin 8.2 g/dL (13.2-16.3); Mean Corpuscular Hemoglobin 28.1 pg (27-33); Mean Corpuscular Volume 90.7 fL (80-97); Mean Platelet Volume 7.1 fL (7.5-11.2); Platelet Count 300 10^3/uL (150-450); Red Blood Count 2.94 10^6/uL (4.06-5.63); Red Cell Distribution Width 22.3 % (12-17); White Blood Count 31.8 10^3/uL (3.6-10.2)
[2023-10-19 06:38] LABS: Calcium 8.3 mg/dL (8.6-10.3); Creatinine, Serum 2.64 mg/dL (0.67-1.17); Magnesium 2.2 mg/dL (1.9-2.7); Potassium 3.7 mmol/L (3.5-5.0); eGFR CKD-EPI 25.6 (>60)
[2023-10-19 06:58] LABS: ABS Basophils 0.1 10^3/uL (0.0-0.1); ABS Lymphocytes 0.8 10^3/uL (1.0-4.8); ABS Monocytes 2.6 10^3/uL (0.0-1.1); ABS Neutrophils 28.3 10^3/uL (1.5-7.6); Lymphocyte % 2.5 %
[2023-10-19] MEDS ORDERED: Vancomycin per Pharmacy 1 EA NOTE FOLLOW UP PRN (10:23)
[2023-10-19] MEDS ORDERED: Morphine 2 MG/ML SYRINGE IV PRN (12:14)
[2023-10-19] MEDS: Vancomycin 750 MG in NS 0.9% 250 ml 250 ML IVPB ONE (13:29)
[2023-10-19] MEDS ORDERED: Albumin Human 25% 25 GM/100 ML BTL IV PRN (13:46)
[2023-10-19] MEDS ORDERED: NS 0.9% 1000 ml BAG 100 ML IV PRN (13:46)
[2023-10-19] MEDS ORDERED: NS 0.9% 1000 ml BAG 200 ML IV PRN (13:46)
[2023-10-19] MEDS ORDERED: Ondansetron 4 mg VIAL 2 MG/ML 2 ml VIAL IV PRN (15:22)
[2023-10-19] MEDS: Prochlorperazine 5 mg/ml 2 ml VIAL (10 mg) IV PRN (15:37)
[2023-10-20 06:32] LABS: Hematocrit 25.6 % (38-53); Hemoglobin 8.2 g/dL (13.2-16.3); Mean Corpuscular Hemoglobin 28.5 pg (27-33); Mean Corpuscular Hgb Conc 31.9 g/dL (31-36); Mean Corpuscular Volume 89.4 fL (80-97); Mean Platelet Volume 7.1 fL (7.5-11.2); Platelet Count 318 10^3/uL (150-450); Red Blood Count 2.86 10^6/uL (4.06-5.63); Red Cell Distribution Width 22.9 % (12-17)
[2023-10-20 06:57] LABS: Calcium 8.2 mg/dL (8.6-10.3); Creatinine, Serum 3.2 mg/dL (0.67-1.17); Magnesium 2.1 mg/dL (1.9-2.7); Potassium 4.1 mmol/L (3.5-5.0); eGFR CKD-EPI 20.3 (>60)
[2023-10-20 07:20] LABS: ABS Basophils 0.2 10^3/uL (0.0-0.1); ABS Eosinophils 0.1 10^3/uL (0.0-0.5); ABS Lymphocytes 1.1 10^3/uL (1.0-4.8); ABS Monocytes 1.9 10^3/uL (0.0-1.1); ABS Neutrophils 24.5 10^3/uL (1.5-7.6); ABS Nucleated RBC 0.01 10^3/ul; Anisocytosis 2+; Eosinophil % 0.3 %; Hypersegmented Neutrophils Present; Lymphocyte % 3.9 %
[2023-10-21] MEDS ORDERED: Vancomycin Random Level NOTE FOLLOW UP ONE (06:00)
[2023-10-21 06:45] LABS: Hematocrit 26.1 % (38-53); Hemoglobin 8.2 g/dL (13.2-16.3); Mean Corpuscular Hemoglobin 28.3 pg (27-33); Mean Corpuscular Hgb Conc 31.6 g/dL (31-36); Mean Corpuscular Volume 89.6 fL (80-97); Platelet Count 380 10^3/uL (150-450); Red Blood Count 2.91 10^6/uL (4.06-5.63); Red Cell Distribution Width 22.3 % (12-17); White Blood Count 34.5 10^3/uL (3.6-10.2)
[2023-10-21 07:27] LABS: Calcium 8.4 mg/dL (8.6-10.3); Creatinine, Serum 3.92 mg/dL (0.67-1.17); Magnesium 2.1 mg/dL (1.9-2.7); Potassium 4.3 mmol/L (3.5-5.0); Vancomycin Random 16.5 mcg/mL; eGFR CKD-EPI 15.9 (>60)
[2023-10-21] MEDS ORDERED: Dextrose 50% Syringe 50 ml 25 GM/50 ML SYRINGE IV PUSH PRN ×2 (07:37)
[2023-10-21 08:34] LABS: ABS Basophils 0.1 10^3/uL (0.0-0.1); ABS Lymphocytes 1.9 10^3/uL (1.0-4.8); ABS Monocytes 3.4 10^3/uL (0.0-1.1); Eosinophil % 0.1 %; Lymphocyte % 5.6 %
[2023-10-21] MEDS: Heparin 1,000 UNIT/ML 10 ml (10,000 UNITS) CATHLAB/DIALYSIS DIALYSIS PRN (09:20)
[2023-10-21] MEDS: Vancomycin 750 MG in NS 0.9% 250 ml 250 ML IVPB ONE (13:33)
[2023-10-21 14:07] VITALS: BP 118/50
[2023-10-21] MEDS ORDERED: Insulin GLARGINE 100 un/ml 10 ml VIAL SUBCUT SCH (21:00)
[2023-10-23] MEDS ORDERED: Vancomycin Random Level NOTE FOLLOW UP ONE (06:00)
== END 2023-10-21 16:20 | disposition home health service (06) | DRG 871 ==
LOC: EDHOLD 10:27 → ED 10:27 → OBSVTOIN 17:11 → SUATTDRO 17:11 → MEDTELE 18:03
PROVIDERS: ADMIT Internal Medicine; ATTEND Student in an Organized Health Care Education/Training Program
PROC: O.CATEE (2023-10-17 09:30)

== ENCOUNTER 2023-11-06 10:49 | Inpatient (IN) ==
[2023-11-06] MEDS: Lactated Ringers 1000 ml BAG IV.FLUID IV ONE (12:02)
[2023-11-06] MEDS: Piperacillin/Tazobac 3.375 BAG 3.375 GM/100 ML BAG IV ONE (12:02)
[2023-11-06 12:08] LABS: INR 1.27 (0.85-1.14)
[2023-11-06 12:15] LABS: Hematocrit 21.5 % (38-53); Hemoglobin 6.4 g/dL (13.2-16.3); Mean Corpuscular Hemoglobin 28.5 pg (27-33); Mean Corpuscular Hgb Conc 29.9 g/dL (31-36); Mean Corpuscular Volume 95.5 fL (80-97); Platelet Count 356 10^3/uL (150-450); Red Blood Count 2.25 10^6/uL (4.06-5.63); Red Cell Distribution Width 22.4 % (12-17); White Blood Count 29.3 10^3/uL (3.6-10.2)
[2023-11-06 12:20] LABS: Mean Platelet Volume 7.4 fL (7.5-11.2)
[2023-11-06 12:22] LABS: Albumin 2.5 g/dL (3.2-5.2); Albumin/Globulin Ratio 0.7 (1-3); C Reactive Protein 169.85 mg/L (<8.01); Calcium 8.1 mg/dL (8.6-10.3); Creatinine, Serum 3.36 mg/dL (0.67-1.17); Globulin 3.5 g/dL (2-4); Magnesium 1.6 mg/dL (1.9-2.7); Phosphorus 3.2 mg/dL (2.5-5.0); Potassium 5.2 mmol/L (3.5-5.0); Total Bilirubin 0.4 mg/dL (0.2-1.0); eGFR CKD-EPI 19.1 (>60)
[2023-11-06 12:30] LABS: ABS Basophils 0.2 10^3/uL (0.0-0.1); ABS Lymphocytes 0.8 10^3/uL (1.0-4.8); ABS Monocytes 1.4 10^3/uL (0.0-1.1); ABS Neutrophils 26.9 10^3/uL (1.5-7.6); Lymphocyte % 2.6 %
[2023-11-06] MEDS ORDERED: Naloxone Nasal Spray 4 MG/0.1 ML NASAL.SPR INTRANASAL PRN (14:08)
[2023-11-06 15:11] LABS: Urine Appearance Extra Turbid; Urine Bilirubin Negative (Negative); Urine Blood 1+ (Negative); Urine Color Yellow; Urine Glucose Negative (Negative); Urine Ketones Negative (Negative); Urine Nitrite Negative (Negative); Urine Protein 2+ (>=100 mg/dL) (Negative); Urine Urobilinogen Negative (Negative); Urine pH 5.5 (5.0-8.0)
[2023-11-06 15:14] LABS: Budding Yeast Present /HPF (Absent); Urine Amorphous Crystals Present /HPF (Absent); Urine Bacteria 1+ /HPF (Absent); Urine Red Blood Cell 3+(>10/hpf) /HPF (0-Trace); Urine Squamous Epithelial Cell Present /HPF (Absent); Urine Transitional Epithelial Present /HPF (Absent); Urine White Blood Cell 3+(>20/hpf) /HPF (0-Trace)
[2023-11-06 15:31] LABS: TSH Ultra Thyroid Stim Horm 1.49 mcIU/mL (0.34-5.60)
[2023-11-06] MEDS ORDERED: NS 0.9% 1000 ml BAG 200 ML IV PRN (16:10)
[2023-11-06] MEDS ORDERED: Albumin Human 25% 25 GM/100 ML BTL IV PRN (16:10)
[2023-11-06] MEDS ORDERED: NS 0.9% 1000 ml BAG 100 ML IV PRN (16:10)
[2023-11-06 16:54] LABS: ABS Basophils 0.1 10^3/uL (0.0-0.1); ABS Lymphocytes 0.9 10^3/uL (1.0-4.8); ABS Monocytes 1.1 10^3/uL (0.0-1.1); ABS Neutrophils 17.2 10^3/uL (1.5-7.6); Eosinophil % 0.1 %; Hematocrit 19.7 % (38-53); Lymphocyte % 4.7 %; Mean Corpuscular Hgb Conc 30.5 g/dL (31-36); Mean Platelet Volume 7.2 fL (7.5-11.2); Platelet Count 329 10^3/uL (150-450); Red Blood Count 2.07 10^6/uL (4.06-5.63); Red Cell Distribution Width 22.4 % (12-17); White Blood Count 19.3 10^3/uL (3.6-10.2)
[2023-11-06 16:55] LABS: High Sensitivity Troponin 1 Hr 20 pg/mL (<20)
[2023-11-06 17:03] LABS: Activated Partial Thrombo Time 29.1 seconds (26.0-38.0); INR 1.26 (0.85-1.14)
[2023-11-06 17:06] LABS: Creatinine, Serum 3.28 mg/dL (0.67-1.17); eGFR CKD-EPI 19.7 (>60)
[2023-11-06] MEDS: Vancomycin 1,000 MG in NS 0.9% 250 ml 250 ML IVPB ONE (17:12)
[2023-11-06 20:39] LABS: Hemoglobin 6.4 g/dL (13.2-16.3)
[2023-11-06] MEDS ORDERED: Insulin GLARGINE 100 un/ml 10 ml VIAL SUBCUT SCH (21:00)
[2023-11-06] MEDS: Heparin 5000 UNITS/ML 1 mL VIAL SUBCUT SCH (22:47)
[2023-11-06] MEDS: Insulin GLARGINE 100 un/ml 10 ml VIAL SUBCUT SCH (22:48)
[2023-11-07 02:35] LABS: Hematocrit 23.9 % (38-53); Hemoglobin 7.5 g/dL (13.2-16.3)
[2023-11-07] MEDS: HYDROcodone/ACETAMIN 5/325 mg TAB PO PRN (05:38)
[2023-11-07 06:03] LABS: Albumin 2.5 g/dL (3.2-5.2); Albumin/Globulin Ratio 0.6 (1-3); Creatinine, Serum 3.31 mg/dL (0.67-1.17); Globulin 3.9 g/dL (2-4); Magnesium 1.5 mg/dL (1.9-2.7); Total Bilirubin 0.4 mg/dL (0.2-1.0); Total Protein 6.4 g/dL (6.4-8.9); eGFR CKD-EPI 19.5 (>60)
[2023-11-07 06:07] LABS: Hematocrit 24.4 % (38-53); Hemoglobin 7.5 g/dL (13.2-16.3); Mean Corpuscular Hemoglobin 27.6 pg (27-33); Mean Corpuscular Hgb Conc 30.9 g/dL (31-36); Mean Corpuscular Volume 89.3 fL (80-97); Mean Platelet Volume 7.4 fL (7.5-11.2); Platelet Count 337 10^3/uL (150-450); Red Blood Count 2.73 10^6/uL (4.06-5.63); Red Cell Distribution Width 25.2 % (12-17); White Blood Count 16.6 10^3/uL (3.6-10.2)
[2023-11-07 07:41] LABS: ABS Basophils 0.2 10^3/uL (0.0-0.1); ABS Lymphocytes 1.1 10^3/uL (1.0-4.8); ABS Monocytes 1.5 10^3/uL (0.0-1.1); ABS Neutrophils 13.8 10^3/uL (1.5-7.6); ABS Nucleated RBC 0.01 10^3/ul; Anisocytosis 1+; Eosinophil % 0.2 %; Hypochromasia 2+; Lymphocyte % 6.9 %
[2023-11-07] MEDS: Heparin 1,000 UNIT/ML 10 ml (10,000 UNITS) CATHLAB/DIALYSIS DIALYSIS PRN (08:45)
[2023-11-07] MEDS: Lidocaine 1% MPF 5 ML VIAL INJ ONE (12:20)
[2023-11-07 14:06] LABS: Hematocrit 22.6 % (38-53); Hemoglobin 7.4 g/dL (13.2-16.3)
[2023-11-07] MEDS: Magnesium Sulf 4 GM/100 ML IV 4,000 MG/100 ML BAG IVPB ONE (15:30)
[2023-11-07 22:37] LABS: Hematocrit 23.3 % (38-53); Hemoglobin 7.2 g/dL (13.2-16.3)
[2023-11-07] MEDS: Pantoprazole VIAL 40 MG VIAL IV SCH (22:42)
[2023-11-08 05:42] LABS: Hematocrit 23.3 % (38-53); Hemoglobin 7.4 g/dL (13.2-16.3); Mean Corpuscular Hemoglobin 28.3 pg (27-33); Mean Corpuscular Hgb Conc 31.7 g/dL (31-36); Mean Corpuscular Volume 89.1 fL (80-97); Mean Platelet Volume 7.1 fL (7.5-11.2); Platelet Count 321 10^3/uL (150-450); Red Blood Count 2.61 10^6/uL (4.06-5.63); Red Cell Distribution Width 24.8 % (12-17); White Blood Count 16.7 10^3/uL (3.6-10.2)
[2023-11-08 07:01] LABS: Albumin 2.3 g/dL (3.2-5.2); Albumin/Globulin Ratio 0.7 (1-3); Calcium 7.7 mg/dL (8.6-10.3); Creatinine, Serum 2.5 mg/dL (0.67-1.17); Globulin 3.3 g/dL (2-4); Magnesium 2.2 mg/dL (1.9-2.7); Phosphorus 1.8 mg/dL (2.5-5.0); Potassium 4.5 mmol/L (3.5-5.0); Total Bilirubin 0.3 mg/dL (0.2-1.0); Total Protein 5.6 g/dL (6.4-8.9); eGFR CKD-EPI 27.3 (>60)
[2023-11-08 15:44] LABS: Ferritin 1011.9 ng/mL (24-336)
[2023-11-09 10:42] LABS: ABS Basophils 0.2 10^3/uL (0.0-0.1); ABS Eosinophils 0.2 10^3/uL (0.0-0.5); ABS Lymphocytes 1.2 10^3/uL (1.0-4.8); ABS Monocytes 1.6 10^3/uL (0.0-1.1); Eosinophil % 1.2 %; Hematocrit 23.5 % (38-53); Hemoglobin 7.2 g/dL (13.2-16.3); Lymphocyte % 7.8 %; Mean Corpuscular Hemoglobin 28.2 pg (27-33); Mean Corpuscular Hgb Conc 30.8 g/dL (31-36); Mean Corpuscular Volume 91.6 fL (80-97); Mean Platelet Volume 7.4 fL (7.5-11.2); Platelet Count 303 10^3/uL (150-450); Red Blood Count 2.57 10^6/uL (4.06-5.63)
[2023-11-10 05:47] LABS: ABS Basophils 0.2 10^3/uL (0.0-0.1); ABS Eosinophils 0.1 10^3/uL (0.0-0.5); ABS Monocytes 1.4 10^3/uL (0.0-1.1); ABS Neutrophils 11.6 10^3/uL (1.5-7.6); Hematocrit 23.9 % (38-53); Hemoglobin 7.5 g/dL (13.2-16.3); Lymphocyte % 7.2 %; Mean Corpuscular Hemoglobin 28.4 pg (27-33); Mean Corpuscular Hgb Conc 31.4 g/dL (31-36); Mean Corpuscular Volume 90.3 fL (80-97); Mean Platelet Volume 7.2 fL (7.5-11.2); Platelet Count 284 10^3/uL (150-450); Red Blood Count 2.65 10^6/uL (4.06-5.63); Red Cell Distribution Width 24.8 % (12-17); White Blood Count 14.4 10^3/uL (3.6-10.2)
[2023-11-10] MEDS: Insulin GLARGINE 100 un/ml 10 ml VIAL SUBCUT SCH (23:00)
[2023-11-11 06:34] LABS: Hematocrit 23.5 % (38-53); Hemoglobin 7.6 g/dL (13.2-16.3); Mean Corpuscular Hemoglobin 29.5 pg (27-33); Mean Corpuscular Hgb Conc 32.4 g/dL (31-36); Mean Platelet Volume 7.3 fL (7.5-11.2); Platelet Count 269 10^3/uL (150-450); Red Blood Count 2.59 10^6/uL (4.06-5.63); Red Cell Distribution Width 24.4 % (12-17); White Blood Count 14.9 10^3/uL (3.6-10.2)
[2023-11-11 06:42] LABS: Calcium 8.4 mg/dL (8.6-10.3); Creatinine, Serum 2.76 mg/dL (0.67-1.17); Magnesium 1.7 mg/dL (1.9-2.7); Potassium 4.3 mmol/L (3.5-5.0); eGFR CKD-EPI 24.2 (>60)
[2023-11-11] MEDS: Magnesium Sulfate 2 gm BAG 2 GM/50 ML BAG IVPB ONE (08:31)
[2023-11-11] MEDS: HYDROmorphone 1 MG/1 ML SYRINGE IV SLOW PU ONE (15:03)
[2023-11-11] MEDS: Insulin GLARGINE 100 un/ml 10 ml VIAL SUBCUT SCH (21:05)
[2023-11-12] MEDS: Magnesium Sulfate 2 gm BAG 2 GM/50 ML BAG IVPB ONE (12:13)
[2023-11-12 13:56] LABS: Hematocrit 23.9 % (38-53); Hemoglobin 7.4 g/dL (13.2-16.3); Mean Corpuscular Hemoglobin 28.2 pg (27-33); Mean Corpuscular Hgb Conc 30.9 g/dL (31-36); Mean Corpuscular Volume 91.1 fL (80-97); Mean Platelet Volume 7.4 fL (7.5-11.2); Platelet Count 280 10^3/uL (150-450); Red Blood Count 2.62 10^6/uL (4.06-5.63); Red Cell Distribution Width 23.6 % (12-17); White Blood Count 15.8 10^3/uL (3.6-10.2)
[2023-11-12 14:08] LABS: ABS Basophils 0.1 10^3/uL (0.0-0.1); ABS Eosinophils 0.4 10^3/uL (0.0-0.5); ABS Lymphocytes 1.2 10^3/uL (1.0-4.8); ABS Monocytes 1.8 10^3/uL (0.0-1.1); Eosinophil % 2.6 %; Lymphocyte % 7.1 %
[2023-11-12 14:50] LABS: Calcium 7.9 mg/dL (8.6-10.3); Creatinine, Serum 2.47 mg/dL (0.67-1.17); Magnesium 1.7 mg/dL (1.9-2.7); Potassium 4.6 mmol/L (3.5-5.0); eGFR CKD-EPI 27.7 (>60)
[2023-11-12] MEDS: guaiFENesin 100 mg/5 ml LIQ unit dose cup PO PRN (18:10)
[2023-11-13] MEDS: Dextrose 50% Syringe 50 ml 25 GM/50 ML SYRINGE IV PUSH PRN (07:40)
[2023-11-13] MEDS: Polyethylene Glycol 3350 17 GM PACKET PO SCH (08:06)
[2023-11-13 09:33] LABS: Hematocrit 24.2 % (38-53); Hemoglobin 7.8 g/dL (13.2-16.3); Mean Corpuscular Hemoglobin 29.4 pg (27-33); Mean Corpuscular Hgb Conc 32.1 g/dL (31-36); Mean Corpuscular Volume 91.4 fL (80-97); Mean Platelet Volume 6.9 fL (7.5-11.2); Platelet Count 268 10^3/uL (150-450); Red Blood Count 2.65 10^6/uL (4.06-5.63); Red Cell Distribution Width 23.8 % (12-17)
[2023-11-13 10:46] LABS: Calcium 7.7 mg/dL (8.6-10.3); Creatinine, Serum 2.34 mg/dL (0.67-1.17); Potassium 3.9 mmol/L (3.5-5.0); eGFR CKD-EPI 29.6 (>60)
[2023-11-13] MEDS ORDERED: Insulin GLARGINE 100 un/ml 10 ml VIAL SUBCUT SCH (21:00)
[2023-11-13] MEDS ORDERED: Senna/Docusate 8.6/50 mg (NF) TAB PO SCH (21:00)
[2023-11-13] MEDS: Senna TAB 8.6 mg TAB PO SCH (21:47)
[2023-11-14 06:21] LABS: Hematocrit 24.3 % (38-53); Hemoglobin 7.7 g/dL (13.2-16.3); Mean Corpuscular Hemoglobin 28.6 pg (27-33); Mean Corpuscular Hgb Conc 31.5 g/dL (31-36); Mean Corpuscular Volume 90.8 fL (80-97); Platelet Count 284 10^3/uL (150-450); Red Blood Count 2.68 10^6/uL (4.06-5.63); Red Cell Distribution Width 23.8 % (12-17); White Blood Count 15.9 10^3/uL (3.6-10.2)
[2023-11-14 06:40] LABS: Calcium 7.7 mg/dL (8.6-10.3); Creatinine, Serum 2.86 mg/dL (0.67-1.17); Magnesium 1.8 mg/dL (1.9-2.7); Potassium 4.7 mmol/L (3.5-5.0); eGFR CKD-EPI 23.2 (>60)
[2023-11-14] MEDS: Insulin GLARGINE 100 un/ml 10 ml VIAL SUBCUT SCH (09:44)
[2023-11-14] MEDS: Magnesium Sulfate 2 gm BAG 2 GM/50 ML BAG IVPB ONE (11:29)
[2023-11-14] MEDS: Acetaminophen IV 1 GM/100ML 1,000 MG/100 ML BAG IV ONE (16:47)
[2023-11-14 23:58] LABS: Hepatitis B Surface Ab Not Immune (Immune)
[2023-11-15 07:17] LABS: Hematocrit 23.6 % (38-53); Hemoglobin 7.6 g/dL (13.2-16.3); Mean Corpuscular Hemoglobin 29.6 pg (27-33); Mean Corpuscular Hgb Conc 32.4 g/dL (31-36); Mean Corpuscular Volume 91.3 fL (80-97); Mean Platelet Volume 7.2 fL (7.5-11.2); Platelet Count 270 10^3/uL (150-450); Red Blood Count 2.58 10^6/uL (4.06-5.63); Red Cell Distribution Width 23.4 % (12-17); White Blood Count 15.4 10^3/uL (3.6-10.2)
[2023-11-15 07:33] LABS: Calcium 7.6 mg/dL (8.6-10.3); Creatinine, Serum 3.59 mg/dL (0.67-1.17); Magnesium 2.1 mg/dL (1.9-2.7); Potassium 5.1 mmol/L (3.5-5.0); eGFR CKD-EPI 17.7 (>60)
[2023-11-15 20:24] LABS: Hepatitis B Surface Antigen Nonreactive (Nonreactive)
[2023-11-15 22:48] LABS: Glucose Confirmatory 419 mg/dL (70-100)
[2023-11-15] MEDS ORDERED: Dextrose 50% Syringe 50 ml 25 GM/50 ML SYRINGE IV PUSH PRN (23:14)
[2023-11-16] MEDS: Acetaminophen IV 1 GM/100ML 1,000 MG/100 ML BAG IV ONE (00:53)
[2023-11-16 17:22] LABS: ABS Basophils 0.2 10^3/uL (0.0-0.1); ABS Eosinophils 0.2 10^3/uL (0.0-0.5); ABS Lymphocytes 0.9 10^3/uL (1.0-4.8); ABS Monocytes 1.6 10^3/uL (0.0-1.1); ABS Neutrophils 13.9 10^3/uL (1.5-7.6); ABS Nucleated RBC 0.01 10^3/ul; Eosinophil % 1.5 %; Hemoglobin 5.7 g/dL (13.2-16.3); Lymphocyte % 5.5 %; Mean Corpuscular Hemoglobin 27.7 pg (27-33); Mean Corpuscular Volume 92.4 fL (80-97); Mean Platelet Volume 6.9 fL (7.5-11.2); Platelet Count 230 10^3/uL (150-450); Red Blood Count 2.06 10^6/uL (4.06-5.63); Red Cell Distribution Width 23.8 % (12-17); White Blood Count 16.8 10^3/uL (3.6-10.2)
[2023-11-16 17:49] LABS: Calcium 8.1 mg/dL (8.6-10.3); Creatinine, Serum 3.2 mg/dL (0.67-1.17); Magnesium 1.8 mg/dL (1.9-2.7); Potassium 4.8 mmol/L (3.5-5.0); eGFR CKD-EPI 20.3 (>60)
[2023-11-16 17:56] LABS: Hematocrit 22.7 % (38-53); Hemoglobin 7.2 g/dL (13.2-16.3)
[2023-11-17 08:09] LABS: Hematocrit 22.8 % (38-53); Hemoglobin 7.2 g/dL (13.2-16.3); Mean Corpuscular Hgb Conc 31.7 g/dL (31-36); Mean Corpuscular Volume 91.5 fL (80-97); Mean Platelet Volume 7.1 fL (7.5-11.2); Platelet Count 283 10^3/uL (150-450); Red Blood Count 2.49 10^6/uL (4.06-5.63); Red Cell Distribution Width 23.5 % (12-17); White Blood Count 17.4 10^3/uL (3.6-10.2)
[2023-11-17 08:28] LABS: Calcium 8.5 mg/dL (8.6-10.3); Creatinine, Serum 3.66 mg/dL (0.67-1.17); Potassium 5.2 mmol/L (3.5-5.0); eGFR CKD-EPI 17.3 (>60)
[2023-11-17 10:16] LABS: ABS Basophils 0.2 10^3/uL (0.0-0.1); ABS Eosinophils 0.3 10^3/uL (0.0-0.5); ABS Lymphocytes 1.4 10^3/uL (1.0-4.8); ABS Monocytes 1.8 10^3/uL (0.0-1.1); ABS Neutrophils 13.6 10^3/uL (1.5-7.6); ABS Nucleated RBC 0.01 10^3/ul; Eosinophil % 1.7 %; Lymphocyte % 8.3 %
[2023-11-18 07:29] LABS: Calcium 8.3 mg/dL (8.6-10.3); Creatinine, Serum 2.48 mg/dL (0.67-1.17); Magnesium 1.5 mg/dL (1.9-2.7); Potassium 4.3 mmol/L (3.5-5.0); eGFR CKD-EPI 27.6 (>60)
[2023-11-18] MEDS: Magnesium Sulf 4 GM/100 ML IV 4,000 MG/100 ML BAG IVPB ONE (08:34)
[2023-11-19 08:36] LABS: Calcium 8.2 mg/dL (8.6-10.3); Creatinine, Serum 2.93 mg/dL (0.67-1.17); eGFR CKD-EPI 22.6 (>60)
[2023-11-19] MEDS ORDERED: NS 0.9% 1000 ml BAG 200 ML IV PRN (12:52)
[2023-11-19] MEDS: Heparin 1,000 UNIT/ML 10 ml (10,000 UNITS) CATHLAB/DIALYSIS DIALYSIS PRN (14:49)
[2023-11-20 06:42] LABS: Hematocrit 23.1 % (38-53); Hemoglobin 7.4 g/dL (13.2-16.3); Mean Corpuscular Hemoglobin 29.3 pg (27-33); Mean Corpuscular Volume 91.4 fL (80-97); Mean Platelet Volume 6.9 fL (7.5-11.2); Platelet Count 335 10^3/uL (150-450); Red Blood Count 2.53 10^6/uL (4.06-5.63); Red Cell Distribution Width 22.8 % (12-17); White Blood Count 16.2 10^3/uL (3.6-10.2)
[2023-11-20 06:51] LABS: ABS Basophils 0.2 10^3/uL (0.0-0.1); ABS Eosinophils 0.2 10^3/uL (0.0-0.5); ABS Lymphocytes 1.1 10^3/uL (1.0-4.8); ABS Neutrophils 12.7 10^3/uL (1.5-7.6); Eosinophil % 1.4 %
[2023-11-20 06:53] LABS: Calcium 8.3 mg/dL (8.6-10.3); Creatinine, Serum 2.15 mg/dL (0.67-1.17); Magnesium 1.9 mg/dL (1.9-2.7); Potassium 4.1 mmol/L (3.5-5.0); eGFR CKD-EPI 32.7 (>60)
[2023-11-21] MEDS: Insulin GLARGINE 100 un/ml 10 ml VIAL SUBCUT SCH (09:55)
[2023-11-21] MEDS: Albumin Human 25% 25 GM/100 ML BTL IV PRN (13:46)
[2023-11-21] MEDS: NS 0.9% 1000 ml BAG 100 ML IV PRN (14:59)
[2023-11-22 13:39] LABS: Hematocrit 20.4 % (38-53); Hemoglobin 6.7 g/dL (13.2-16.3); Mean Corpuscular Hemoglobin 30.1 pg (27-33); Mean Corpuscular Volume 91.4 fL (80-97); Platelet Count 323 10^3/uL (150-450); Red Blood Count 2.23 10^6/uL (4.06-5.63); Red Cell Distribution Width 23.4 % (12-17); White Blood Count 15.1 10^3/uL (3.6-10.2)
[2023-11-22 13:46] LABS: ABS Basophils 0.2 10^3/uL (0.0-0.1); ABS Eosinophils 0.2 10^3/uL (0.0-0.5); ABS Lymphocytes 1.2 10^3/uL (1.0-4.8); ABS Neutrophils 11.5 10^3/uL (1.5-7.6); Eosinophil % 1.4 %; Lymphocyte % 7.8 %
[2023-11-22 13:54] LABS: Activated Partial Thrombo Time 28.2 seconds (26.0-38.0); INR 1.32 (0.85-1.14)
[2023-11-22 14:04] LABS: Creatinine, Serum 2.45 mg/dL (0.67-1.17)
[2023-11-22] MEDS ORDERED: Heparin 5000 UNITS/ML 1 mL VIAL SUBCUT SCH (21:00)
[2023-11-22 21:46] LABS: Hematocrit 24.8 % (38-53); Hemoglobin 8.1 g/dL (13.2-16.3)
[2023-11-23 06:37] LABS: Hematocrit 25.7 % (38-53); Hemoglobin 8.1 g/dL (13.2-16.3); Mean Corpuscular Hemoglobin 28.9 pg (27-33); Mean Corpuscular Hgb Conc 31.7 g/dL (31-36); Mean Corpuscular Volume 91.2 fL (80-97); Mean Platelet Volume 6.8 fL (7.5-11.2); Platelet Count 364 10^3/uL (150-450); Red Blood Count 2.82 10^6/uL (4.06-5.63); Red Cell Distribution Width 21.8 % (12-17); White Blood Count 17.7 10^3/uL (3.6-10.2)
[2023-11-23 06:48] LABS: Calcium 9.1 mg/dL (8.6-10.3); Creatinine, Serum 2.82 mg/dL (0.67-1.17); Magnesium 1.7 mg/dL (1.9-2.7); Potassium 4.6 mmol/L (3.5-5.0); eGFR CKD-EPI 23.6 (>60)
[2023-11-23 07:00] LABS: ABS Basophils 0.2 10^3/uL (0.0-0.1); ABS Eosinophils 0.3 10^3/uL (0.0-0.5); ABS Lymphocytes 1.2 10^3/uL (1.0-4.8); ABS Monocytes 2.3 10^3/uL (0.0-1.1); ABS Neutrophils 13.7 10^3/uL (1.5-7.6); Eosinophil % 1.6 %; Lymphocyte % 6.9 %
[2023-11-25 06:31] LABS: Hematocrit 25.4 % (38-53); Mean Corpuscular Hemoglobin 28.9 pg (27-33); Mean Corpuscular Hgb Conc 31.5 g/dL (31-36); Mean Corpuscular Volume 91.6 fL (80-97); Mean Platelet Volume 7.1 fL (7.5-11.2); Platelet Count 356 10^3/uL (150-450); Red Blood Count 2.77 10^6/uL (4.06-5.63); Red Cell Distribution Width 21.3 % (12-17); White Blood Count 19.7 10^3/uL (3.6-10.2)
[2023-11-25 06:33] LABS: ABS Basophils 0.2 10^3/uL (0.0-0.1); ABS Eosinophils 0.2 10^3/uL (0.0-0.5); ABS Lymphocytes 1.4 10^3/uL (1.0-4.8); ABS Monocytes 2.6 10^3/uL (0.0-1.1); ABS Neutrophils 15.3 10^3/uL (1.5-7.6); Eosinophil % 0.9 %
[2023-11-26] MEDS: Glucose ORAL 15 GM TUBE PO ONE (13:52)
[2023-11-26 13:53] VITALS: BP 118/56
== END 2023-11-26 14:10 | DRG 871 ==
LOC: ED 10:49 → EDHOLD 10:49 → MEDTELE 16:00 → SUATTDRO 16:27 → MEDTELE 16:30
PROVIDERS: ADMIT Internal Medicine; ATTEND Student in an Organized Health Care Education/Training Program

== ENCOUNTER 2024-03-08 20:09 | Inpatient (IN) ==
[2024-03-08 21:40] LABS: Hematocrit 24.4 % (38-53); Hemoglobin 7.8 g/dL (13.2-16.3); Mean Corpuscular Hemoglobin 33.7 pg (27-33); Mean Corpuscular Hgb Conc 32.1 g/dL (31-36); Mean Corpuscular Volume 104.9 fL (80-97); Mean Platelet Volume 7.1 fL (7.5-11.2); Platelet Count 239 10^3/uL (150-450); Red Blood Count 2.33 10^6/uL (4.06-5.63); Red Cell Distribution Width 23.3 % (12-17); White Blood Count 19.1 10^3/uL (3.6-10.2)
[2024-03-08 21:41] LABS: ABS Basophils 0.1 10^3/uL (0.0-0.1); ABS Eosinophils 0.3 10^3/uL (0.0-0.5); ABS Lymphocytes 0.9 10^3/uL (1.0-4.8); ABS Neutrophils 15.8 10^3/uL (1.5-7.6); ABS Nucleated RBC 0.01 10^3/ul; Anisocytosis 2+; Basophilic Stippling 2+; Eosinophil % 1.7 %; Lymphocyte % 4.7 %; Macrocytosis 1+; Polychromasia 1+
[2024-03-08 21:49] LABS: Albumin/Globulin Ratio 0.9 (1-3); Calcium 8.3 mg/dL (8.6-10.3); Creatinine, Serum 3.1 mg/dL (0.67-1.17); Globulin 3.2 g/dL (2-4); Potassium 3.8 mmol/L (3.5-5.0); Total Bilirubin 0.4 mg/dL (0.2-1.0); Total Protein 6.2 g/dL (6.4-8.9); eGFR CKD-EPI 21.1 (>60)
[2024-03-08] MEDS: cefTRIAXone 1 gm/50 mL D5W 1 GM/50 ML BAG IV ONE (23:23)
[2024-03-09] MEDS: Azithromycin 500 mg/250 ml NS 500 MG/250 ML BAG IVPB ONE (02:24)
[2024-03-09 02:38] LABS: C Reactive Protein 45.22 mg/L (<8.01)
[2024-03-09 07:10] LABS: Hematocrit 24.1 % (38-53); Hemoglobin 7.9 g/dL (13.2-16.3); Mean Corpuscular Hemoglobin 34.2 pg (27-33); Mean Corpuscular Hgb Conc 32.7 g/dL (31-36); Mean Corpuscular Volume 104.7 fL (80-97); Mean Platelet Volume 6.9 fL (7.5-11.2); Platelet Count 214 10^3/uL (150-450); Red Cell Distribution Width 23.4 % (12-17); White Blood Count 20.1 10^3/uL (3.6-10.2)
[2024-03-09 08:06] LABS: Calcium 8.2 mg/dL (8.6-10.3); Creatinine, Serum 3.35 mg/dL (0.67-1.17); Magnesium 1.7 mg/dL (1.9-2.7); Potassium 3.7 mmol/L (3.5-5.0); eGFR CKD-EPI 19.2 (>60)
[2024-03-09 08:14] LABS: TSH Ultra Thyroid Stim Horm 2.84 mcIU/mL (0.34-5.60)
[2024-03-09 08:25] LABS: Folate 13.67 ng/mL (5.90-24.80)
[2024-03-09 08:30] LABS: ABS Basophils 0.3 10^3/uL (0.0-0.1); ABS Eosinophils 0.3 10^3/uL (0.0-0.5); ABS Lymphocytes 1.1 10^3/uL (1.0-4.8); ABS Monocytes 2.1 10^3/uL (0.0-1.1); ABS Neutrophils 16.4 10^3/uL (1.5-7.6); Eosinophil % 1.5 %; Lymphocyte % 5.4 %
[2024-03-09] MEDS ORDERED: Albumin Human 25% 25 GM/100 ML BTL IV PRN (10:51)
[2024-03-09] MEDS ORDERED: NS 0.9% 1000 ml BAG 100 ML IV PRN (10:51)
[2024-03-09] MEDS ORDERED: NS 0.9% 1000 ml BAG 200 ML IV PRN (10:51)
[2024-03-09] MEDS: [UNRECOGNIZED DRUG - OTHER] PO SCH (13:10)
[2024-03-09 13:23] LABS: Hepatitis B Surface Antigen Nonreactive (Nonreactive)
[2024-03-09 13:41] LABS: Hepatitis B Surface Ab Not Immune (Immune)
[2024-03-09] MEDS: Heparin 1,000 UNIT/ML 10 ml (10,000 UNITS) CATHLAB/DIALYSIS DIALYSIS PRN (14:00)
[2024-03-09] MEDS: Pentafluoroprop/Tetrafluoro 1 SPRAY TOP.SPRAY TOPICAL SCH (14:00)
[2024-03-09] MEDS ORDERED: cefTRIAXone 1 gm/50 mL D5W 1 GM/50 ML BAG IV SCH (23:00)
[2024-03-09] MEDS: cefTRIAXone 1 gm/50 mL D5W 1 GM/50 ML BAG IV SCH (23:34)
[2024-03-10] MEDS: Azithromycin 500 mg/250 ml NS 500 MG/250 ML BAG IVPB SCH (01:14)
[2024-03-10] MEDS ORDERED: Azithromycin 500 mg/250 ml NS 500 MG/250 ML BAG IVPB SCH (02:00)
[2024-03-10 05:48] LABS: ABS Basophils 0.2 10^3/uL (0.0-0.1); ABS Eosinophils 0.3 10^3/uL (0.0-0.5); ABS Lymphocytes 1.2 10^3/uL (1.0-4.8); ABS Monocytes 1.8 10^3/uL (0.0-1.1); ABS Neutrophils 14.3 10^3/uL (1.5-7.6); ABS Nucleated RBC 0.01 10^3/ul; Eosinophil % 1.7 %; Hemoglobin 8.2 g/dL (13.2-16.3); Lymphocyte % 6.5 %; Mean Corpuscular Hemoglobin 33.7 pg (27-33); Mean Corpuscular Hgb Conc 31.5 g/dL (31-36); Platelet Count 221 10^3/uL (150-450); Red Blood Count 2.43 10^6/uL (4.06-5.63); Red Cell Distribution Width 23.3 % (12-17); White Blood Count 17.8 10^3/uL (3.6-10.2)
[2024-03-10 06:05] LABS: Albumin 2.9 g/dL (3.5-5.7); Albumin/Globulin Ratio 0.9 (1-3); Creatinine, Serum 3.07 mg/dL (0.67-1.17); Globulin 3.1 g/dL (2-4); Magnesium 1.7 mg/dL (1.9-2.7); Phosphorus 3.2 mg/dL (2.5-5.0); Total Bilirubin 0.4 mg/dL (0.2-1.0); eGFR CKD-EPI 21.3 (>60)
[2024-03-10] MEDS: Heparin 1,000 UNIT/ML 10 ml (10,000 UNITS) CATHLAB/DIALYSIS DIALYSIS PRN (11:16)
[2024-03-11 06:47] LABS: Albumin/Globulin Ratio 0.9 (1-3); Calcium 8.6 mg/dL (8.6-10.3); Creatinine, Serum 2.31 mg/dL (0.67-1.17); Globulin 3.2 g/dL (2-4); Magnesium 1.8 mg/dL (1.9-2.7); Phosphorus 2.5 mg/dL (2.5-5.0); Potassium 3.7 mmol/L (3.5-5.0); Total Bilirubin 0.4 mg/dL (0.2-1.0); Total Protein 6.2 g/dL (6.4-8.9)
[2024-03-11 08:29] LABS: ABS Basophils 0.2 10^3/uL (0.0-0.1); ABS Eosinophils 0.2 10^3/uL (0.0-0.5); ABS Lymphocytes 1.1 10^3/uL (1.0-4.8); ABS Monocytes 2.3 10^3/uL (0.0-1.1); ABS Neutrophils 15.3 10^3/uL (1.5-7.6); Eosinophil % 1.1 %; Hematocrit 25.3 % (38-53); Hemoglobin 7.9 g/dL (13.2-16.3); Lymphocyte % 5.7 %; Mean Corpuscular Hemoglobin 33.1 pg (27-33); Mean Corpuscular Hgb Conc 31.2 g/dL (31-36); Mean Corpuscular Volume 106.1 fL (80-97); Mean Platelet Volume 7.1 fL (7.5-11.2); Platelet Count 255 10^3/uL (150-450); Red Blood Count 2.39 10^6/uL (4.06-5.63); Red Cell Distribution Width 23.2 % (12-17); White Blood Count 19.1 10^3/uL (3.6-10.2)
[2024-03-11] MEDS: guaiFENesin 100 mg/5 ml LIQ unit dose cup PO PRN (22:32)
[2024-03-12 06:05] LABS: Hematocrit 23.4 % (38-53); Hemoglobin 7.3 g/dL (13.2-16.3); Mean Corpuscular Hemoglobin 33.3 pg (27-33); Mean Corpuscular Hgb Conc 31.1 g/dL (31-36); Mean Corpuscular Volume 106.9 fL (80-97); Red Blood Count 2.19 10^6/uL (4.06-5.63); Red Cell Distribution Width 23.1 % (12-17); White Blood Count 15.6 10^3/uL (3.6-10.2)
[2024-03-12 06:37] LABS: Albumin/Globulin Ratio 0.9 (1-3); Calcium 8.4 mg/dL (8.6-10.3); Globulin 3.2 g/dL (2-4); Magnesium 1.7 mg/dL (1.9-2.7); Potassium 3.6 mmol/L (3.5-5.0); Total Bilirubin 0.4 mg/dL (0.2-1.0); Total Protein 6.2 g/dL (6.4-8.9); eGFR CKD-EPI 35.7 (>60)
[2024-03-12 06:58] LABS: ABS Basophils 0.2 10^3/uL (0.0-0.1); ABS Eosinophils 0.2 10^3/uL (0.0-0.5); ABS Lymphocytes 1.1 10^3/uL (1.0-4.8); ABS Monocytes 1.6 10^3/uL (0.0-1.1); ABS Neutrophils 12.6 10^3/uL (1.5-7.6); Anisocytosis 2+; Eosinophil % 1.2 %; Macrocytosis 1+; Mean Platelet Volume 6.8 fL (7.5-11.2); Platelet Count 225 10^3/uL (150-450)
[2024-03-13 07:05] LABS: Albumin 3.1 g/dL (3.5-5.7); Albumin/Globulin Ratio 0.9 (1-3); Calcium 8.5 mg/dL (8.6-10.3); Creatinine, Serum 1.84 mg/dL (0.67-1.17); Globulin 3.3 g/dL (2-4); Magnesium 1.6 mg/dL (1.9-2.7); Potassium 3.6 mmol/L (3.5-5.0); Total Bilirubin 0.4 mg/dL (0.2-1.0); Total Protein 6.4 g/dL (6.4-8.9); eGFR CKD-EPI 39.4 (>60)
[2024-03-13 07:59] LABS: ABS Basophils 0.2 10^3/uL (0.0-0.1); ABS Eosinophils 0.3 10^3/uL (0.0-0.5); ABS Lymphocytes 1.1 10^3/uL (1.0-4.8); ABS Monocytes 1.6 10^3/uL (0.0-1.1); ABS Nucleated RBC 0.02 10^3/ul; Anisocytosis 2+; Eosinophil % 1.5 %; Hematocrit 24.4 % (38-53); Hemoglobin 7.8 g/dL (13.2-16.3); Hypochromasia 1+; Lymphocyte % 5.8 %; Mean Corpuscular Hemoglobin 34.3 pg (27-33); Mean Corpuscular Hgb Conc 32.1 g/dL (31-36); Mean Corpuscular Volume 106.8 fL (80-97); Nucleated Red Blood Cells % 0.1 %/100WBC (0.0-0.8); Platelet Count 245 10^3/uL (150-450); Polychromasia 1+; Red Blood Count 2.28 10^6/uL (4.06-5.63); Red Cell Distribution Width 23.3 % (12-17); White Blood Count 19.3 10^3/uL (3.6-10.2)
[2024-03-13 09:29] VITALS: BP 106/43
[2024-03-13 12:12] LABS: Body Fluid Appearance Clear; Body Fluid Color Yellow; Body Fluid Source Pleural Fluid
[2024-03-13 12:21] LABS: Body Fluid Total Nucleated 160 /mcL
[2024-03-13] MEDS: oxyCODONE/Acetamin 5/325 mg TAB PO PRN (12:46)
[2024-03-13] MEDS: Magnesium Sulfate 2 gm BAG 2 GM/50 ML BAG IVPB ONE (12:47)
[2024-03-13 13:55] LABS: Body Fluid Mono 81 %; Body Fluid Other Cells 6; Body Fluid Total Cells Counted 200
[2024-03-15 12:11] LABS: Fluid Type, Protein, Total PLEURAL FLUID; Total Protein, BF 3.7 g/dL
== END 2024-03-13 15:30 | disposition home or self-care (01) | DRG 640 ==
LOC: EDHOLD 20:09 → ED 20:09 → SUATTDRO 23:25 → OBSVTOIN 23:25 → MED 03-09 11:13
PROVIDERS: ADMIT Internal Medicine; ATTEND Internal Medicine